=== PATIENT | female | born 1960 | race Caucasian/White ===

== ENCOUNTER 2021-12-04 08:20 | Outpatient (CLI) | payer OTHER, SELFPAY ==
[2021-12-04 10:50] LABS: Chloride* 101 mmol/L (96-114)
[2021-12-04 10:51] LABS: Albumin* 4.9 g/dL (3.3-5.0); Potassium* 4.4 mmol/L (3.6-5.1)
[2021-12-04 10:53] LABS: Bilirubin Total* 0.5 mg/dL (0.1-1.5); Carbon Dioxide* 31 mmol/L (20-32); Cholesterol* 173 mg/dL (90-199); Creatinine* 0.6 mg/dL (0.5-1.5); Estimated Glomerular Filt Rate 101 ml/min; Total Protein* 7.4 g/dL (6.0-8.3)
[2021-12-04 10:54] LABS: Alanine Aminotransferase* 32 U/L (4-35); Alkaline Phosphatase* 87 U/L (40-150); Aspartate Amino Transferase* 36 U/L (12-35); Blood Urea Nitrogen* 11 mg/dL (7-30); Calcium* 9.8 mg/dL (8.4-10.6); Glucose* 113 mg/dL (60-115); HDL Cholesterol* 58 mg/dL (>=50); LDL Cholesterol Calculated 71 mg/dL (<100); Triglycerides* 220 mg/dL (40-149)
[2021-12-04 11:36] LABS: Sodium* 141 mmol/L (135-149)
[2021-12-04 11:41] LABS: Vitamin B12* 595 pg/mL (243-894)
== END 2021-12-04 08:21 | disposition home or self-care (01) ==
PROVIDERS: PCP Family Medicine; Visit Provider Family Medicine
DX: Z01.419 Encounter for gynecological examination (general) (routine) without abnormal findings (principal); E78.5 Hyperlipidemia, unspecified; I10 Essential (primary) hypertension; R20.2 Paresthesia of skin; E66.9 Obesity, unspecified; R73.03 Prediabetes
CPT/HCPCS: 80053; 80061; 82607

== ENCOUNTER 2022-06-12 11:13 | Outpatient (CLI) | payer OTHER, SELFPAY ==
--- NOTE | 2022-06-12 11:30 | CRLHL7_ITS ---
For Patients: As a result of the Cures Act, medical imaging exams and procedure reports are released immediately into your electronic medical record. You may view this report before your referring provider. If you have questions, please contact your health care provider. BILATERAL SCREENING MAMMOGRAM WITH COMPUTER-AIDED DETECTION AND TOMOSYNTHESIS TECHNIQUE: CC and MLO views were obtained. These mammographic images have been obtained using full-field digital technique. These mammographic images were interpreted with the benefit of computer-aided detection. Breast tomosynthesis was used in this interpretation. COMPARISON FILM: 06/08/21, 05/08/20, 04/23/19. FINDINGS: There are scattered areas of fibroglandular density. IMPRESSION: There is no radiographic evidence for malignancy. ASSESSMENT: BI-RADS Category 2: Benign RECOMMENDATION: Routine screening mammogram in 1 year. A lay language report of this examination will be provided to the patient. CHERRI SOLIMAN M.D. Diagnostic/Breast Radiologist [email or web address] Transcribed: 06/12/2022, 1:[address]/Dictated by: Cherri Soliman MD @ 06/12/2022 12:04:00 PM (Electronically Signed)
== END 2022-06-12 11:14 | disposition home or self-care (01) ==
LOC: MAMMO 11:14
PROVIDERS: PCP Family Medicine; Visit Provider Family Medicine
DX: Z12.31 Encounter for screening mammogram for malignant neoplasm of breast (principal)
CPT/HCPCS: 77063; 77067

== ENCOUNTER 2022-08-27 12:53 | Outpatient (CLI) | payer OTHER, SELFPAY ==
--- OUTSIDE RECORDS SUMMARY | 2022-08-27 12:55 | XMS_ITS | Patient Health Record ---
Author Name Unknown Organization [facility] Address [address] [place] [address] Care Team Providers Care Land Acquisition Specialist Name Role Phone Mariana Barbosa Unavailable [phone] Aleah Turenr Unavailable [phone] PROBLEMS Type Condition ICD9-CM Code TAI24-PO Code Onset Dates Condition Status W/U Status Risk SNOMED Code Notes Problem Mixed stress and urge urinary incontinence N39.46 confirmed 961412944 Problem Stress incontinence N39.3 confirmed [id number] Problem Mixed urge and stress incontinence N39.46 confirmed 849820127 Problem Rectocele N81.6 confirmed 489163802 Problem Cystocele, midline N81.11 confirmed 350845088 Problem Overactive bladder N32.81 confirmed [id number] ALLERGIES No Known Allergies ENCOUNTERS from 1960 to 2022-08-27 Encounter Location Date Provider Diagnosis [facility] [address] [place] [address] Mar, Mariana Barbosa Encounter for postoperative care Z48.89 ; Stress incontinence N39.3 and Overactive bladder N32.81 [facility] [address] [place] [address] Mar, Mariana Barbosa Mixed stress and urg e urinary incontinence N39.46 ; Encounter for postoperative care Z48.89 and History of suburethral sling procedure Z98.890 [facility] [address] [place], [place] [id number] Feb, Mariana Barbosa [facility] [address] [place] [address] Feb, Mariana Barbosa Urinary incontinence , unspecified type R32 and Mixed stress and urge urinary incontinence N39.46 [facility] [address] [place], [place] [id number] Dec, Mariana Barbosa [facility] [address] [place], [place] [id number] Dec, Mariana Barbosa [facility] [address] [place] [address] [address] [place] [address] Dec, Mariana Barbosa [facility] [address] [place] [address] Dec, Mariana Barbosa Mixed stress and urg e urinary incontinence N39.46 ; Overactive bladder N32.81 ; Cystocele, midline N81.11 and Rectocele N81.6 [facility] [address] [place] [address] Dec, Mariana Barbosa Urinary incontinence , unspecified type R32 ; Mixed urge and stress incontinence N39.46 and Urinary frequency R35.0 SOCIAL HISTORY Tobacco Use: Social History Observation Description Date Details (start date - stop date) Never Smoker Sex Assigned At : Social History Observation Description Sex Assigned At Unknown Tobacco Use/Smoking Question Answer Notes Are you a never smoker REASON FOR REFERRAL No Information VITAL SIGNS from 1960 to 2022-08-27 Height 65 in Mar, Weight 191.2 lbs Mar, BMI 31.81 kg/m2 Mar, Blood pressure systolic 136 mm Hg Mar, Blood pressure diastolic 92 mm Hg Mar, MEDICATIONS Medication SIG (Take, Route, Frequency, Duration) Notes Start Date End Date Status Omeprazole 20 MG 1 capsule Orally Once a day for 30 day(s) Active Multivitamin Adult - as directed Orally 1 capsule daily Active hydroCHLOROthiazide 25 MG 1 tablet in th morning Orally Once a day for 30 day(s) Active Atenolol 25 MG 1 tablet Orally Once a day for 30 day(s) Active Myrbetriq 25 MG 1 tablet Orally Once a day Active Vitamin D3 1000 UNIT 1 tablet Orally Once a day for 30 day(s) Active Melatonin 3 MG 1 tablet at bedtime as needed with food Orally Once a day for 30 day(s) Active Glucosamine Chondro Complex 2 capsules once daily Active Cholest Off 2 capsules daily Active [place] 3 1200 MG 1 capsule Orally Once a day for 30 day(s) Active Aspirin 81 81 MG 1 tablet Orally Once a day for 30 day(s) Active Tylenol PM Extra Strength 500-25 MG 1 tablet at bedtime as needed Orally Once a day for 30 day(s) Active Trospium Chloride ER 60 MG 1 capsule 1 h our before a meal on an empty stomach Orally Once a day for 30 day(s) Mar, Active Rosuvastatin Calcium 5 MG 1 tablet Orall y Once a day for 30 day(s) Active Probiotic - as directed Orally daily Active RESULTS from 1960 to 2022-08-27 Component Value Reference Range Notes Urinalysis, Routine - IH Reviewed date:12/21/2018 11:31:28 Interpretation: Performing Lab: Notes/Report: Urine Color yellow Yellow - Nathaly Appearance clear Clear - Glucose neg Bilirubin neg Ketone neg Specific [place] 1.020 Blood neg pH 6.0 Protein neg Urobilinogen 0.2 Nitrite neg Leukocytes neg Glucose Bilirubin Ketones Specific [place] Occult Blood pH Protein Urobilinogen Nitrite Leukocytes REASON FOR VISIT No Information MEDICAL (GENERAL) HISTORY Type Description Date Medical History HTN Medical History hx elbow injection Medical History Dyslipidemia Medical History Chronic GERD Medical History Prediabetes Medical History Mixed stress and urge incontinen ce Medical History Obesity (BMI 30.0-34.9) Surgical History Bilateral breast red uction. Suspicious breast tissue discovered, followed by oncology but no cancer dx. Was on tamoxifen for 5 years 04/14/2012 Surgical History meniscus repair of right knee 1 03/2010 Surgical History medial meniscus repair of left knee 04/2005 Surgical History Hemorrhoidectomy 01/18/2013 Surgical History Urethral sling and bulking 02/15 019 MENTAL STATUS No Information ASSESSMENTS Encounter Date Diagnosis Assessment Notes Treatment Notes Treatment Clinical Notes Mar, Encounter for postoperative care (ICD-10 - Z48.89) Today we discussed fully healed from surgery No restrictions, Okay to resume all normal activities Follow up in 6 months to ensure continues to do well, follow up sooner if any issues Mar, Stress incontinence (ICD-10 - N39.3) Mar, Overactive bladder (ICD-10 - N32.81) TOday we discussed some residual urgency and urge incontinence, 90-95% improved from baseline Myrbetriq too expensive Intersted in alterantive medication to try. Rx for trospium sent to pharmacy, alternative could also be vesicare 5mg daily Mar, Other Total face to f tenzin time is 10 minutes, with >50% of time spent in counseling regarding diagnosis, risks and benefits of various treatment plans and expected outcomes. Mar, Mixed stress and urge urinary incontinence (ICD-10 - N39.46) Mar, Encounter for postoperative care (ICD-10 - Z48.89) Today we discussed she is healing appropriately from surgery Continue restrictions for 4 more weeks We reviewed expectations for bleeding and pain All questions answered Mar, History of suburethral sling procedure (ICD-10 - Z98.890) Mar, Other Total face to f tenzin time is 10 minutes, with >50% of time spent in counseling regarding diagnosis, risks and benefits of various treatment plans and expected outcomes. Feb, Urinary incontinence, unspecified type (ICD-10 - R32) Feb, Mixed stress and urge urinary incontinence (ICD-10 - N39.46) Dec, Other Surgeon: Diagnosis: stress incontinence ICD-10: N39.3 Procedure: midurethral sling, cystoscopy CPT: 19378, 16012 Special Equipment: Advantage sling, avail no open [place] scissors, Allis x 4 17 F 70 degree cystoscope 2-0 vicryl Exofin glue 1% lido + epi 10cc Surgeon Notes: Location: [facility] Hospitalization: same day discharge Anesthesia: General *pt will need to be in steep trendelenberg for ~ 5 min of the OR time Allergies: NKDA Health concerns: Time requested (minutes): 60min Consents needed: mesh consent obtained, day of surgery Height: Weight: Date of Surgery: Time of Surgery: Patient Informed: Primary MD: Dec, Mixed stress and urge urinary incontinence (ICD-10 - N39.46) Today we reviewed the diagnosis of stress incontinence. Using diagrams we discussed the cause of FAMILIA is due to weakness of the urethra supportive tissue or of the uretha itself. On exam she was found to have a hypermobile urethra and the cough stress test was *negative She has had prior urodynamic testinng confirming stress incontinence. We reviewed treatment options for stress incontinence include pelvic floor muscle training, OTC poise impressa, incontinence pessary, urethral bulking and an incontience sling. We reviewed the risks, benefits and expected outcomes of each of these therapies. After discussion of risks, benefits and alternatives she desires to proceed with urethral bulking. We reviewed anticipated efficacy is about 70% and there is a chance of recurrence of symptoms over time mainly repeat FAMILIA that may require repeat treatment on average in 3 years. We reviewed method of procedure as office cystoscopy and injection of bulking material. We reviewed risks of the procedure to include: UTI, failure, migration of bulking material, pain at the time of the procedure and incomplete bladder emptying with possible need for self-cath to help with bladder emptying. After discussion she wishes to proceed. Consent was signed for procedure and mesh consent was signed. Dec, Overactive bladder (ICD-10 - N32.81) Today we reviewed the diagnosis of overactive bladder. We reviewed her symptoms are consistent with overactive bladder. On exam she was found to have a normal post void residual. Her urine analysis showed negative for infection. We reviewed treatment options including first line lifestyle modification, fluid management and dietary modifications. A handout was provided. We reviewed other first line options include physical therapy and kegel exerciese. We reviewed the importance of pelvic floor muscle exercises for bladder retraining to increase the time between voids and help decrease her urgency symptoms. We discussed medications can help with her overactive bladdder symptoms. We discussed the two main types of medicaitons are anticholingergics which have the side effects of dry mouth, dry eyes andd constipation. Additonally some women may notice a change in memory with use of anticholingergic medications. Alternative medications includes the beta-3 agonist Myrbetriq which in some women can cause elevation of blood pressure and she should monitor her blood pressure at home if she has a blood pressure cuff and calll us with the results, if she does not have access to a blood pressure cuff she should return in 2 weeks for a blood pressure check. Third line therapy for overactive bladder includes: peripheral tibial nerve stimulation, intradetrusor botox injections and sacral nerve stimulation. We reviewed the mechanism of action, expected outcome and risks and benefits of each of these third line therapies. A handout was provided regarding each of these therapies. After discussion we have decided to start myrbetriq. We discussed urgency has potential to improve after a sling but a sling is not considered a treatment for her overactive bladder. She understands there is also a chance for worsening or no change in urgency after a sling. Samples of myrbetriq 25mg were given today [id number] exp 06/2019 #28 tablets Dec, Cystocele, midline (ICD-10 - N81.11) Today we reviewed the findings on exam of stage 2 cystocele and rectoele. She is not bothered by the prolapse given this we have chosen to persue expectant management for prolaspe Dec, Rectocele (ICD-10 - N81.6) Dec, Other Total face to f tenzin time is 40 minutes, with >50% of time spent in counseling regarding diagnosis, risks and benefits of various treatment plans and expected outcomes. Dec, Urinary incontinence, unspecified type (ICD-10 - R32) The patient was given a voiding collection hat along with a voiding diary. I taught the patient how to fill out the voiding diary and to complete for two 24 hour periods. Explained to the patient that she should bring the completed voiding diary to her consultation appoinment with Dr Barbosa. Five minutes were spent with the patient explaining and answering questions regarding the voiding diary. The patient filled out the Urogynecology Patient Questionnaire. This was scanned to the patient chart and uploaded to patient docs under Urogynecology. Dec, Mixed urge and stress incontinence (ICD-10 - N39.46) Dec, Urinary frequency (ICD-10 - R35.0) Dec, Other Follow up with Dr Barbosa in 2-3 days to discuss the results and to formulate a plan. PLAN OF TREATMENT Medication Medication Name Sig Start Date Stop Date Trospium Chloride ER 60 MG 1 capsule 1 h our before a meal on an empty stomach Orally Once a day for 30 day(s) Mar, Treatment Notes Assessment Notes Clinical Notes Mixed stress and urge urinar y incontinence Today we reviewed the diagnosis of stress incontinence. Using diagrams we discussed the cause of FAMILIA is due to weakness of the urethra supportive tissue or of the uretha itself. On exam she was found to have a hypermobile urethra and the cough stress test was *negative She has had prior urodynamic testinng confirming stress incontinence. We reviewed treatment options for stress incontinence include pelvic floor muscle training, OTC poise impressa, incontinence pessary, urethral bulking and an incontience sling. We reviewed the risks, benefits and expected outcomes of each of these therapies. After discussion of risks, benefits and alternatives she desires to proceed with urethral bulking. We reviewed anticipated efficacy is about 70% and there is a chance of recurrence of symptoms over time mainly repeat FAMILIA that may require repeat treatment on average in 3 years. We reviewed method of procedure as office cystoscopy and injection of bulking material. We reviewed risks of the procedure to include: UTI, failure, migration of bulking material, pain at the time of the procedure and incomplete bladder emptying with possible need for self-cath to help with bladder emptying. After discussion she wishes to proceed. Consent was signed for procedure and mesh consent was signed. Urinary incontinence, unspec ified type The patient was given a voiding collection hat along with a voiding diary. I taught the patient how to fill out the voiding diary and to complete for two 24 hour periods. Explained to the patient that she should bring the completed voiding diary to her consultation appoinment with Dr Barbosa. Five minutes were spent with the patient explaining and answering questions regarding the voiding diary. The patient filled out the Urogynecology Patient Questionnaire. This was scanned to the patient chart and uploaded to patient docs under Urogynecology. Encounter for postoperative care Today braulio alaniz discussed fully healed from surgery No restrictions, Okay to resume all normal activities Follow up in 6 months to ensure continues to do well, follow up sooner if any issues Encounter for postoperative care Today braulio alaniz discussed she is healing appropriately from surgery Continue restrictions for 4 more weeks We reviewed expectations for bleeding and pain All questions answered Overactive bladder Today we reviewed re alaniz diagnosis of overactive bladder. We reviewed her symptoms are consistent with overactive bladder. On exam she was found to have a normal post void residual. Her urine analysis showed negative for infection. We reviewed treatment options including first line lifestyle modification, fluid management and dietary modifications. A handout was provided. We reviewed other first line options include physical therapy and kegel exerciese. We reviewed the importance of pelvic floor muscle exercises for bladder retraining to increase the time between voids and help decrease her urgency symptoms. We discussed medications can help with her overactive bladdder symptoms. We discussed the two main types of medicaitons are anticholingergics which have the side effects of dry mouth, dry eyes andd constipation. Additonally some women may notice a change in memory with use of anticholingergic medications. Alternative medications includes the beta-3 agonist Myrbetriq which in some women can cause elevation of blood pressure and she should monitor her blood pressure at home if she has a blood pressure cuff and calll us with the results, if she does not have access to a blood pressure cuff she should return in 2 weeks for a blood pressure check. Third line therapy for overactive bladder includes: peripheral tibial nerve stimulation, intradetrusor botox injections and sacral nerve stimulation. We reviewed the mechanism of action, expected outcome and risks and benefits of each of these third line therapies. A handout was provided regarding each of these therapies. After discussion we have decided to start myrbetriq. We discussed urgency has potential to improve after a sling but a sling is not considered a treatment for her overactive bladder. She understands there is also a chance for worsening or no change in urgency after a sling. Samples of myrbetriq 25mg were given today [id number] exp 06/2019 #28 tablets Overactive bladder TOday we discussed s ome residual urgency and urge incontinence, 90-95% improved from baseline Myrbetriq too expensive Intersted in alterantive medication to try. Rx for trospium sent to pharmacy, alternative could also be vesicare 5mg daily Cystocele, midline Today we reviewed th e findings on exam of stage 2 cystocele and rectoele. She is not bothered by the prolapse given this we have chosen to persue expectant management for prolaspe Insurance Providers Payer Name Payer Address Payer Phone Insured Name Patient Relationship to Insured Coverage Start Date Coverage End Date Subscriber Number Group Number [id number] (Ins. Bill) [address] [facility] [id number] VALENZUELA Self - patient is the insured [id number] IF[employer]
== END 2022-08-27 12:54 | disposition home or self-care (01) ==
LOC: INJ CL 12:53
PROVIDERS: PCP Family Medicine; Visit Provider Family Medicine
DX: M17.11 Unilateral primary osteoarthritis, right knee (principal); M25.561 Pain in right knee
CPT/HCPCS: 64454

== ENCOUNTER 2022-09-10 12:07 | Outpatient (CLI) | payer OTHER, SELFPAY ==
--- OUTSIDE RECORDS SUMMARY | 2022-09-10 12:09 | XMS_ITS | Patient Health Record ---
Author Name Unknown Organization [facility] [employer] Address [address] [place] [address] Care Team Providers Care Chandelier Maker Name Role Phone Mariana Barbosa Unavailable [phone] Aleah Turner Unavailable [phone] PROBLEMS Type Condition ICD9-CM Code VHP17-GI Code Onset Dates Condition Status W/U Status Risk SNOMED Code Notes Problem Mixed stress and urge urinary incontinence N39.46 confirmed 815049470 Problem Stress incontinence N39.3 confirmed 05433083 Problem Mixed urge and stress incontinence N39.46 confirmed 388677945 Problem Rectocele N81.6 confirmed 760349910 Problem Cystocele, midline N81.11 confirmed 766052253 Problem Overactive bladder N32.81 confirmed [id number] ALLERGIES No Known Allergies ENCOUNTERS from 1960 to 2022-09-10 Encounter Location Date Provider Diagnosis [facility] [address] [place] [address] Mar, Mariana Barbosa Encounter for postoperative care Z48.89 ; Stress incontinence N39.3 and Overactive bladder N32.81 [facility] [address] [place] [address] Mar, Mariana Barbosa Mixed stress and urg e urinary incontinence N39.46 ; Encounter for postoperative care Z48.89 and History of suburethral sling procedure Z98.890 [facility] [address] [place], [place] [id number] Feb, Mariana Barbosa [facility] [address] [place] [address] Feb, Mariana Barbosa Urinary incontinence , unspecified type R32 and Mixed stress and urge urinary incontinence N39.46 [facility] [address] [place], [place] [id number] Dec, Mariana Barbosa [facility] [address] [place], [place] [id number] Dec, Mariana Barbosa [facility] [address] [place] [address] [address] [place] [address] Dec, Mariana Barbosa [facility] [address] [place] [address] Dec, Mariana Barbosa Mixed stress and urg e urinary incontinence N39.46 ; Overactive bladder N32.81 ; Cystocele, midline N81.11 and Rectocele N81.6 [facility] [address] [place] [address] Dec, Mariana Barobsa Urinary incontinence , unspecified type R32 ; [...] No Information VITAL SIGNS from 1960 to 2022-09-10 Height 65 in Mar, Weight 191.2 lbs [...] Active Cholest Off 2 capsules daily Active [place] 3 1200 MG 1 capsule Orally Once [...] Orally daily Active RESULTS from 1960 to 2022-09-10 Component Value Reference Range Notes Urinalysis, Routine - IH Reviewed date:12/21/2018 11:31:28 Interpretation: Performing Lab: Notes/Report: Urine Color yellow Yellow - Nathaly Appearance clear Clear - Glucose neg Bilirubin neg Ketone neg Specific [place] 1.020 Blood neg pH 6.0 Protein neg Urobilinogen 0.2 Nitrite neg Leukocytes neg Glucose Bilirubin Ketones Specific [place] Occult Blood pH Protein Urobilinogen Nitrite Leukocytes [...] ICD-10: N39.3 Procedure: midurethral sling, cystoscopy CPT: 07504, 41406 Special Equipment: Advantage sling, avail no open [place] scissors, Allis x 4 17 F 70 degree cystoscope 2-0 vicryl Exofin glue 1% lido + epi 10cc Surgeon Notes: Location: [facility] Hospitalization: same day discharge Anesthesia: General *pt [...] Samples of myrbetriq 25mg were given today [id number] exp 06/2019 #28 tablets Dec, Cystocele, midline [...] Samples of myrbetriq 25mg were given today [id number] exp 06/2019 #28 tablets Overactive bladder TOday [...] Number [employer] (Ins. Bill) [address] [facility] [id number] VALENZUELA Self - patient is the insured [id number] [employer]B
== END 2022-09-10 12:08 | disposition home or self-care (01) ==
LOC: INJ CL 12:07
PROVIDERS: PCP Family Medicine; Visit Provider Family Medicine
DX: M17.11 Unilateral primary osteoarthritis, right knee (principal); M25.561 Pain in right knee
CPT/HCPCS: 64624; J2250; J3010

== ENCOUNTER 2022-09-24 14:00 | Outpatient (CLI) | payer OTHER, SELFPAY ==
--- OUTSIDE RECORDS SUMMARY | 2022-09-26 07:42 | XMS_ITS | Patient Health Record ---
Author Name Unknown Organization [facility] Address [address] [place], [place] [id number] Support Name Relationship Address Phone NEERAJ CHAVEZ Guarantor Unknown [phone] REASON FOR REFERRAL No Information MEDICATIONS Medication SIG (Take, Route, Frequency, Duration) Notes Start Date End Date Status Trospium Chloride ER 60 MG 1 capsule 1 h our before a meal on an empty stomach Orally Once a day for 30 day(s) 04/15/2019 Active Vitamin D3 1000 UNIT 1 tablet Orally Once a day for 30 day(s) Active Atenolol 25 MG 1 tablet Orally Once a day for 30 day(s) Active Myrbetriq 25 MG 1 tablet Orally Once a day Active hydroCHLOROthiazide 25 MG 1 tablet in morning Orally Once a day for 30 day(s) Active Cholest Off 2 capsules daily Active Rosuvastatin Calcium 5 MG 1 tablet Orall y Once a day for 30 day(s) Active Aspirin 81 81 MG 1 tablet Orally Once a day for 30 day(s) Active Multivitamin Adult - as directed Orally 1 capsule daily Active Glucosamine Chondro Complex 2 capsules once daily Active Melatonin 3 MG 1 tablet at bedtime as needed with food Orally Once a day for 30 day(s) Active Tylenol PM Extra Strength 500-25 MG 1 tablet at bedtime as needed Orally Once a day for 30 day(s) Active [place] 3 1200 MG 1 capsule Orally Once a day for 30 day(s) Active Probiotic - as directed Orally daily Active Omeprazole 20 MG 1 capsule Orally Once a day for 30 day(s) Active SOCIAL HISTORY Tobacco Use: Social History Observation Description Date Details (start date - stop date) Never Smoker NA - NA Sex Assigned At : Social History Observation Description Sex Assigned At Unknown Tobacco Use/Smoking Question Answer Notes Are you a nonsmoker PROBLEMS Problem Type ICD Code Onset Dates Problem Status W/U Status Risk SNOMED Code Notes Problem Overactive bladder (N32.81) Active confirmed 395363944 Problem Cystocele, midline (N81.11) Active confirmed 654036414 Problem Rectocele (N81.6) Active confirmed 157216405 Problem Stress incontinence (N39.3) Active confirmed 89863608 Problem Mixed stress and urge urinary incontinence (N39.46) Active confirmed 702275271 Problem Mixed urge and stress incontinence (N39.46) Active confirmed Mixed incontinence (661640749) PLAN OF TREATMENT No Information Insurance Providers Payer Name Payer Address Payer Phone Subscriber Number Group Number Insured Name Patient Relationship to Insured Coverage Start Date Coverage End Date [employer] (Ins. Bill) [address] [place], [place] [id number] [id number] NEERAJ CHAVEZ Self - patient is the insured MEDICAL (GENERAL) HISTORY Medical History History ICD Code HTN hx elbow injection Dyslipidemia Chronic GERD Prediabetes Mixed stress and urge incontinence Obesity (BMI 30.0-34.9) Surgical History Surgery Date(Month/Year) Bilateral breast reduction. Suspicious breast tissue discovered, followed by oncology but no cancer dx. Was on tamoxifen for 5 years 04/14/2012 meniscus repair of right knee 01/2011 medial meniscus repair of left knee 05/06 05 Hemorrhoidectomy 01/18/2013 Urethral sling and bulking 02/2019
== END 2022-09-24 14:01 | disposition home or self-care (01) ==
LOC: INJ CL 09-26 07:40
PROVIDERS: PCP Family Medicine; Visit Provider Family Medicine
DX: M17.12 Unilateral primary osteoarthritis, left knee (principal); M25.562 Pain in left knee
CPT/HCPCS: 64454

== ENCOUNTER 2022-10-08 13:08 | Outpatient (CLI) | payer OTHER, SELFPAY ==
--- OUTSIDE RECORDS SUMMARY | 2022-10-08 13:11 | XMS_ITS | Patient Health Record ---
Author Name Unknown Organization [facility] Address [address] [place], [place] [id number] Support Name Relationship Address Phone NEERAJ CHAVEZ Guarantor Unknown [phone] REASON FOR REFERRAL No Information MEDICATIONS Medication [...] Once a day for 30 day(s) Active [place] 3 1200 MG 1 capsule Orally Once [...] Notes Problem Overactive bladder (N32.81) Active confirmed 466319134 Problem Cystocele, midline (N81.11) Active confirmed 575237277 Problem Rectocele (N81.6) Active confirmed 952229633 Problem Stress incontinence (N39.3) Active confirmed 64916354 Problem Mixed stress and urge urinary incontinence (N39.46) Active confirmed 387295154 Problem Mixed urge and stress incontinence (N39.46) Active confirmed Mixed incontinence (248751304) PLAN OF TREATMENT No Information Insurance Providers Payer Name Payer Address Payer Phone Subscriber Number Group Number Insured Name Patient Relationship to Insured Coverage Start Date Coverage End Date [employer] (Ins. Bill) [address] [place], [place] [id number] [id number] NEERAJ CHAVEZ Self - patient is [...]
== END 2022-10-08 13:09 | disposition home or self-care (01) ==
LOC: RAD 13:09
PROVIDERS: PCP Family Medicine; Visit Provider Family Medicine
DX: M17.12 Unilateral primary osteoarthritis, left knee (principal); M25.562 Pain in left knee
CPT/HCPCS: 64624; J2250; J3010

== ENCOUNTER 2022-12-03 09:50 | Outpatient (CLI) | payer OTHER, SELFPAY ==
--- OUTSIDE RECORDS SUMMARY | 2022-12-04 11:08 | XMS_ITS | Patient Health Record ---
Author Name Unknown Organization [facility] Address [address] [place], [place] [id number] Support Name Relationship Address Phone NEERAJ CHAVEZ Guarantor Unknown [phone] REASON FOR REFERRAL No Information MEDICATIONS Medication [...] Once a day for 30 day(s) Active [place] 3 1200 MG 1 capsule Orally Once [...] Notes Problem Overactive bladder (N32.81) Active confirmed 913554740 Problem Cystocele, midline (N81.11) Active confirmed 298406503 Problem Rectocele (N81.6) Active confirmed 716957726 Problem Stress incontinence (N39.3) Active confirmed 79153277 Problem Mixed stress and urge urinary incontinence (N39.46) Active confirmed 542207545 Problem Mixed urge and stress incontinence (N39.46) Active confirmed Mixed incontinence (562427845) PLAN OF TREATMENT No Information Insurance Providers Payer Name Payer Address Payer Phone Subscriber Number Group Number Insured Name Patient Relationship to Insured Coverage Start Date Coverage End Date [employer] (Ins. Bill) [address] [place], [place] [id number] [id number] NEERAJ CHAVEZ Self - patient is [...]
== END 2022-12-03 09:51 | disposition home or self-care (01) ==
LOC: NFLDREF 12-04 11:06
PROVIDERS: PCP Family Medicine; Referring Provider Family Medicine; Visit Provider Family Medicine
DX: Z00.00 Encounter for general adult medical examination without abnormal findings (principal); I10 Essential (primary) hypertension; E78.5 Hyperlipidemia, unspecified; R73.03 Prediabetes
CPT/HCPCS: 80053; 80061

== ENCOUNTER 2022-12-23 06:02 | Day surgery (SDC) | payer OTHER, SELFPAY ==
[2022-12-23] VITALS (18 sets, daily range): BP systolic 102–171; BP diastolic 60–91; PULSE 53–70; RESP 14–16; TEMP 36.1–36.6; O2SAT 93–99; BMI 33.1
--- OUTSIDE RECORDS SUMMARY | 2022-12-23 06:05 | XMS_ITS | Patient Health Record ---
Author Name Unknown Organization [facility] Address [address] [place], [place] [id number] Support Name Relationship Address Phone NEERAJ CHAVEZ Guarantor Unknown [phone] REASON FOR REFERRAL No Information MEDICATIONS Medication [...] Once a day for 30 day(s) Active [place] 3 1200 MG 1 capsule Orally Once [...] Notes Problem Overactive bladder (N32.81) Active confirmed 894352543 Problem Cystocele, midline (N81.11) Active confirmed 356631766 Problem Rectocele (N81.6) Active confirmed 754521453 Problem Stress incontinence (N39.3) Active confirmed 09465259 Problem Mixed stress and urge urinary incontinence (N39.46) Active confirmed 096741567 Problem Mixed urge and stress incontinence (N39.46) Active confirmed Mixed incontinence (216676535) PLAN OF TREATMENT No Information Insurance Providers Payer Name Payer Address Payer Phone Subscriber Number Group Number Insured Name Patient Relationship to Insured Coverage Start Date Coverage End Date [employer] (Ins. Bill) [address] [place], [place] [id number] IFB NEERAJ CHAVEZ Self - patient is [...]
[2022-12-23] MEDS: OXYCODONE (CR) 10 MG TAB.ER.12H PO (06:31)
[2022-12-23] MEDS: ACETAMINOPHEN 500 MG TABLET 1000 MG PO (06:31)
[2022-12-23] MEDS: SODIUM CHLORIDE 0.9 % (FLUSH) 10 ML SYRINGE IVF (06:34)
[2022-12-23] MEDS: LACTATED RINGERS 1000 ML 1,000 ML 100 ML IV ×2 (06:34→08:47)
--- NOTE | 2022-12-23 07:00 | SUR.PREOP ---
TIME?OUT:?0700 PT/RN/MDA?VERIFICATION?OF?SURGICAL?SITE,?PROCEDURE,?AND?CONSENT OBTAINED?PRIOR?TO?INVASIVE?PROCEDURE.
[2022-12-23] MEDS: MIDAZOLAM HCL 1 MG/ML inj IVP (07:23)
[2022-12-23] MEDS: fentaNYL 100 MCG/2 ML inj IVP (07:23)
[2022-12-23] MEDS: CEFAZOLIN 2 GM in 0.9 % SODIUM CHLORIDE Mini-bag 100 ML IVPB (07:40)
[2022-12-23] MEDS: TRANEXAMIC ACID 100 MG/ML INJ 1000 MG IV (07:45)
--- NOTE | 2022-12-23 08:09 | W.ANESCHARGE ---
Anesthesia Charges Start Date/Time Anesthesia Start Date: 12/23/22 Anesthesia Start Time: 07:29 Stop Date/Time Anesthesia Stop Date: 12/23/22 Anesthesia Stop Time: 09:25
--- NOTE | 2022-12-23 08:09 | W.PM.NB ---
Nerve Block Nerve Block Time Seen by Provider: 07:24 Date Seen: 12/23/22 Type of block requested by surgeon for post-operative analgesia: adductor canal Side: left Time out performed: Yes Verification of patient name: Yes Verification of date of : Yes Site marking: site marked Name of person performing procedure: Dennis Continuous monitoring Was continuous monitoring of O2 sat, B/P, pumping supervisor, recorded every 15 minutes?: Yes Procedure Checklist: sterile prep, needles and gloves Ultrasound guided. Images saved: Yes Medications given in 5ml increments after negative aspiration: Ropivicaine %: 0.5 mL: 20 Needle gauge: 20 Decadron (mg): 10 Precedex (mcg): 25 Patient tolerated procedure well: Yes Additional comments: Needle noted adjacent to nerve Block Charges Block Charge (with Pro Fee): Femoral Nerve Use of Ultrasound Machine for Block: Yes- US Guidance/pain block
--- NOTE | 2022-12-23 08:10 | P.NB_ITS ---
Nerve Block Nerve Block Time Seen by Provider: 07:24 Date Seen: 12/23/22 Type of block requested by surgeon for post-operative analgesia: geniculars Side: left Time out performed: Yes Verification of patient name: Yes Verification of date of : Yes Site marking: site marked Name of person performing procedure: Dennis Continuous monitoring Was continuous monitoring of O2 sat, B/P, cafeteria monitor, recorded every 15 minutes?: Yes Procedure Checklist: sterile prep, needles and gloves Medications given in 5ml increments after negative aspiration: Ropivicaine %: 0.5 mL: 9 Needle gauge: 25 Patient tolerated procedure well: Yes Block Charges Block Charge (with Pro Fee): Genicular Nerve Block Use of Ultrasound Machine for Block: No
--- NOTE | 2022-12-23 08:59 | P.ORPRC_ITS ---
Procedure Note Date of procedure: 12/23/22 Procedure: PREOPERATIVE DIAGNOSIS: 1. Left knee osteoarthritis, primary, severe POSTOPERATIVE DIAGNOSIS: 1. Left knee osteoarthritis, primary, severe PROCEDURE: 1. Left total knee arthroplasty SURGEON: Chi Hawley MD. SCRAPER OPERATOR: THAO Anne - Of note, a skilled phlebotomist lab assistant was critical for this case to aid in patient positioning, tissue retraction, limb manipulation/positioning, and closure. ANESTHESIA: Spinal anesthetic EBL: 50ml IMPLANTS: DePuy J&J uncemented femur/tibia, cemented patella TKA - Attune Press fit PS femur size 5 regular, size 4 tibia, 5 poly spacer, 32 mm cemented patella TOURNIQUET: 75 min at 300 torr COMPLICATIONS: None evident INDICATIONS: The patient is a pleasant 62-year-old female who has experienced severe left knee pain and difficulty bearing weight. Workup included x-rays which revealed severe osteoarthrosis in the knee. Given the deformity, the dysfunction, and the pain, as well as the failure of nonoperative management, re commendation was made for surgery. FINDINGS: Full-thickness chondral loss broadly throughout the medial compartment with degenerative meniscus pathology. Significant chondromalacia patellofemoral compartment and to a lesser degree lateral compartment. Large effusion upon entering joint. DESCRIPTION OF PROCEDURE: Following a thorough discussion of risks, benefits, and alternatives consent was obtained and the left knee was marked. The patient was brought to the operating room and placed supine on the operating table. Induction of anesthesia was undertaken. 2 g IV Ancef and 1 g tranexamic acid was administered within 1 hr of incision preoperatively. Proper time-out was performed identifying proper patient, site, procedure. The operative extremity was prepped and draped in the appropriate sterile fashion using ChloraPrep after the patient was positioned supine with all bony prominences well padded. A longitudinal, anterior, midline skin incision was made starting approximately 3cm proximal to the superior pole of the patella and advanced distal to the tibial tubercle. A median parapatellar arthrotomy was created. A medial subperiosteal sleeve was created with knife, ravi elevator and curved osteotome. The retropatellar fatpad was resected and the synovium in the suprapatellar pouch excised to visualize the anterior femoral cortex. Femoral preparation was performed via an intramedullary guide. Step drill allowed access into the femoral canal. The distal cutting guide was placed with 5? of valgus and 11 mm cut on the distal femur due to a 10 degree flexion contracture. Femur was sized using a anterior referencing guide in 3? of external rotation. This found have a best fit with the sizing noted above. The 4 in 1 cutting block was then placed, and the distal femur shaped accordingly. The box cut was then created and the trial implant inserted to confirm appropriate fit. We turned our attention to the proximal tibia. Extramedullary guide was util ized for cutting with the goal of being 90 degree cut from the mechanical axis of the tibia in the varus/valgus plane utilizing tibial crest as the primary alignment. Initially a 2 mm resection was performed from the medial tibial plateau. Ultimately, balancing was achieved in both flexion and extension in both varus and valgus. The knee was able to achieve full extension comfortably. The patella was initially measured and found have a thickness of 22 mm. It was resected back to approximately 14 mm. It was sized to be a best fit with as noted above. This was drilled & trial placed. All trials were placed and found to have an excellent stability and balance. At this stage, trial implants were removed, the tibia and femoral components were opened and inserted. Thereafter, the patella was thoroughly irrigated normal saline and dried. The cement was previously mixed on the back table and cement placed followed by the implant. This was clamped and allowed remained stable until the cement cured. The real poly spacer was opened and inserted. All extra cement was removed, and a 3 min Betadine soak performed. Finally, a final irrigation round with normal saline was performed. Closure performed with 0 PDS and #0 Stratafix for the quad tendon/retinaculum. 2-0 Vicryl/Stratafix for the subcutaneous and 4-0 Monocryl for subcuticular closure. Dressings were applied and the patient was awoken from anesthesia after the tourniquet deflated and transferred the PACU in stable condition. A skilled phlebotomist lab assistant was critical for this case to aid in patient positioning, tissue retraction, bone exposure, limb manipulation/positioning, patient safety, and closure. PLAN: 1. Weight bear as tolerated operative extremity. 2. 23 hr perioperative antibiotics. 3. Ice. 4. PT/OT consults for ambulation assistance/mobility education. 5. Social work consult for discharge planning. 6. DVT prophylaxis with at SCDs, Lm Hose, and aspirin twice daily.
--- NOTE | 2022-12-23 09:23 | W.ANESCHARGE ---
Anesthesia Charges Start Date/Time Anesthesia Start Date: 12/23/22 Anesthesia Start Time: 07:29 Stop Date/Time Anesthesia Stop Date: 12/23/22 Anesthesia Stop Time: 09:25
--- NOTE | 2022-12-23 10:00 | SUR.PHASEI ---
patient met discharge criteria per anesthesia
--- NOTE | 2022-12-23 10:57 | CRLHL7_ITS ---
For Patients: As a result of the Cures Act, medical imaging exams and procedure reports are released immediately into your electronic medical record. You may view this report before your referring provider. If you have questions, please contact your health care provider. Indication: POST-OP TKA Technique: Two views left knee Findings/Impression: Hardware from a left total knee arthroplasty is in satisfactory position. Bone alignment is normal. No sign of acute fracture. Postop changes are within normal limits. Dictated by Richard Ospina MD @ 12/23/2022 11:10:10 AM (Electronically Signed)
--- NOTE | 2022-12-23 11:32 | W.PM.H&PU ---
History & Physical Update History & Physical Update H&P Reviewed and patient assessed: No changes noted
--- NOTE | 2022-12-23 12:39 | SUR.PHASEII ---
Transfered patient from bed to recliner, patient ambulated well using walker. Large void in bed noted after transferring patient. Attempted to void on toilet without results. Patient tolerating toast, yogurt and ice water.
--- NOTE | 2022-12-23 13:32 | SUR.PHASEII ---
Pt brought to PT.
--- NOTE | 2022-12-23 14:29 | SUR.PHASEII ---
Patient returned from Physical Therapy by wheelchair with Physical Therapist. Phystical Therapist cleared patient to be discharged. Upon return to [facility], patient voided in bathroom. Patient verbalized readiness to be discharged and understanding of discharge instructions. Patient and verbalized that they are aware of who to contact if they have questions and what to do in emergency situations. Patient was transported to her vehicle by wheelchair.
== END 2022-12-23 14:25 | disposition home or self-care (01) ==
PROVIDERS: PCP Family Medicine; Visit Provider Orthopaedic Surgery Sports Medicine
PROC: (CPT 27447; principal; 2022-12-23 07:30)
DX: M17.12 Unilateral primary osteoarthritis, left knee (principal); G89.18 Other acute postprocedural pain
CPT/HCPCS: 27447; 01402; 64447; 64454; 73560; 76942; 97110; 97116; 97161; A9270; C1776; J0690; J1100; J2250; J2405; J2704; J2795; J3010; J7120

== ENCOUNTER 2022-12-25 16:51 | Inpatient (IN) | payer OTHER, SELFPAY ==
[2022-12-25 17:01] VITALS: BP 121/81; PULSE 97; RESP 16; TEMP 36.7; O2SAT 97; BMI 33.0
[2022-12-25 17:16] LABS: Appearance Urine Clear (Clear); Bilirubin Urine Negative (Negative); Blood Urine Trace-intact (Negative); Color Urine Dark yellow (Yellow); Glucose Urine Negative (Negative); Ketones Urine Negative (Negative); Leukocyte Esterase Urine Negative (Negative); Nitrite Urine Negative (Negative); Protein Urine 1+ (Negative); Specific Gravity Urine 1.025 (1.000-1.030); Urobilinogen Urine 0.2 (0.2-1.0)
[2022-12-25 17:38] LABS: RBC Urine 0-2 (0-2); Squamous Epithelial Cell Urine Few (None-Few); WBC Urine 0-2 (0-5)
[2022-12-25 18:44] VITALS: BP 142/83; PULSE 91; RESP 18; O2SAT 94
--- NOTE | 2022-12-25 18:49 | ED.ABDPAIN ---
HPI - Abdominal Pain General Time Seen by Provider: 18:49 Date Seen: 12/25/22 Chief Complaint: Abdominal Pain Stated Complaint: constipation post OP Time Seen by Provider: 12/25/22 18:39 Source: patient and RN notes reviewed Mode of arrival: ambulatory Limitations: no limitations History of Present Illness HPI narrative: This 62-year-old female is coming in with postoperative constipation. She had a left knee replacement on Friday. She has been using oxycodone, taking 1-2 senna day. She has not had a bowel movement since Friday. She really cannot eat anything, does admit that she had 3 episodes of emesis yesterday. She is getting abdominal pain and cramping. She is still urinating but no concerning urinary symptoms, still feels like she can drink fine. She has had no fevers. Her pain in her knee is controlled. She has only taken Tylenol today and used ice, feels that the knee pain is fine. She did get a dose of MiraLax in today but this was the 1st day. She is concerned about her abdomen at this time. Not passing flatus today. MD elicited complaint: abdominal pain Pertinent past history: constipation Related Data Home Medications Medication Instructions Recorded Confirmed aspirin 81 mg tablet,delayed 81 mg PO QDAY 10/22/21 12/25/22 release cholecalciferol (vitamin D3) 25 1,000 unit PO DAILY 10/22/21 12/25/22 mcg (1,000 unit) capsule multivitamin 1 tab PO QDAY 10/22/21 12/25/22 diclofenac sodium 1 % topical gel 2 g topical QID PRN 12/05/22 12/25/22 melatonin 10 mg tablet 10 mg PO .Bedtime PRN 12/05/22 12/25/22 bisacodyl 1 tab PO BID 12/25/22 12/25/22 ibuprofen 200 mg tablet (Advil) 400 mg PO Q8H 12/25/22 12/25/22 Previous Rx's Medication Instructions Recorded atenolol 25 mg tablet 25 mg PO DAILY #90 tabs 12/05/22 hydrochlorothiazide 25 mg tablet 25 mg PO DAILY #90 tabs 12/05/22 omeprazole 20 mg tablet,delayed 20 mg PO DAILY #90 tabs 12/05/22 release rosuvastatin 5 mg tablet 5 mg PO .Bedtime #90 tabs 12/05/22 trospium 60 mg capsule,extended 60 mg PO QDAY #90 caps 12/05/22 release 24 hr acetaminophen 500 mg capsule 500 - 1,000 mg (1 - 2 x 500 mg) PO 12/23/22 Q6H PRN #100 caps ondansetron 4 mg disintegrating 4 mg PO Q8H #15 tabs 12/23/22 tablet oxycodone 5 mg tablet 5 mg PO Q4-8H PRN pain #40 tabs 12/23/22 sennosides 8.6 mg-docusate sodium 1 tab-cap PO BID PRN constipation 12/23/22 50 mg tablet (Senna-S) #60 tabs Allergies Allergy/AdvReac Type Severity Reaction Status Date / Time No Known Allergies Allergy Verified 12/25/22 19:40 Review of Systems Status of ROS Reports: 6 or more systems reviewed and unremarkable except as noted in History and below [facility] Medical History Normal nuclear stress test Obesity (BMI 30.0-34.9) ?E66.9 - Obesity, unspecified (ICD-10) History of hemorrhoids ?Z87.19 - Personal history of other diseases of the digestive system (ICD-10) Urge incontinence of urine ?N39.41 - Urge incontinence (ICD-10) Prediabetes (2017) ?R73.03 - Prediabetes (ICD-10) Mixed stress and urge urinary incontinence ?N39.46 - Mixed incontinence (ICD-10) Hypertension ?I10 - Essential (primary) hypertension (ICD-10) Dyslipidemia ?E78.5 - Hyperlipidemia, unspecified (ICD-10) Chronic gastroesophageal reflux disease ?K21.9 - Gastro-esophageal reflux disease without esophagitis (ICD-10) Surgical History History of arthroscopy of left knee (05/09/05) ?Z98.890 - Other specified postprocedural states (ICD-10) History of arthroscopy of right knee (10/17/10) ?Z98.890 - Other specified postprocedural states (ICD-10) History of surgery (01/27/19) ?Z98.890 - Other specified postprocedural states (ICD-10) History of carpal tunnel surgery of right wrist (08/22/21) ?Z98.890 - Other specified postprocedural states (ICD-10) Status post laparoscopic cholecystectomy (04/24/21) ?Z90.49 - Acquired absence of other specified parts of digestive tract (ICD-10) History of colonoscopy (2014) ?Z98.890 - Other specified postprocedural states (ICD-10) History of bladder surgery (02/2019) ?Z98.890 - Other specified postprocedural states (ICD-10) History of bilateral breast reduction surgery (2010) ?Z98.890 - Other specified postprocedural states (ICD-10) Family History Sister Breast cancer Myocardial infarction Type 2 diabetes mellitus Father Myocardial infarction, Onset Age: 69 Mother Myocardial infarction, Onset Age: 70 Type 2 diabetes mellitus Brother Myocardial infarction, Onset Age: 67 Type 2 diabetes mellitus Other High blood pressure Osteoarthritis Social History Narrative: Does not exercise on regular basis due to knee pain, 2 cats , secretery firm, 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 drinker,5/week What is your current living situation?: I presently have a place to live Problems where you live: no known problems Problems where you live details: none In the past 12 months, utilities in danger of being shut off: no In past 12 months, lack of transportation kept you from medical appts, meetings, work, or getting things needed for daily living: no In the past 12 mos, have been you worried that your food would run out before you had money to buy more?: never true In the past 12 mos, the food you bought just didn't last and you didn't have money to buy more?: never true Highest level of school completed/degree received: high school graduate Smoking Status: Never smoker Do you use any of these nicotine containing products: None Second hand tobacco smoke exposure: No How often do you have a drink containing alcohol: 2-4 times a month Alcohol type: beer and wine How many standard drinks containing alcohol do you have on a typical day: 1 or 2 How often do you have six or more drinks on one occasion: Never AUDIT-C Alcohol total score: 2 Non-prescribed substance use: denies use Caffeine: No How often does anyone, including family, friends and others, physically hurt you: never How often does anyone, including family, friends and others, insult or talk down to you: never How often does anyone, including family, friends and others, threaten you with harm: never How often does anyone, including family, friends and others, scream or curse at you: never Little interest or pleasure in doing things: not at all Feeling down, depressed, or hopeless: not at all Are you using contraception or practicing any form of control: No service: No Exam Const: Vital Signs, click to edit/add: Vital Signs - 24 hr 12/25/22 17:01 12/25/22 18:44 12/25/22 21:30 Temperature 98.1 F Pulse Rate [Left P ulse Oximeter] Pulse Rate [Pulse Oximeter] 97 91 Respiratory Rate 16 18 Blood Pressure [Ri ght Arm] Blood Pressure [Ri ght Upper Arm] 121/81 142/83 H Pulse Oximetry 97 94 95 Oxygen Delivery Me thod Room Air Room Air 12/25/22 21:30 Temperature 99.7 F H Pulse Rate [Left P ulse Oximeter] 93 Pulse Rate [Pulse Oximeter] Respiratory Rate 18 Blood Pressure [Ri ght Arm] 134/72 Blood Pressure [Ri ght Upper Arm] Pulse Oximetry 95 Oxygen Delivery Me thod Room Air This 62-year-old female is alert, interactive, no apparent distress. She is lying in the bed in exam room 2. Sclera clear, pupils equal round reactive. Lungs clear at the axilla anteriorly, no tachypnea, able to speak in complete sentences. CV regular rate and rhythm, no murmur, normal S1 and S2. Abdomen is soft, nontender, nondistended. She has faint bowel sounds, certainly not very active. Her bandage over the left anterior knee looks to be clean dry intact, no concerning erythema. Documenting provider has reviewed patient's vital signs: yes Course Course ED Course: Will place an IV, make sure she is hydrated with 1 L normal saline. Will get basic labs with basic metabolic panel and CBC, obtain flat and upright of her abdomen to look at the bowel. Need to make sure that there is no evidence of any obstruction. If there is no obstruction, can discuss bowel management with her further. At this time, do not feel a CT is indicated but would consider this if there is any concerning changes with are pending labs or imaging. Reevaluation(s) Time of Reevaluation #1: 19:12 Reevaluation #1: Reviewed patient's abdominal imaging in on my preliminary review, do see air-fluid levels that certainly suggest obstructive process, do not see significant stool in the lower colon. Have ordered CT abdomen pelvis with IV contrast. Have updated patient on this. Will make her NPO at this time. Time of Reevaluation #2: 19:59 Reevaluation #2: Nursing staff reporting lab result of potassium 2.9. Have ordered normal saline with 20 mEq potassium maintenance as well as 3-10 mEq potassium IV riders. Consultations Consultation #1: Spoke with hospitalist Dr. Alexander. He will be down to see the patient. It remains to be seen if this is colitis like this CT showing verses a postop ileus. She is also hypokalemic. He agrees to accept the patient for the hospitalist service. Time: 20:24 Vital Signs Vital signs: Initial Vital Signs Temperature 98.1 F 12/25/22 17:01 Temperature Source Temporal Artery Scan 12/25/22 17:01 Pulse Rate 97 12/25/22 17:01 Respiratory Rate 16 12/25/22 17:01 Blood Pressure 121/81 12/25/22 17:01 Blood Pressure Mean 94 12/25/22 17:01 Blood Pressure Position Sitting 12/25/22 17:01 Pulse Oximetry 97 12/25/22 17:01 Oxygen Delivery Method Room Air 12/25/22 17:01 Vital Signs Temperature 98.1 F 12/25/22 17:01 Pulse Rate 97 12/25/22 17:01 Respiratory Rate 16 12/25/22 17:01 Blood Pressure 121/81 12/25/22 17:01 Pulse Oximetry 97 12/25/22 17:01 Oxygen Delivery Method Room Air 12/25/22 17:01 Temperature 99.7 F H 12/25/22 21:30 Pulse Rate 93 12/25/22 21:30 Respiratory Rate 18 12/25/22 21:30 Blood Pressure 134/72 12/25/22 21:30 Pulse Oximetry 95 12/25/22 21:30 Oxygen Delivery Method Room Air 12/25/22 21:30 MDM - Abdominal Pain Lab Data Attestation: I reviewed the patient's lab results. Labs: Lab Results 12/25/22 12/25/22 Range/Units 17:10 19:24 WBC 22.17 H (4.50-11.00) K/uL RBC 3.96 L (4.00-5.20) m/uL Hgb 11.5 L (12.0-16.0) gm/dL Hct 35.3 (33.0-51.0) % MCV 89 (80-100) fL MCH 29 (26-34) pg MCHC 33 (32-36) gm/dL RDW Coeff of Ankur 14.4 (11.5-15.5) % Plt Count 350 (140-440) K/uL Neut % (Auto) 84.9 H (42.0-72.0) % Lymph % (Auto) 6.6 L (20-44) % [place] % (Auto) 8.2 (0.0-11.0) % Eos % (Auto) 0.0 (0.0-7.0) % Baso % (Auto) 0.0 (0.0-3.0) % Neut # (Auto) 18.80 H (1.7-7.0) K/uL Lymph # (Auto) 1.50 (0.90-2.90) K/uL [place] # (Auto) 1.80 H (0.00-0.90) K/UL Eos # (Auto) 0.00 (0.00-0.50) K/uL Baso # (Auto) 0.00 (0.00-0.30) K/uL Abs Immat Gran (auto) 0.10 (0.00-0.30) K/uL Imm/Tot Granulo (auto) 0.3 % Sodium 133 L (135-149) mmol/L Potassium 2.9 L* (3.6-5.1) mmol/L Chloride 94 L (96-114) mmol/L Carbon Dioxide 29 (20-32) mmol/L Anion Gap 10 (7-15) mEq/L BUN 20 (7-30) mg/dL Creatinine 0.6 (0.5-1.5) mg/dL Estimated Creat Clear 49.08 Estimated GFR 100 ml/min Glucose 139 H (60-115) mg/dL Calcium 8.8 (8.4-10.6) mg/dL C-Reactive Protein 38.1 H (0.5-1.0) mg/dL Urine Color Dark yellow (Yellow) Urine Appearance Clear (Clear) Urine pH 6.0 (5.0-8.5) Ur Specific [place] 1.025 (1.000-1.030) Urine Protein 1+ A (Negative) Urine Glucose (UA) Negative (Negative) Urine Ketones Negative (Negative) Urine Blood Trace-intact A (Negative) Urine Nitrite Negative (Negative) Urine Bilirubin Negative (Negative) Urine Urobilinogen 0.2 (0.2-1.0) Ur Leukocyte Esterase Negative (Negative) Urine RBC 0-2 (0-2) Urine WBC 0-2 (0-5) Ur Squamous Epith Cells Few (None-Few) Urine Bacteria None (None) Imaging Data Abdominal x-ray: Attestation: I have reviewed the pertinent imaging results. Radiologist's impression: Patient: NEERAJ CHAVEZ Facility:?[facility] Patient ID:?[id number] Site Patient ID:?[id number]. Site :?[id number] Study:?XRay Abdomen 2 VIEWS-12/25/2022 7:31:48 PM Ordering Physician:Kameron Benavides Final Report: Indication: Nausea, vomiting and constipation Technique: None Comparison: Upright and supine views the abdomen were acquired Findings: There is no free air. There is distention of bowel with air-fluid levels. This appears to be primarily colon. This raises the possibility a colonic obstruction. Consider a CT. Impression: Abnormally dilated bowel with air-fluid levels. This is a colon and could represent an ileus or low colonic obstruction. No free air. Consider a CT Dictated by Santy Jorge MD @ 12/25/2022 7:53:29 PM (Electronic Signature) CT scan - abdomen: Attestation: I have reviewed the pertinent imaging results. Radiologist's impression: Patient: NEERAJ CHAVEZ Facility:?[facility] Patient ID:?[id number] Site Patient ID:?[id number]. Site :?[id number] Study:?CT Abdomen/Pelvis W/94CC [id number]/[id number] 7:47:24 PM Ordering Physician:Kameron Benavides Final Report: INDICATION: abnormal abdomen xray, nausea, vomiting, no stool output, abdominal pain. TECHNIQUE: CT abdomen and pelvis acquired with 94 cc Isovue 370 IV contrast. COMPARISON: None. FINDINGS: Lower chest: Mild bibasilar atelectasis. Liver: Unremarkable. Normal in size and attenuation. No suspicious masses. Gallbladder and bile ducts: Status postcholecystectomy. No intra or extrahepatic biliary ductal dilatation. Pancreas: Unremarkable. No mass or inflammation. Spleen: Unremarkable. Normal in size. No masses. Adrenal glands: Unremarkable. No nodules. Kidneys: Multiple bilateral parapelvic cysts. No hydronephrosis or hydroureter. No renal or ureteral stones identified. GI tract: The large bowel is nondilated. Air-fluid levels in the large bowel. There is mild enhancement and pericolonic fat stranding especially at the distal transverse colon, splenic flexure (2/63). Distally, there is minimal fluid within the large bowel loops in the sigmoid colon and rectum with predominantly solid fecal material without significant distension. No bowel obstruction. Appendix is within normal limits. Moderate hiatal hernia. Vasculature: Abdominal aorta is normal in caliber. Mesenteric arteries are patent. Lymph nodes: No lymphadenopathy. Peritoneum/Abdominal Wall: Trace free fluid in the pelvis and adjacent to the spleen. No sign of mass or infiltration. No free air or significant free fluid. Pelvis: Unremarkable. Bones: Unremarkable for age. IMPRESSION: Fluid filled loops of large bowel with mild wall thickening and enhancement with pericolonic fat stranding concerning for colitis. No bowel obstruction. Status post cholecystectomy. Please note that all CT scans at this facility use dose modulation, iterative reconstruction, and/or weight-based dosing when appropriate to reduce radiation dose to as low as reasonably achievable. Dictated by Yamil Mayer MD @ 12/25/2022 8:18:11 PM (Electronic Signature) Critical Care Time Critical Care Time Critical Care Time: No Discharge Plan Discharge Clinical Impression: Colitis, Nausea & vomiting, Hypokalemia Patient Disposition: Admitted As Observation
--- NOTE | 2022-12-25 18:54 | CRLHL7_ITS ---
For Patients: As a result of the Century Cures Act, medical imaging exams and procedure reports are released immediately into your electronic medical record. You may view this report before your referring provider. If you have questions, please contact your health care provider. Indication: Nausea, vomiting and constipation Technique: None Comparison: Upright and supine views the abdomen were acquired Findings: There is no free air. There is distention of bowel with air-fluid levels. This appears to be primarily colon. This raises the possibility a colonic obstruction. Consider a CT. Impression: Abnormally dilated bowel with air-fluid levels. This is a colon and could represent an ileus or low colonic obstruction. No free air. Consider a CT Dictated by Santy Jorge MD @ 12/25/2022 7:53:29 PM (Electronically Signed)
--- NOTE | 2022-12-25 19:11 | CRLHL7_ITS ---
For Patients: As a result of the Century Cures Act, medical imaging exams and procedure reports are released immediately into your electronic medical record. You may view this report before your referring provider. If you have questions, please contact your health care provider. INDICATION: abnormal abdomen xray, nausea, vomiting, no stool output, abdominal pain. TECHNIQUE: CT abdomen and pelvis acquired with 94 cc Isovue 370 IV contrast. COMPARISON: None. FINDINGS: Lower chest: Mild bibasilar atelectasis. Liver: Unremarkable. Normal in size and attenuation. No suspicious masses. Gallbladder and bile ducts: Status postcholecystectomy. No intra or extrahepatic biliary ductal dilatation. Pancreas: Unremarkable. No mass or inflammation. Spleen: Unremarkable. Normal in size. No masses. Adrenal glands: Unremarkable. No nodules. Kidneys: Multiple bilateral parapelvic cysts. No hydronephrosis or hydroureter. No renal or ureteral stones identified. GI tract: The large bowel is nondilated. Air-fluid levels in the large bowel. There is mild enhancement and pericolonic fat stranding especially at the distal transverse colon, splenic flexure (2/63). Distally, there is minimal fluid within the large bowel loops in the sigmoid colon and rectum with predominantly solid fecal material without significant distension. No bowel obstruction. Appendix is within normal limits. Moderate hiatal hernia. Vasculature: Abdominal aorta is normal in caliber. Mesenteric arteries are patent. Lymph nodes: No lymphadenopathy. Peritoneum/Abdominal Wall: Trace free fluid in the pelvis and adjacent to the spleen. No sign of mass or infiltration. No free air or significant free fluid. Pelvis: Unremarkable. Bones: Unremarkable for age. IMPRESSION: Fluid filled loops of large bowel with mild wall thickening and enhancement with pericolonic fat stranding concerning for colitis. No bowel obstruction. Status post cholecystectomy. Please note that all CT scans at this facility use dose modulation, iterative reconstruction, and/or weight-based dosing when appropriate to reduce radiation dose to as low as reasonably achievable. Dictated by Yamil Mayer MD @ 12/25/2022 8:18:11 PM (Electronically Signed)
[2022-12-25 19:37] LABS: Hematocrit 35.3 % (33.0-51.0); Hemoglobin* 11.5 gm/dL (12.0-16.0); Immature Granulocytes Pct Auto 0.3 %; Lymphocytes Percent Auto 6.6 % (20-44); Mean Corpuscular HGB Conc 33 gm/dL (32-36); Mean Corpuscular Hemoglobin 29 pg (26-34); Mean Corpuscular Volume 89 fL (80-100); Monocytes Percent Auto 8.2 % (0.0-11.0); Neutrophils Percent Auto 84.9 % (42.0-72.0); Platelet Count* 350 K/uL (140-440); RDW Coefficient of Variation % 14.4 % (11.5-15.5); Red Blood Count 3.96 m/uL (4.00-5.20); White Blood Count* 22.17 K/uL (4.50-11.00)
[2022-12-25 19:39] LABS: Slide Review Reflex No
[2022-12-25 19:50] LABS: Chloride* 94 mmol/L (96-114); Sodium* 133 mmol/L (135-149)
[2022-12-25 19:53] LABS: Creatinine* 0.6 mg/dL (0.5-1.5); Est. Creatinine Clearance* 49.08; Estimated Glomerular Filt Rate 100 ml/min
[2022-12-25 19:54] LABS: Anion Gap 10 mEq/L (7-15); Blood Urea Nitrogen* 20 mg/dL (7-30); Calcium* 8.8 mg/dL (8.4-10.6); Carbon Dioxide* 29 mmol/L (20-32); Glucose* 139 mg/dL (60-115)
[2022-12-25 19:57] LABS: Potassium* 2.9 mmol/L (3.6-5.1)
[2022-12-25] MEDS: POTASSIUM CHLORIDE 10 MEQ/100 ML PIGGYBACK 100 MEQ IVPB ×3 (20:30→22:37)
[2022-12-25] MEDS: 0.9 % SODIUM CH + KCL 20 mEq/L 1,000 ML 100 ML IV (20:30)
[2022-12-25 21:22] LABS: C Reactive Protein* 38.1 mg/dL (0.5-1.0)
[2022-12-25 21:30] VITALS: BP 134/72; PULSE 93; RESP 18; TEMP 37.6; O2SAT 95
[2022-12-25] MEDS: KETOROLAC 30 MG/ML inj 15 MG IVP (22:35)
[2022-12-25] MEDS: bisacodyL 10 MG SUPP.RECT PR (22:35)
[2022-12-25] MEDS: METOPROLOL TARTRATE 1 MG/ML inj 5 MG IVP (22:37)
[2022-12-25] MEDS: 0.9 % SODIUM CH + KCL 20 mEq/L 1,000 ML 350 ML IV (22:43)
--- NOTE | 2022-12-25 23:02 | PC.NURSE ---
Patient arrived to the floor around 2100. Recently had her Left knee replaced.. comes in with abdominal discomfort reports it to me as achy and sometimes has ripples of pain come through.. reported her pain in her lower extremities/back as well at 10/24 IV ketorolac was given. Potassium replacement is running through her IV in her L hand... on the 3rd bag of 10 meq. Bolus of 20meq in Normal saline is running @ 350 an hour. Bladder scanned for 216cc voided 2x of 150. Suppository given. L knee dressing is CDI non pitting edema. SBA with RW. NPO diet in place per orders. Patient would like [place] to help her sleep tonight. Calls appropriately.. call light within reach
[2022-12-25 23:05] LABS: Lactate* 1.3 mmol/L (0.5-1.9)
[2022-12-25 23:21] LABS: Chloride* 97 mmol/L (96-114); Potassium* 3.2 mmol/L (3.6-5.1); Sodium* 133 mmol/L (135-149)
[2022-12-25 23:24] LABS: Anion Gap 8 mEq/L (7-15); Blood Urea Nitrogen* 17 mg/dL (7-30); Carbon Dioxide* 28 mmol/L (20-32); Creatinine* 0.5 mg/dL (0.5-1.5); Est. Creatinine Clearance* 49.08; Estimated Glomerular Filt Rate 105 ml/min; Glucose* 126 mg/dL (60-115)
[2022-12-25 23:25] LABS: Calcium* 8.2 mg/dL (8.4-10.6); Magnesium* 1.7 mg/dL (1.5-2.6)
[2022-12-25] MEDS: MELATONIN 3 MG TABLET PO (23:28)
[2022-12-25 23:40] VITALS: BP 138/77; PULSE 86; PULSE 94; RESP 16; TEMP 36.9; O2SAT 94
--- NOTE | 2022-12-26 00:25 | P.IMHP_ITS ---
Hospitalist- H&P: HPI History of Present Illness Date Seen: 12/25/22 Chief complaint: constipation post OP Narrative: Graciela Morrissey is a 62 year old female status post left knee arthroplasty day to presenting with 1 day history of abdominal pain nausea vomiting. Patient underwent outpatient left knee arthroplasty 2 days ago on December 23 2022. Procedure was uncomplicated she was discharged home the same day. She did fairly well until the 1st day postop in the afternoon when she developed generalized abdominal pain and had a couple emesis. Nonbloody emesis. She reports she has not been passing gas and has not had a bowel movement since the day before surgery. She is taking senna and MiraLax without results. After surgery for the 1st day she was able to take in p.o. food and fluid without difficulty. Her last meal was noon on 12/24/2022. After that she had her emesis. She has been trying to to take in fluids since that time but otherwise eating very little. She has no history of bowel problems. She has had a cholecystectomy. She reports her in normal bowel function is irregular bowel movement every day without straining. She also has had meniscus surgery on her knee and breast reduction surgery. She notes after breast reduction surgery she went 4 days wit hout a bowel movement and that was a problem for her. She was taking oxycodone for pain until she started feeling sick and then stop taking it. She has had no oxycodone today. She also takes trospium, which has anticholinergic affects on her bladder and her bowels. Review of Systems Narrative: Patient reports her knee is doing well after surgery. Pain is manageable. She has no other concerns except her abdominal pain [facility] Medical History Normal nuclear stress test Obesity (BMI 30.0-34.9) ?E66.9 - Obesity, unspecified (ICD-10) History of hemorrhoids ?Z87.19 - Personal history of other diseases of the digestive system (ICD-10) Urge incontinence of urine ?N39.41 - Urge incontinence (ICD-10) Prediabetes (2017) ?R73.03 - Prediabetes (ICD-10) Mixed stress and urge urinary incontinence ?N39.46 - Mixed incontinence (ICD-10) Hypertension ?I10 - Essential (primary) hypertension (ICD-10) Dyslipidemia ?E78.5 - Hyperlipidemia, unspecified (ICD-10) Chronic gastroesophageal reflux disease ?K21.9 - Gastro-esophageal reflux disease without esophagitis (ICD-10) Surgical History History of arthroscopy of left knee (05/09/05) ?Z98.890 - Other specified postprocedural states (ICD-10) History of arthroscopy of right knee (10/17/10) ?Z98.890 - Other specified postprocedural states (ICD-10) History of surgery (01/27/19) ?Z98.890 - Other specified postprocedural states (ICD-10) History of carpal tunnel surgery of right wrist (08/22/21) ?Z98.890 - Other specified postprocedural states (ICD-10) Status post laparoscopic cholecystectomy (04/24/21) ?Z90.49 - Acquired absence of other specified parts of digestive tract (ICD- 10) History of colonoscopy (2014) ?Z98.890 - Other specified postprocedural states (ICD-10) History of bladder surgery (02/2019) ?Z98.890 - Other specified postprocedural states (ICD-10) History of bilateral breast reduction surgery (2010) ?Z98.890 - Other specified postprocedural states (ICD-10) Family History Sister Breast cancer Myocardial infarction Type 2 diabetes mellitus Father Myocardial infarction, Onset Age: 69 Mother Myocardial infarction, Onset Age: 70 Type 2 diabetes mellitus Brother Myocardial infarction, Onset Age: 67 Type 2 diabetes mellitus Other High blood pressure Osteoarthritis Social History Narrative: Does not exercise on regular basis due to knee pain, 2 cats , secretery firm, 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 drinker,5/week What is your current living situation?: I presently have a place to live Problems where you live: no known problems Problems where you live details: none In the past 12 months, utilities in danger of being shut off: no In past 12 months, lack of transportation kept you from medical appts, meetings, work, or getting things needed for daily living: no In the past 12 mos, have been you worried that your food would run out before you had money to buy more?: never true In the past 12 mos, the food you bought just didn't last and you didn't have money to buy more?: never true Highest level of school completed/degree received: high school graduate Smoking Status: Never smoker Do you use any of these nicotine containing products: None Second hand tobacco smoke exposure: No How often do you have a drink containing alcohol: 2-4 times a month Alcohol type: beer and wine How many standard drinks containing alcohol do you have on a typical day: 1 or 2 How often do you have six or more drinks on one occasion: Never AUDIT-C Alcohol total score: 2 Non-prescribed substance use: denies use Caffeine: No How often does anyone, including family, friends and others, physically hurt you : never How often does anyone, including family, friends and others, insult or talk down to you: never How often does anyone, including family, friends and others, threaten you with harm: never How often does anyone, including family, friends and others, scream or curse at you: never Little interest or pleasure in doing things: not at all Feeling down, depressed, or hopeless: not at all Are you using contraception or practicing any form of control: No service: No Meds Home Medications and Allergies Home Medications Medication Instructions Recorded Confirmed Type aspirin 81 mg tablet,delayed 81 mg PO QDAY 10/22/21 12/25/22 History release cholecalciferol (vitamin D3) 25 1,000 unit PO DAILY 10/22/21 12/25/22 History mcg (1,000 unit) capsule multivitamin 1 tab PO QDAY 10/22/21 12/25/22 History diclofenac sodium 1 % topical gel 2 g topical QID PRN 12/05/22 12/25/22 History melatonin 10 mg tablet 10 mg PO .Bedtime PRN 12/05/22 12/25/22 History bisacodyl 1 tab PO BID 12/25/22 12/25/22 History ibuprofen 200 mg tablet (Advil) 400 mg PO Q8H 12/25/22 12/25/22 History Allergies Allergy/AdvReac Type Severity Reaction Status Date / Time No Known Allergies Allergy Verified 12/25/22 19:40 Exam Narrative: Exam Narrative: She is alert and appears in no distress. She gives her own history. Eyes normal. Oropharynx normal with dry mucous membranes. Neck is supple without mass or adenopathy. Respirations are clear to auscultation. Cardiovascular: S1, S2, regular rate and rhythm. No murmur gallop or rub. Abdomen: Bowel sounds absent. Abdomen is distended with mild to moderate diffuse tenderness in the upper abdomen. No peritonitis. Only mild lower abdominal tenderness. No palpable mass. External genitalia normal. Left knee is examined. The incision is clean and dry without significant erythema or drainage. Mild to moderate bruising around the knee consistent with her postoperative status. Const: Vital Signs, click to edit/add: Vital Signs - 24 hr 12/25/22 17:01 12/25/22 18:44 12/25/22 21:30 Temperature 98.1 F Pulse Rate [Left P ulse Oximeter] Pulse Rate [Pulse Oximeter] 97 91 Respiratory Rate 16 18 Blood Pressure [Ri ght Arm] Blood Pressure [Ri ght Upper Arm] 121/81 142/83 H Pulse Oximetry 97 94 95 Oxygen Delivery Me thod Room Air Room Air 12/25/22 21:30 Temperature 99.7 F H Pulse Rate [Left P ulse Oximeter] 93 Pulse Rate [Pulse Oximeter] Respiratory Rate 18 Blood Pressure [Ri ght Arm] 134/72 Blood Pressure [Ri ght Upper Arm] Pulse Oximetry 95 Oxygen Delivery Me thod Room Air Documenting provider has reviewed patient's vital signs: yes Hospitalist - H&P: Result Labs Labs: Short CBC 12/25/22 Range/Units 19:24 WBC 22.17 H (4.50-11.00) K/uL Hgb 11.5 L (12.0-16.0) gm/dL Hct 35.3 (33.0-51.0) % Plt Count 350 (140-440) K/uL BMP 12/25/22 12/25/22 19:24 23:00 Sodium 133 L 133 L Potassium 2.9 L* 3.2 L Chloride 94 L 97 Carbon Dioxide 29 28 BUN 20 17 Creatinine 0.6 0.5 Glucose 139 H 126 H Calcium 8.8 8.2 L Urine 12/25/22 Range/Units 17:10 Urine Color Dark yellow (Yellow) Urine Appearance Clear (Clear) Urine pH 6.0 (5.0-8.5) Ur Specific [place] 1.025 (1.000-1.030) Urine Protein 1+ A (Negative) Urine Glucose (UA) Negative (Negative) Imaging CT scan - abdomen: Radiologist's impression: INDICATION: abnormal abdomen xray, nausea, vomiting, no stool output, abdominal pain. TECHNIQUE: CT abdomen and pelvis acquired with 94 cc Isovue 370 IV contrast. COMPARISON: None. FINDINGS: Lower chest: Mild bibasilar atelectasis. Liver: Unremarkable. Normal in size and attenuation. No suspicious masses. Gallbladder and bile ducts: Status postcholecystectomy. No intra or extrahepatic biliary ductal dilatation. Pancreas: Unremarkable. No mass or inflammation. Spleen: Unremarkable. Normal in size. No masses. Adrenal glands: Unremarkable. No nodules. Kidneys: Multiple bilateral parapelvic cysts. No hydronephrosis or hydroureter. No renal or ureteral stones identified. GI tract: The large bowel is nondilated. Air-fluid levels in the large bowel. There is mild enhancement and pericolonic fat stranding especially at the distal transverse colon, splenic flexure (2/63). Distally, there is minimal fluid within the large bowel loops in the sigmoid colon and rectum with predominantly solid fecal material without significant distension. No bowel obstruction. Appendix is within normal limits. Moderate hiatal hernia. Vasculature: Abdominal aorta is normal in caliber. Mesenteric arteries are patent. Lymph nodes: No lymphadenopathy. Peritoneum/Abdominal Wall: Trace free fluid in the pelvis and adjacent to the spleen. No sign of mass or infiltration. No free air or significant free fluid. Pelvis: Unremarkable. Bones: Unremarkable for age. IMPRESSION: Fluid filled loops of large bowel with mild wall thickening and enhancement with pericolonic fat stranding concerning for colitis. No bowel obstruction. Status post cholecystectomy. Assessment and Plan Assessment and plan (1) Paralytic ileus of large intestine: Problem comment: Appears to have a ileus of the large intestines following knee surgery. Will provide IV fluids, correct electrolytes, stop opioids and anticholinergics. Consult surgery Status: Acute (2) Colitis: Problem comment: Radiologist noted some fat stranding around the colon. Uncertain significance. Monitor for complications of an infectious process. Status: Acute (3) Hypokalemia: Problem comment: Correct with IV potassium Status: Acute (4) Mixed stress and urge urinary incontinence: Problem comment: stop Trospium Status: Chronic Plan Admit to the hospital for IV fluids, IV potassium, monitoring of bowel function. Conservative management to start with. Start antibiotics if evidence of infection. Total time spent today is 75 minutes, 50 minutes in coordination of care and discussing with patient and and surgery ongoing management of ileus
[2022-12-26] MEDS: 0.9 % SODIUM CH + KCL 20 mEq/L 1,000 ML 125 ML IV (02:13)
[2022-12-26 03:30] VITALS: BP 129/74; PULSE 96; RESP 16; TEMP 38; O2SAT 93
[2022-12-26] MEDS: METOPROLOL TARTRATE 1 MG/ML inj 5 MG IVP ×2 (04:42→11:31)
[2022-12-26] MEDS: KETOROLAC 30 MG/ML inj 15 MG IVP ×2 (04:56→11:30)
[2022-12-26 04:57] VITALS: TEMP 38
[2022-12-26] MEDS: ACETAMINOPHEN 325 MG TABLET 650 MG PO ×2 (04:57→21:50)
[2022-12-26 06:30] LABS: Basophils Percent Auto 0.1 % (0.0-3.0); Eosinophils Percent Auto 0.1 % (0.0-7.0); Lymphocytes Percent Auto 6.6 % (20-44); Mean Corpuscular HGB Conc 32 gm/dL (32-36); Mean Corpuscular Hemoglobin 29 pg (26-34); Mean Corpuscular Volume 90 fL (80-100); Monocytes Percent Auto 8.2 % (0.0-11.0); Platelet Count* 265 K/uL (140-440); RDW Coefficient of Variation % 14.4 % (11.5-15.5); Red Blood Count 3.11 m/uL (4.00-5.20); White Blood Count* 15.71 K/uL (4.50-11.00)
[2022-12-26 06:36] LABS: Slide Review Reflex No
--- NOTE | 2022-12-26 06:48 | PC.NURSE ---
Pt alert and oriented x3. Afebrile. Pt reports 7/10 pain in abdomen, pain managed with scheduled medications. Pt denies chest pain, SOB, and N/V. Pt?s left knee dressing is CDI. Pt is up SBA with walker gait belt. Pt is voiding and slept intermittently throughout night. ?
[2022-12-26 07:02] LABS: Chloride* 102 mmol/L (96-114); Potassium* 3.4 mmol/L (3.6-5.1); Sodium* 134 mmol/L (135-149)
[2022-12-26 07:05] LABS: Creatinine* 0.6 mg/dL (0.5-1.5); Est. Creatinine Clearance* 49.08; Estimated Glomerular Filt Rate 100 ml/min
[2022-12-26 07:06] LABS: Anion Gap 6 mEq/L (7-15); Blood Urea Nitrogen* 17 mg/dL (7-30); Calcium* 7.8 mg/dL (8.4-10.6); Carbon Dioxide* 26 mmol/L (20-32); Glucose* 117 mg/dL (60-115)
[2022-12-26 07:43] LABS: C Reactive Protein* 35.6 mg/dL (0.5-1.0)
[2022-12-26 08:15] VITALS: BP 115/74; PULSE 83; RESP 18; TEMP 37; O2SAT 94
[2022-12-26 09:44] LABS: CDIFFEPI 027 PRESUMPTIVE NEGATIVE (Negative)
[2022-12-26 09:50] LABS: C.Difficile POSITIVE (Negative)
[2022-12-26] MEDS: bisacodyL 10 MG SUPP.RECT PR (10:24)
[2022-12-26] MEDS: VANCOMYCIN 125 MG CAPSULE PO ×4 (10:44→21:49)
[2022-12-26 11:00] VITALS: BP 117/72; PULSE 76; RESP 18; TEMP 37; O2SAT 95
--- NOTE | 2022-12-26 11:39 | P.GSCN_ITS ---
History of Present Illness Consult details Date Seen: 12/26/22 Consult date: 12/26/22 Narrative: Patient is a 62-year-old female who underwent a left total knee on Friday12/24/2022. She was discharged same day. At home she complained of increased abdominal pain and distension. She last had a bowel movement on Friday before the procedure. Postoperatively she was taking oxycodone for pain control. She had also been taking two senna stool softeners per day. On the day of presentation to the emergency department she had 1 dose of MiraLax. She describes the pain as a cramping sensation of her lower abdomen that would come and go. She did have some nausea and 1 episode of emesis yesterday. She does have a history of postop constipation, but reports that it has never been this bad. On CT imaging evidence of liquid stool within the right side of the colon. Sigmoid and rectum are decompressed. Some mild thickening of the colonic wall concerning for possible colitis. CBC demonstrated a leukocytosis of 22. She was admitted to the hospitalist service. This morning she states that she has had several liquidy stools. A stool sample was taken and positive for C diff colitis. Review of Systems 2 Status of ROS: Reports: 6 or more systems reviewed and unremarkable except as noted in History and below [facility] Medical History Normal nuclear stress test Obesity (BMI 30.0-34.9) ?E66.9 - Obesity, unspecified (ICD-10) History of hemorrhoids ?Z87.19 - Personal history of other diseases of the digestive system (ICD-10) Urge incontinence of urine ?N39.41 - Urge incontinence (ICD-10) Prediabetes (2017) ?R73.03 - Prediabetes (ICD-10) Mixed stress and urge urinary incontinence ?N39.46 - Mixed incontinence (ICD-10) Hypertension ?I10 - Essential (primary) hypertension (ICD-10) Dyslipidemia ?E78.5 - Hyperlipidemia, unspecified (ICD-10) Chronic gastroesophageal reflux disease ?K21.9 - Gastro-esophageal reflux disease without esophagitis (ICD-10) Surgical History History of arthroscopy of left knee (05/09/05) ?Z98.890 - Other specified postprocedural states (ICD-10) History of arthroscopy of right knee (10/17/10) ?Z98.890 - Other specified postprocedural states (ICD-10) History of surgery (01/27/19) ?Z98.890 - Other specified postprocedural states (ICD-10) History of carpal tunnel surgery of right wrist (08/22/21) ?Z98.890 - Other specified postprocedural states (ICD-10) Status post laparoscopic cholecystectomy (04/24/21) ?Z90.49 - Acquired absence of other specified parts of digestive tract (ICD- 10) History of colonoscopy (2014) ?Z98.890 - Other specified postprocedural states (ICD-10) History of bladder surgery (02/2019) ?Z98.890 - Other specified postprocedural states (ICD-10) History of bilateral breast reduction surgery (2010) ?Z98.890 - Other specified postprocedural states (ICD-10) Family History Sister Breast cancer Myocardial infarction Type 2 diabetes mellitus Father Myocardial infarction, Onset Age: 69 Mother Myocardial infarction, Onset Age: 70 Type 2 diabetes mellitus Brother Myocardial infarction, Onset Age: 67 Type 2 diabetes mellitus Other High blood pressure Osteoarthritis Social History Narrative: Does not exercise on regular basis due to knee pain, 2 cats , secretery firm, 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 drinker,5/week What is your current living situation?: I presently have a place to live Problems where you live: no known problems Problems where you live details: none In the past 12 months, utilities in danger of being shut off: no In past 12 months, lack of transportation kept you from medical appts, meetings, work, or getting things needed for daily living: no In the past 12 mos, have been you worried that your food would run out before you had money to buy more?: never true In the past 12 mos, the food you bought just didn't last and you didn't have money to buy more?: never true Highest level of school completed/degree received: high school graduate Smoking Status: Never smoker Do you use any of these nicotine containing products: None Second hand tobacco smoke exposure: No How often do you have a drink containing alcohol: 2-4 times a month Alcohol type: beer and wine How many standard drinks containing alcohol do you have on a typical day: 1 or 2 How often do you have six or more drinks on one occasion: Never AUDIT-C Alcohol total score: 2 Non-prescribed substance use: denies use Caffeine: No How often does anyone, including family, friends and others, physically hurt you : never How often does anyone, including family, friends and others, insult or talk down to you: never How often does anyone, including family, friends and others, threaten you with harm: never How often does anyone, including family, friends and others, scream or curse at you: never Little interest or pleasure in doing things: not at all Feeling down, depressed, or hopeless: not at all Are you using contraception or practicing any form of control: No service: No Meds Home Medications and Allergies Home Medications Medication Instructions Recorded Confirmed Type aspirin 81 mg tablet,delayed 81 mg PO QDAY 10/22/21 12/25/22 History release multivitamin 1 tab PO QDAY 10/22/21 12/25/22 History diclofenac sodium 1 % topical gel 2 g topical QID PRN 12/05/22 12/26/22 History melatonin 10 mg tablet 10 mg PO HS PRN 12/05/22 12/26/22 History bisacodyl 1 tab PO BID 12/25/22 12/25/22 History ibuprofen 200 mg tablet (Advil) 400 mg PO Q8H 12/25/22 12/25/22 History cholecalciferol (vitamin D3) 25 25 mcg PO DAILY 12/26/22 12/26/22 History mcg (1,000 unit) tablet rosuvastatin 5 mg tablet 5 mg PO HS 12/26/22 12/26/22 History Allergies Allergy/AdvReac Type Severity Reaction Status Date / Time No Known Allergies Allergy Verified 12/25/22 19:40 Exam Narrative: Exam Narrative: General: Alert and oriented, no acute distress. Nontoxic in appearance Respiratory: Equal breath rise, maintained on room air CV: Well perfused Abdomen: Moderate distention, diffuse lower abdominal tenderness to palpation, tympanic, no guarding or rebound. Const: Vital Signs, click to edit/add: Vital Signs - 24 hr 12/25/22 17:01 12/25/22 18:44 12/25/22 21:30 Temperature 98.1 F Pulse Rate [Left P ulse Oximeter] Pulse Rate [Pulse Oximeter] 97 91 Respiratory Rate 16 18 Blood Pressure [Ri ght Arm] Blood Pressure [Ri ght Upper Arm] 121/81 142/83 H Pulse Oximetry 97 94 95 Oxygen Delivery Me thod Room Air Room Air 12/25/22 21:30 12/25/22 23:40 12/25/22 23:40 Temperature 99.7 F H 98.5 F Pulse Rate [Left P ulse Oximeter] 93 86 94 Pulse Rate [Pulse Oximeter] Respiratory Rate 18 16 16 Blood Pressure [Ri ght Arm] 134/72 138/77 Blood Pressure [Ri ght Upper Arm] Pulse Oximetry 95 94 Oxygen Delivery Me thod Room Air Room Air 12/26/22 03:30 12/26/22 04:57 Temperature 100.4 F H 100.4 F H Pulse Rate [Left P ulse Oximeter] 96 Pulse Rate [Pulse Oximeter] Respiratory Rate 16 Blood Pressure [Ri ght Arm] 129/74 Blood Pressure [Ri ght Upper Arm] Pulse Oximetry 93 Oxygen Delivery Me thod Room Air Results Labs Labs: Abnormal lab results 12/25/22 12/25/22 12/25/22 Range/Units 17:10 19:24 23:00 WBC 22.17 H (4.50-11.00) K/uL RBC 3.96 L (4.00-5.20) m/uL Hgb 11.5 L (12.0-16.0) gm/dL Hct (33.0-51.0) % Neut % (Auto) 84.9 H (42.0-72.0) % Lymph % (Auto) 6.6 L (20-44) % Neut # (Auto) 18.80 H (1.7-7.0) K/uL [place] # (Auto) 1.80 H (0.00-0.90) K/UL Sodium 133 L 133 L (135-149) mmol/L Potassium 2.9 L* 3.2 L (3.6-5.1) mmol/L Chloride 94 L (96-114) mmol/L Anion Gap (7-15) mEq/L Glucose 139 H 126 H (60-115) mg/dL Calcium 8.2 L (8.4-10.6) mg/dL C-Reactive Protein 38.1 H (0.5-1.0) mg/dL Urine Protein 1+ A (Negative) Urine Blood Trace-intact A (Negative) Stl C. diff Tox B Gene (Negative) 12/26/22 12/26/22 Range/Units 05:42 08:43 WBC 15.71 H (4.50-11.00) K/uL RBC 3.11 L (4.00-5.20) m/uL Hgb 9.0 L (12.0-16.0) gm/dL Hct 28.0 L (33.0-51.0) % Neut % (Auto) 84.0 H (42.0-72.0) % Lymph % (Auto) 6.6 L (20-44) % Neut # (Auto) 13.20 H (1.7-7.0) K/uL [place] # (Auto) 1.30 H (0.00-0.90) K/UL Sodium 134 L (135-149) mmol/L Potassium 3.4 L (3.6-5.1) mmol/L Chloride (96-114) mmol/L Anion Gap 6 L (7-15) mEq/L Glucose 117 H (60-115) mg/dL Calcium 7.8 L (8.4-10.6) mg/dL C-Reactive Protein 35.6 H (0.5-1.0) mg/dL Urine Protein (Negative) Urine Blood (Negative) Stl C. diff Tox B Gene POSITIVE A* (Negative) Diabetes panel 12/25/22 12/25/22 12/26/22 Range/Units 19:24 23:00 05:42 Sodium 133 L 133 L 134 L (135-149) mmol/L Potassium 2.9 L* 3.2 L 3.4 L (3.6-5.1) mmol/L Chloride 94 L 97 102 (96-114) mmol/L Carbon Dioxide 29 28 26 (20-32) mmol/L BUN 20 17 17 (7-30) mg/dL Creatinine 0.6 0.5 0.6 (0.5-1.5) mg/dL Glucose 139 H 126 H 117 H (60-115) mg/dL Calcium 8.8 8.2 L 7.8 L (8.4-10.6) mg/dL Calcium panel 12/25/22 12/25/22 12/26/22 Range/Units 19:24 23:00 05:42 Calcium 8.8 8.2 L 7.8 L (8.4-10.6) mg/dL Pituitary panel 12/25/22 12/25/22 12/26/22 Range/Units 19:24 23:00 05:42 Sodium 133 L 133 L 134 L (135-149) mmol/L Potassium 2.9 L* 3.2 L 3.4 L (3.6-5.1) mmol/L Chloride 94 L 97 102 (96-114) mmol/L Carbon Dioxide 29 28 26 (20-32) mmol/L BUN 20 17 17 (7-30) mg/dL Creatinine 0.6 0.5 0.6 (0.5-1.5) mg/dL Glucose 139 H 126 H 117 H (60-115) mg/dL Calcium 8.8 8.2 L 7.8 L (8.4-10.6) mg/dL Adrenal panel 12/25/22 12/25/22 12/26/22 Range/Units 19:24 23:00 05:42 Sodium 133 L 133 L 134 L (135-149) mmol/L Potassium 2.9 L* 3.2 L 3.4 L (3.6-5.1) mmol/L Chloride 94 L 97 102 (96-114) mmol/L Carbon Dioxide 29 28 26 (20-32) mmol/L BUN 20 17 17 (7-30) mg/dL Creatinine 0.6 0.5 0.6 (0.5-1.5) mg/dL Glucose 139 H 126 H 117 H (60-115) mg/dL Calcium 8.8 8.2 L 7.8 L (8.4-10.6) mg/dL All other labs normal. Assessment and Plan Assessment and plan (1) C. difficile colitis: Status: Acute Plan Patient is a 62-year-old female with postoperative C diff colitis. Vital signs stable, mild fever this morning (100.4). Leukocytosis trending down (22--15). She was started on Zosyn, antibiotics have been changed to oral vancomycin with positive C diff stool toxin. -okay for clear liquids -discontinue bowel regiment of enema and suppositories -encourage ambulation -trend fever and CBC -will continue to follow, please call with any acute clinical changes or questions.
--- NOTE | 2022-12-26 13:00 | REH.PT ---
Pt is ind with HEP post L TKA POD#3. Left knee AROM 0-90 degrees. Ind with ambulation using her 2ww. Encouraged to continue with HEP 3x/day. Skilled PT not warranted at this time. Plans to continue with OP PT next week.
[2022-12-26] MEDS: atenoloL 25 MG TABLET PO (14:02)
[2022-12-26] MEDS: MULTIVITAMIN/MINERALS 1 TABLET 1 TAB PO (14:03)
[2022-12-26] MEDS: OMEPRAZOLE 20 MG CAPSULE DR PO (14:03)
[2022-12-26 15:00] VITALS: BP 125/75; PULSE 78; RESP 18; TEMP 37.7; O2SAT 96
--- NOTE | 2022-12-26 15:35 | PC.NURSE ---
Please see eMar for meds provided. Stool sample collected and pt is positive for c-diff. Initiated contact precautions. Eval by Dr. Alexander and PT for recent knee surgery, care notes provided to pt about c-diff. Pain initially 5 out of 10, urine is tea colored and concentrated. Pain is now 4 out of 10. Tolerating CL diet after discussion this am with Dr. Bo. IV to SL. Continue plan of care, report to Esther rBadley RN.
[2022-12-26] MEDS: IBUPROFEN 400 MG TABLET PO (16:23)
--- NOTE | 2022-12-26 17:44 | PM.IMPN1 ---
Progress Note: A&P Assessment and plan (1) C. difficile colitis: Problem details: C diff colitis is likely the cause for her abdominal pain and ileus. Treat with oral vancomycin. Status: Acute (2) Paralytic ileus of large intestine: Problem details: Appears to have a ileus of the large intestines following knee surgery. Likely due to C diff colitis. Avoid opiates and anticholinergics. Advance diet to clear liquids. Status: Acute (3) Hypokalemia: Problem details: Supplementing potassium. Status: Acute (4) Mixed stress and urge urinary incontinence: Problem details: stop Trospium until clinically better Status: Chronic Plan Continue in hospital for treatment of colitis and ileus. Monitor for complications. Anticipate discharge to home in the next 1-2 days. Time Spent With Patient Total time spent: Total time spent today is 40 minutes, 30 minutes in coordination of care and discussing with patient and surgery and other providers management of C diff colitis Subjective Date Seen: 12/26/22 Interval history: 62-year-old female admitted to the hospital for abdominal pain and vomiting status post knee arthroplasty 2 days prior to admission. She underwent same-day surgery for knee replacement without complications. She was discharged home on the same day. For 1 day after surgery she was able to eat a normal diet but then began vomiting and developing abdominal pain and distension. Abdominal pain was diffuse and constant. She has had little to eat or drink prior to admission. Evaluation on admission showed evidence of says fat stranding around her colon as well as a dilated colon. This was suspected to be an ileus but also possibly colitis. She has not had a bowel movement since prior to surgery but this morning had 2 loose stools that were foul smelling. She tested positive for C diff. She reports feeling better this morning after having a bowel movement. She had a low-grade fever this morning. No more nausea vomiting. Her knee pain is fairly well controlled with NSAIDs and acetaminophen. Exam Narrative: Exam Narrative: She is alert and appears in no obvious distress. Respirations are clear to auscultation. Cardiovascular: S1, S2, regular rate and rhythm. Abdomen: Bowel sounds are present but diminished. Abdomen exam notable for mild diffuse tenderness and upper abdominal tenderness is somewhat better than admission last night. Is relatively soft compared to last night. There is no focal mass. Extremities without edema. No rash. Const: Vital Signs, click to edit/add: Vital Signs - 24 hr 12/25/22 18:44 12/25/22 21:30 12/25/22 21:30 Temperature 99.7 F H Pulse Rate [Left P ulse Oximeter] 93 Pulse Rate [Pulse Oximeter] 91 Respiratory Rate 18 18 Blood Pressure [Ri ght Arm] 134/72 Blood Pressure [Ri ght Upper Arm] 142/83 H Pulse Oximetry 94 95 95 Oxygen Delivery Me thod Room Air Room Air 12/25/22 23:40 12/25/22 23:40 12/26/22 03:30 Temperature 98.5 F 100.4 F H Pulse Rate [Left P ulse Oximeter] 86 94 96 Pulse Rate [Pulse Oximeter] Respiratory Rate 16 16 16 Blood Pressure [Ri ght Arm] 138/77 129/74 Blood Pressure [Ri ght Upper Arm] Pulse Oximetry 94 93 Oxygen Delivery Me thod Room Air Room Air 12/26/22 04:57 12/26/22 08:15 12/26/22 11:00 Temperature 100.4 F H 98.6 F 98.6 F Pulse Rate [Left P ulse Oximeter] 83 76 Pulse Rate [Pulse Oximeter] Respiratory Rate 18 18 Blood Pressure [Ri ght Arm] 115/74 117/72 Blood Pressure [Ri ght Upper Arm] Pulse Oximetry 94 95 Oxygen Delivery Me thod Room Air Room Air 12/26/22 15:00 Temperature 99.9 F H Pulse Rate [Left P ulse Oximeter] 78 Pulse Rate [Pulse Oximeter] Respiratory Rate 18 Blood Pressure [Ri ght Arm] 125/75 Blood Pressure [Ri ght Upper Arm] Pulse Oximetry 96 Oxygen Delivery Me thod Room Air Documenting provider has reviewed patient's vital signs: yes Labs Labs: Laboratory Results - last 24 hr 12/25/22 12/25/22 12/25/22 19:24 23:00 23:00 WBC 22.17 H RBC 3.96 L Hgb 11.5 L Hct 35.3 MCV 89 MCH 29 MCHC 33 RDW Coeff of Ankur 14.4 Plt Count 350 Neut % (Auto) 84.9 H Lymph % (Auto) 6.6 L Gibson % (Auto) 8.2 Eos % (Auto) 0.0 Baso % (Auto) 0.0 Neut # (Auto) 18.80 H Lymph # (Auto) 1.50 Gibson # (Auto) 1.80 H Eos # (Auto) 0.00 Baso # (Auto) 0.00 Abs Immat Gran (auto) 0.10 Imm/Tot Granulo (auto) 0.3 Sodium 133 L 133 L Potassium 2.9 L* 3.2 L Chloride 94 L 97 Carbon Dioxide 29 28 Anion Gap 10 8 BUN 20 17 Creatinine 0.6 0.5 Estimated Creat Clear 49.08 49.08 Estimated GFR 100 105 Glucose 139 H 126 H Lactate 1.3 Calcium 8.8 8.2 L Magnesium 1.7 C-Reactive Protein 38.1 H Stl C. diff Tox B Gene Stl C. diff 027-NAP1-BI Lab Acknowledgement Test Added Test Added 12/26/22 12/26/22 05:42 08:43 WBC 15.71 H RBC 3.11 L Hgb 9.0 L Hct 28.0 L MCV 90 MCH 29 MCHC 32 RDW Coeff of Ankur 14.4 Plt Count 265 Neut % (Auto) 84.0 H Lymph % (Auto) 6.6 L Gibson % (Auto) 8.2 Eos % (Auto) 0.1 Baso % (Auto) 0.1 Neut # (Auto) 13.20 H Lymph # (Auto) 1.00 Gibson # (Auto) 1.30 H Eos # (Auto) 0.00 Baso # (Auto) 0.00 Abs Immat Gran (auto) 0.20 Imm/Tot Granulo (auto) 1.0 Sodium 134 L Potassium 3.4 L Chloride 102 Carbon Dioxide 26 Anion Gap 6 L BUN 17 Creatinine 0.6 Estimated Creat Clear 49.08 Estimated GFR 100 Glucose 117 H Lactate Calcium 7.8 L Magnesium C-Reactive Protein 35.6 H Stl C. diff Tox B Gene POSITIVE A* Stl C. diff 027-NAP1-BI PRESUMPTIVE NEGATIVE Lab Acknowledgement
[2022-12-26 19:00] VITALS: RESP 18; TEMP 37.3
[2022-12-26] MEDS: ROSUVASTATIN CALCIUM 10 MG TABLET 5 MG PO (21:49)
[2022-12-26] MEDS: MELATONIN 3 MG TABLET 9 MG PO (21:50)
[2022-12-26] MEDS: SODIUM CHLORIDE 0.9 % (FLUSH) 10 ML SYRINGE 5 ML IVF (21:50)
[2022-12-26] MEDS: ENOXAPARIN 40 MG/0.4 ML INJ SUBCUT (21:51)
[2022-12-27] VITALS (7 sets, daily range): BP systolic 127–151; BP diastolic 72–95; PULSE 70–85; RESP 16–18; TEMP 36.7–37.4; O2SAT 96–97
--- NOTE | 2022-12-27 06:44 | PC.NURSE ---
Shift note [id number]: Pt alert and oriented x3. Afebrile. Pt reports 2/10 pain in abdomen and knee, pain medication offered pt refused It feels fine when I am just lying here. Pt?s left knee dressing is CDI. Pt is up SBA with walker gait belt. Pt is voiding and slept throughout most of night. ?
[2022-12-27 06:57] LABS: Basophils Percent Auto 0.2 % (0.0-3.0); Eosinophils Percent Auto 1.5 % (0.0-7.0); Hematocrit 26.5 % (33.0-51.0); Hemoglobin* 8.4 gm/dL (12.0-16.0); Immature Granulocytes Pct Auto 0.2 %; Lymphocytes Percent Auto 7.3 % (20-44); Mean Corpuscular HGB Conc 32 gm/dL (32-36); Mean Corpuscular Hemoglobin 29 pg (26-34); Mean Corpuscular Volume 90 fL (80-100); Monocytes Percent Auto 7.3 % (0.0-11.0); Neutrophils Percent Auto 83.5 % (42.0-72.0); Platelet Count* 258 K/uL (140-440); RDW Coefficient of Variation % 14.3 % (11.5-15.5); Red Blood Count 2.93 m/uL (4.00-5.20)
[2022-12-27] MEDS: IBUPROFEN 400 MG TABLET PO (07:03)
[2022-12-27 07:04] LABS: Slide Review Reflex No
[2022-12-27 07:11] LABS: Chloride* 104 mmol/L (96-114); Potassium* 3.2 mmol/L (3.6-5.1); Sodium* 137 mmol/L (135-149)
[2022-12-27 07:13] LABS: Creatinine* 0.4 mg/dL (0.5-1.5); Est. Creatinine Clearance* 49.08; Estimated Glomerular Filt Rate 110 ml/min
[2022-12-27 07:14] LABS: Anion Gap 6 mEq/L (7-15); Blood Urea Nitrogen* 11 mg/dL (7-30); Calcium* 8.3 mg/dL (8.4-10.6); Carbon Dioxide* 27 mmol/L (20-32); Glucose* 93 mg/dL (60-115)
[2022-12-27 07:36] LABS: C Reactive Protein* 24.4 mg/dL (0.5-1.0)
[2022-12-27] MEDS: ACETAMINOPHEN 325 MG TABLET 650 MG PO ×3 (07:55→20:39)
[2022-12-27] MEDS: OMEPRAZOLE 20 MG CAPSULE DR PO (07:56)
[2022-12-27] MEDS: atenoloL 25 MG TABLET PO (07:57)
[2022-12-27] MEDS: MULTIVITAMIN/MINERALS 1 TABLET 1 TAB PO (07:57)
--- NOTE | 2022-12-27 09:37 | P.IMPN_ITS ---
Progress Note: A&P Assessment and plan (1) C. difficile colitis: Problem details: C diff colitis is likely the cause for her abdominal pain and ileus. Treat with oral vancomycin. Status: Acute (2) Paralytic ileus of large intestine: Problem details: Appears to have a ileus of the large intestines following knee surgery. Likely due to C diff colitis. Avoid opiates and anticholinergics. Advance diet to clear liquids. 12/27: advance to full liquid diet; continues to improve Status: Acute (3) Hypokalemia: Problem details: Supplementing potassium. 12/27 potassium 3.1; IV potassium ordered Status: Acute Plan Anticipated discharge will be [facility] Friday; will need full advancement of diet; resolution of ileus; etc Subjective Date Seen: 12/27/22 Interval history: [place] last BM yesterday morning tolerating clear liquid diet abdominal pain/distention improving no vomiting Exam Narrative: Exam Narrative: Gen: no acute distress HEENT: NCAT EOMI mmm CV: RRR normal s1 s2 Lungs: CTAB Abd: Soft,nt, nd Neuro: Alert, oriented, CN grossly intact; nonfocal screening?exam Psych: appropriate affect MSK: age appropriate muscle mass Skin; Warm, dry no rash on face Const: Vital Signs, click to edit/add: Vital Signs - 24 hr 12/26/22 11:00 12/26/22 15:00 12/26/22 15:00 Temperature 98.6 F 99.9 F H Pulse Rate [Left P ulse Oximeter] 76 78 78 Respiratory Rate 18 18 18 Blood Pressure [Ri ght Arm] 117/72 125/75 Pulse Oximetry 95 96 Oxygen Delivery Me od Room Air Room Air 12/26/22 19:00 12/27/22 01:20 12/27/22 01:20 Temperature 99.1 F 98.0 F Pulse Rate [Left P ulse Oximeter] 76 76 Respiratory Rate 18 18 18 Blood Pressure [Ri ght Arm] 145/72 H Pulse Oximetry 96 [facility] 12/27/22 04:30 Temperature 98.6 F Pulse Rate [Left P ulse Oximeter] 73 Respiratory Rate 18 Blood Pressure [Ri ght Arm] 127/80 Pulse Oximetry 97 [facility] Labs Labs: Laboratory Results - last 24 hr 12/26/22 12/27/22 08:43 05:50 WBC 12.70 H RBC 2.93 L Hgb 8.4 L Hct 26.5 L MCV 90 MCH 29 MCHC 32 RDW Coeff of Ankur 14.3 Plt Count 258 Neut % (Auto) 83.5 H Lymph % (Auto) 7.3 L [place]ade % (Auto) 7.3 Eos % (Auto) 1.5 Baso % (Auto) 0.2 Neut # (Auto) 10.60 H Lymph # (Auto) 0.90 [place] # (Auto) 0.90 Eos # (Auto) 0.20 Baso # (Auto) 0.00 Abs Immat Gran (auto) 0.00 Imm/Tot Granulo (auto) 0.2 Sodium 137 Potassium 3.2 L Chloride 104 Carbon Dioxide 27 Anion Gap 6 L BUN 11 Creatinine 0.4 L Estimated Creat Clear 49.08 Estimated GFR 110 Glucose 93 Calcium 8.3 L C-Reactive Protein 24.4 H Stl C. diff Tox B Gene POSITIVE A* Stl C. diff 027-NAP1-BI PRESUMPTIVE NEGATIVE
[2022-12-27] MEDS: SODIUM CHLORIDE 0.9 % (FLUSH) 10 ML SYRINGE 5 ML IVF ×2 (12:40→20:41)
[2022-12-27] MEDS: BENZONATATE 100 MG CAPSULE PO ×3 (12:41→20:40)
[2022-12-27] MEDS: POTASSIUM CHLORIDE 10 MEQ/100 ML PIGGYBACK 100 MEQ IVPB ×3 (12:42→15:00)
[2022-12-27] MEDS: VANCOMYCIN 125 MG CAPSULE PO ×4 (12:43→20:41)
--- NOTE | 2022-12-27 12:50 | PM.GSPN ---
Subjective Subjective Date Seen: 12/27/22 Interval history: Doing well after surgery. Abdominal pain is improved. She is feeling hungry and happy about and advancement in her diet. Exam Narrative: Exam Narrative: General: Alert and oriented, no acute distress Abdomen: Soft, nontender to palpation and nondistended Const: Vital Signs, click to edit/add: Vital Signs - 24 hr 12/26/22 15:00 12/26/22 15:00 12/26/22 19:00 Temperature 99.9 F H 99.1 F Pulse Rate [Left P ulse Oximeter] 78 78 Respiratory Rate 18 18 18 Blood Pressure [Ri ght Arm] 125/75 Pulse Oximetry 96 Oxygen Delivery Me thod Room Air 12/27/22 01:20 12/27/22 01:20 12/27/22 04:30 Temperature 98.0 F 98.6 F Pulse Rate [Left P ulse Oximeter] 76 76 73 Respiratory Rate 18 18 18 Blood Pressure [Ri ght Arm] 145/72 H 127/80 Pulse Oximetry 96 97 Oxygen Delivery Me thod Room Air Room Air 12/27/22 07:25 12/27/22 11:00 Temperature 99.4 F 98.3 F Pulse Rate [Left P ulse Oximeter] 75 70 Respiratory Rate 18 18 Blood Pressure [Ri ght Arm] 139/91 H 148/87 H Pulse Oximetry 96 96 Oxygen Delivery Me thod Room Air Room Air Labs/Imaging Labs Labs: Leukocytosis is trending down, WBC 12.7 today Imaging Imaging: No new imaging Progress Note: A&P Assessment and plan (1) C. difficile colitis: Problem details: C diff colitis is likely the cause for her abdominal pain and ileus. Treat with oral vancomycin. Status: Acute Assessment and Plan: Patient is status post left total knee with postop course complicated by C diff colitis. Her abdominal exam has improved, vital signs stable and afebrile overnight. Leukocytosis is trending down. Hospitalist is continuing to follow and treating with oral vancomycin. No surgical intervention recommended at this time with general surgery to sign off. Please call the on-call surgeon with any acute clinical changes, questions or concerns.
--- NOTE | 2022-12-27 15:44 | PC.NURSE ---
Pt received IV Potassium bumps on day shift. Eval by Dr. Stewart. Hold HCTZ for now, pt is aware. Pt showered with SBA of her [place]. Tolerating [place] diet, pain managed with tylenol. Report to oncoming shift RN Esther Thomson.
[2022-12-27] MEDS: MELATONIN 3 MG TABLET 9 MG PO (20:40)
[2022-12-27] MEDS: ROSUVASTATIN CALCIUM 10 MG TABLET 5 MG PO (20:41)
--- NOTE | 2022-12-27 22:12 | PC.NURSE ---
Shift [id number]- Patient is up with walker and SBA, then to independent with walker within room. She had a BM this afternoon- moderate; also passing gas. She is tolerating full liquid diet without issue and is looking forward to advancing further. She denies pain throughout shift.
[2022-12-28] VITALS (7 sets, daily range): BP systolic 143–181; BP diastolic 76–100; PULSE 73–89; RESP 16–18; TEMP 36.8–37.2; O2SAT 95–98
[2022-12-28] MEDS: ACETAMINOPHEN 325 MG TABLET 650 MG PO ×2 (02:46→20:51)
--- NOTE | 2022-12-28 06:06 | PC.NURSE ---
End of shift nursing note, [id number]: Pt alert and oriented, pleasant. Vitals stable, last BP elevated at 168/80, pt has just returned from bathroom, pt denies headache and concerns. Initial temp 99.0, room temp adjusted, pt more comfortable, recheck temp of 98.3. Pt voiding without issue, x2 small loose BMs this shift, passing flatus. 03/26 tenderness to abd, PRN Tylenol requested and admin & effective. Denies pain to L knee, surgical dressing CDI. Pt tolerating PO fluids. Con?t on precautions. Pt alert and oriented, up w/ ind-SBA and walker. Call light within reach and pt uses appropriately.??
[2022-12-28 07:08] LABS: Basophils Absolute Auto 0.02 K/uL (0.00-0.30); Basophils Percent Auto 0.2 % (0.0-3.0); Eosinophils Absolute Auto 0.34 K/uL (0.00-0.50); Eosinophils Percent Auto 3.7 % (0.0-7.0); Hematocrit 27.2 % (33.0-51.0); Hemoglobin* 8.6 gm/dL (12.0-16.0); Immature Granulocytes Abs Auto 0.04 K/uL (0.00-0.30); Immature Granulocytes Pct Auto 0.4 %; Lymphocytes Percent Auto 9.8 % (20-44); Mean Corpuscular HGB Conc 32 gm/dL (32-36); Mean Corpuscular Hemoglobin 29 pg (26-34); Mean Corpuscular Volume 90 fL (80-100); Monocytes Percent Auto 5.9 % (0.0-11.0); Platelet Count* 297 K/uL (140-440); RDW Coefficient of Variation % 14.3 % (11.5-15.5); Red Blood Count 3.01 m/uL (4.00-5.20); Slide Review Reflex No
[2022-12-28 07:25] LABS: Chloride* 103 mmol/L (96-114); Potassium* 3.7 mmol/L (3.6-5.1); Sodium* 140 mmol/L (135-149)
[2022-12-28 07:26] LABS: Iron* 32 ug/dL (37-170)
[2022-12-28 07:28] LABS: Creatinine* 0.4 mg/dL (0.5-1.5); Est. Creatinine Clearance* 49.08; Estimated Glomerular Filt Rate 110 ml/min
[2022-12-28 07:29] LABS: Anion Gap 9 mEq/L (7-15); Blood Urea Nitrogen* 5 mg/dL (7-30); Calcium* 8.6 mg/dL (8.4-10.6); Carbon Dioxide* 28 mmol/L (20-32); Glucose* 103 mg/dL (60-115); Magnesium* 1.9 mg/dL (1.5-2.6)
[2022-12-28 07:36] LABS: Percent Iron Saturation 12 % (20-50); Total Iron Binding Capacity 258 ug/dL (265-497)
[2022-12-28 07:46] LABS: C Reactive Protein* 19.8 mg/dL (0.5-1.0)
[2022-12-28] MEDS: MULTIVITAMIN/MINERALS 1 TABLET 1 TAB PO (09:03)
[2022-12-28] MEDS: atenoloL 25 MG TABLET PO (09:03)
[2022-12-28] MEDS: BENZONATATE 100 MG CAPSULE PO ×3 (09:03→20:51)
[2022-12-28] MEDS: OMEPRAZOLE 20 MG CAPSULE DR PO (09:03)
[2022-12-28] MEDS: VANCOMYCIN 125 MG CAPSULE PO ×4 (09:03→20:51)
[2022-12-28] MEDS: SODIUM CHLORIDE 0.9 % (FLUSH) 10 ML SYRINGE 5 ML IVF ×2 (09:04→20:53)
--- NOTE | 2022-12-28 12:03 | P.IMPN_ITS ---
Progress Note: A&P Assessment and plan (1) C. difficile colitis: Problem details: C diff colitis is likely the cause for her abdominal pain and ileus. Continue treatment with oral vancomycin. Status: Acute (2) Paralytic ileus of large intestine: Problem details: Appears to have a ileus of the large intestines following knee surgery. Likely due to C diff colitis. Avoid opiates and anticholinergics. Advance diet to clear liquids. 12/27: advance to regular diet; continues to improve Status: Acute (3) Hypokalemia: Problem details: Potassium 3.7 today. Restarting hydrochlorothiazide, monitor. Status: Acute (4) History of total left knee replacement: Problem details: left knee arthroplasty (Dr. Hawley) Status: Inactive Assessment and Plan: PT and OT to see her today to help her progress in her exercises and mobility. (5) Hypertension: Problem details: Hydrochlorothiazide was held on admission. Will restart this due to elevated blood pressures today and potassium has normalized. Continue to monitor potassium. Status: Chronic (6) Normocytic anemia: Problem details: Probably secondary to acute blood loss from recent left total knee arthroplasty. This was likely masked by hemoconcentration from dehydration from inability to maintain oral intake secondary to emesis. Iron studies were done and it is noted that she has low iron, total iron binding capacity, and % saturation. While that would be most consistent with anemia of chronic disease, I am not finding a specific cause of that. Start oral iron supplementation. Status: Acute Plan Anticipated discharge will be [facility] [place] Friday; will need full advancement of diet; resolution of ileus; etc Subjective Time Seen by Provider: 12:04 Date Seen: 12/28/22 Interval history: Having small loose BMs with each trip to the bathroom. Feels hungry and is hoping to advance diet to regular diet today. Denies abdominal pain today. She has been doing the prescribed therapies for her knee, but did miss outpatient therapy this past week. Exam Narrative: Exam Narrative: General: No acute distress. Awake, alert, oriented. No pallor. No jaundice. Oropharynx: Clear. Mucous membranes moist. Cardiovascular: Regular rate and rhythm. No murmurs, gallops, or rubs. Respiratory: Clear to auscultation bilaterally. No wheezes or crackles. Abdomen: Bowel sounds slightly hyperactive. Soft, mildly distended, nontender. Extremities: No pedal edema. Const: Vital Signs, click to edit/add: Vital Signs - 24 hr 12/27/22 15:59 12/27/22 19:05 12/28/22 00:00 Temperature 98.6 F 98.1 F 99.0 F Pulse Rate [Left P ulse Oximeter] 75 85 77 Respiratory Rate 18 16 16 Blood Pressure [Le ft Arm] 151/95 H Blood Pressure [Ri ght Arm] 143/84 H 148/76 H Pulse Oximetry 97 97 97 Oxygen Delivery Me thod Room Air Room Air Room Air 12/28/22 03:00 12/28/22 07:00 12/28/22 11:00 Temperature 98.3 F 98.3 F 98.5 F Pulse Rate [Left P ulse Oximeter] 80 78 73 Respiratory Rate 16 16 16 Blood Pressure [Le ft Arm] Blood Pressure [Ri ght Arm] 168/80 H 181/92 H 181/100 H Pulse Oximetry 96 98 97 Oxygen Delivery Me thod Room Air Room Air Room Air Labs Labs: Laboratory Results - last 24 hr 12/28/22 06:22 WBC 9.10 RBC 3.01 L Hgb 8.6 L Hct 27.2 L MCV 90 MCH 29 MCHC 32 RDW Coeff of Ankur 14.3 Plt Count 297 Neut % (Auto) 80.0 H Lymph % (Auto) 9.8 L Real % (Auto) 5.9 Eos % (Auto) 3.7 Baso % (Auto) 0.2 Neut # (Auto) 7.30 H Lymph # (Auto) 0.90 Real # (Auto) 0.50 Eos # (Auto) 0.34 Baso # (Auto) 0.02 Abs Immat Gran (auto) 0.04 Imm/Tot Granulo (auto) 0.4 Sodium 140 Potassium 3.7 Chloride 103 Carbon Dioxide 28 Anion Gap 9 BUN 5 L Creatinine 0.4 L Estimated Creat Clear 49.08 Estimated GFR 110 Glucose 103 Calcium 8.6 Magnesium 1.9 Iron 32 L TIBC 258 L % Saturation 12 L C-Reactive Protein 19.8 H
[2022-12-28] MEDS: hydroCHLOROthiazide 25 MG TABLET PO (13:44)
--- NOTE | 2022-12-28 17:19 | PC.NURSE ---
Pt alert and oriented, independent in room. Pt denies pain, advanced to regular diet during shift, tolerating well. Pt voiding and having BM without difficulty. Afebrile, VSS, family at bedside. Pt up to ambulate with PT during shift. Patient resting comfortably at end of shift.
[2022-12-28] MEDS: MELATONIN 3 MG TABLET 9 MG PO (20:51)
[2022-12-28] MEDS: ROSUVASTATIN CALCIUM 10 MG TABLET 5 MG PO (20:51)
--- NOTE | 2022-12-28 22:31 | PC.NURSE ---
Shift [id number]- Patient denies pain, states regular diet has been going well. She is up ad emmy within room. No BMs this evening.
[2022-12-29 03:00] VITALS: BP 148/81; PULSE 74; RESP 18; TEMP 37; O2SAT 97
[2022-12-29] MEDS: ACETAMINOPHEN 325 MG TABLET 650 MG PO (04:15)
--- NOTE | 2022-12-29 04:49 | PC.NURSE ---
Shift note: Pt is doing will. No fever, abd. pain, n/v reported this shift. A/O, ambulate independently with walker in room. Pt is pleasant and cooperate with care and treatment. Pt had adequate sleep. Pt asked for Tylenol for pain level of 3 at 0410.
[2022-12-29 07:00] VITALS: BP 173/87; PULSE 80; RESP 16; TEMP 36.8; O2SAT 97
[2022-12-29 07:25] LABS: Basophils Absolute Auto 0.03 K/uL (0.00-0.30); Basophils Percent Auto 0.3 % (0.0-3.0); Eosinophils Absolute Auto 0.28 K/uL (0.00-0.50); Eosinophils Percent Auto 2.9 % (0.0-7.0); Hematocrit 29.7 % (33.0-51.0); Hemoglobin* 9.6 gm/dL (12.0-16.0); Immature Granulocytes Abs Auto 0.11 K/uL (0.00-0.30); Immature Granulocytes Pct Auto 1.2 %; Lymphocytes Percent Auto 9.5 % (20-44); Mean Corpuscular HGB Conc 32 gm/dL (32-36); Mean Corpuscular Hemoglobin 29 pg (26-34); Mean Corpuscular Volume 89 fL (80-100); Monocytes Percent Auto 7.5 % (0.0-11.0); Neutrophils Percent Auto 78.6 % (42.0-72.0); Platelet Count* 371 K/uL (140-440); RDW Coefficient of Variation % 14.3 % (11.5-15.5); Red Blood Count 3.33 m/uL (4.00-5.20); White Blood Count* 9.52 K/uL (4.50-11.00)
[2022-12-29 07:26] LABS: Slide Review Reflex No
[2022-12-29 07:31] LABS: Chloride* 99 mmol/L (96-114); Potassium* 3.2 mmol/L (3.6-5.1); Sodium* 138 mmol/L (135-149)
[2022-12-29 07:34] LABS: Anion Gap 9 mEq/L (7-15); Blood Urea Nitrogen* 7 mg/dL (7-30); Calcium* 8.7 mg/dL (8.4-10.6); Carbon Dioxide* 30 mmol/L (20-32); Creatinine* 0.4 mg/dL (0.5-1.5); Est. Creatinine Clearance* 49.08; Estimated Glomerular Filt Rate 110 ml/min; Glucose* 120 mg/dL (60-115)
[2022-12-29] MEDS: SODIUM CHLORIDE 0.9 % (FLUSH) 10 ML SYRINGE 5 ML IVF (08:56)
[2022-12-29] MEDS: POTASSIUM BICARB 25 MEQ EFFERVESCENT TAB PO ×2 (08:56→10:13)
[2022-12-29] MEDS: OMEPRAZOLE 20 MG CAPSULE DR PO (08:57)
[2022-12-29] MEDS: BENZONATATE 100 MG CAPSULE PO (08:57)
[2022-12-29] MEDS: VANCOMYCIN 125 MG CAPSULE PO ×2 (08:57→13:11)
[2022-12-29] MEDS: hydroCHLOROthiazide 25 MG TABLET PO (08:57)
[2022-12-29] MEDS: MULTIVITAMIN/MINERALS 1 TABLET 1 TAB PO (08:57)
[2022-12-29] MEDS: atenoloL 25 MG TABLET PO (08:58)
--- NOTE | 2022-12-29 10:44 | PM.DS1 ---
DS: Providers Provider Time Seen by Provider: 09:00 Date Seen: 12/29/22 Date of admission: 12/25/22 22:15 Primary care physician: Allyson Musa MD Admitting Clinician: Luis Alexander MD Consults: 12/25/22 22:15 Consult to Physician [CONS] Urgent Comment: Consulting Provider: Ambar Bo Has provider been notified: Yes 12/28/22 11:57 Consult to Occupational Therapy [CONS] Routine Comment: Reason(s) for OT Consult:: Evaluate and Treat Any Restrictions?:: No Restrictions Consult to Physical Therapy [CONS] Routine Comment: Reason(s) for PT Consult:: Evaluate and Treat Any Restrictions?:: No Restrictions Attending Physician on discharge: Ragini Saavedra MD Date of Discharge: 12/29/22 DS: Diagnosis Discharge Diagnosis (1) C. difficile colitis: Status: Acute Problem details: C diff colitis is likely the cause for her abdominal pain and ileus. Symptoms improving. Tolerating regular diet. BMs soft now. Discharge home. Continue treatment with oral vancomycin. For infection control, have moved outpatient ortho and PT appointments to the end of the week. (2) Paralytic ileus of large intestine: Status: Resolved Problem details: Appears to have a ileus of the large intestines following knee surgery. Likely due to C diff colitis. Avoid opiates and anticholinergics. Resolved. (3) Normocytic anemia: Status: Acute Problem details: Probably secondary to acute blood loss from recent left total knee arthroplasty. This was likely masked by hemoconcentration from dehydration from inability to maintain oral intake secondary to emesis. Iron studies were done and it is noted that she has low iron, total iron binding capacity, and % saturation. While that would be most consistent with anemia of chronic disease, I am not finding a specific cause of that. Start oral iron supplementation. - HGB increased to 9.6 today, 12/29. No evidence of ongoing or currently active bleeding. (4) History of total left knee replacement: Status: Acute Problem details: 12/23/22 left knee arthroplasty (Dr. Hawley) (5) Hypokalemia: Status: Acute Problem details: Potassium low today after restarting HCTZ yesterday. Start daily potassium upon discharge. F/u with PCP for recheck. (6) Dyslipidemia: Status: Chronic Problem details: resume rosuvastatin (7) Hypertension: Status: Chronic Problem details: Hydrochlorothiazide was held on admission. Restarted 12/28/22 due to elevated blood pressures. DS: Summary Hospital Course Hospital Course: This is a 62-year-old female who had an outpatient left total knee arthroplasty on 12/23/2022. Postoperatively she did well from a knee standpoint, but developed emesis and lack of stool associated with abdominal pain. She was found to have an ileus and colitis. She was admitted to the hospital and had sudden onset of multiple loose stools which tested positive for C difficile. She was started on oral vancomycin and has done well with improvement of loose stools and resolution of ileus. She is tolerating it regular diet and is discharged home in stable condition today. She is back on her usual home medications. I have started daily potassium as she has hypokalemia with restarting hydrochlorothiazide. Time Spent with Patient Time attestation: Total time spent providing and/or coordinating discharge services: Exam Narrative: Exam Narrative: General: No acute distress. Awake, alert, oriented. No pallor. No jaundice. Oropharynx: Clear. Mucous membranes moist. Cardiovascular: Regular rate and rhythm. No murmurs, gallops, or rubs. Respiratory: Clear to auscultation bilaterally. No wheezes or crackles. Abdomen: Bowel sounds present. Soft, nondistended, nontender. Extremities: No pedal edema. Const: Vital Signs, click to edit/add: Vital Signs - 24 hr 12/28/22 11:00 12/28/22 15:00 12/28/22 19:30 Temperature 98.5 F 98.4 F 98.6 F Pulse Rate [Left P ulse Oximeter] 73 78 89 Respiratory Rate 16 16 18 Blood Pressure [Le ft Arm] 179/76 H Blood Pressure [Ri ght Arm] 181/100 H 162/78 H Pulse Oximetry 97 97 97 Oxygen Delivery Me thod Room Air Room Air Room Air 12/28/22 23:00 12/29/22 03:00 Temperature 98.7 F 98.6 F Pulse Rate [Left P ulse Oximeter] 79 74 Respiratory Rate 18 18 Blood Pressure [Le ft Arm] 143/82 H 148/81 H Blood Pressure [Ri ght Arm] Pulse Oximetry 95 97 Oxygen Delivery Me thod Room Air Room Air DS: Data Data Completed and Pending Completed studies during hospitalization: Ordering Physician: Makayla Hoover M.D. Date of Service: 12/25/22 Procedure(s): XR abdomen min 2V Accession Number(s): [id number] cc: Allyson Musa M.D.; Makayla Hoover M.D.~ For Patients: As a result of the Cures Act, medical imaging exams and procedure reports are released immediately into your electronic medical record. You may view this report before your referring provider. If you have questions, please contact your health care provider. Indication: Nausea, vomiting and constipation Technique: None Comparison: Upright and supine views the abdomen were acquired Findings: There is no free air. There is distention of bowel with air-fluid levels. This appears to be primarily colon. This raises the possibility a colonic obstruction. Consider a CT. Impression: Abnormally dilated bowel with air-fluid levels. This is a colon and could represent an ileus or low colonic obstruction. No free air. Consider a CT Dictated by Santy Jorge MD @ 12/25/2022 7:53:29 PM (Electronically Signed) Ordering Physician: Makayla Hoover M.D. Date of Service: 12/25/22 Procedure(s): CT abdomen pelvis w con Accession Number(s): [id number] cc: Allyson Musa M.D.; Makayla Hoover M.D.~ For Patients: As a result of the Cures Act, medical imaging exams and procedure reports are released immediately into your electronic medical record. You may view this report before your referring provider. If you have questions, please contact your health care provider. INDICATION: abnormal abdomen xray, nausea, vomiting, no stool output, abdominal pain. TECHNIQUE: CT abdomen and pelvis acquired with 94 cc Isovue 370 IV contrast. COMPARISON: None. FINDINGS: Lower chest: Mild bibasilar atelectasis. Liver: Unremarkable. Normal in size and attenuation. No suspicious masses. Gallbladder and bile ducts: Status postcholecystectomy. No intra or extrahepatic biliary ductal dilatation. Pancreas: Unremarkable. No mass or inflammation. Spleen: Unremarkable. Normal in size. No masses. Adrenal glands: Unremarkable. No nodules. Kidneys: Multiple bilateral parapelvic cysts. No hydronephrosis or hydroureter. No renal or ureteral stones identified. GI tract: The large bowel is nondilated. Air-fluid levels in the large bowel. There is mild enhancement and pericolonic fat stranding especially at the distal transverse colon, splenic flexure (2/63). Distally, there is minimal fluid within the large bowel loops in the sigmoid colon and rectum with predominantly solid fecal material without significant distension. No bowel obstruction. Appendix is within normal limits. Moderate hiatal hernia. Vasculature: Abdominal aorta is normal in caliber. Mesenteric arteries are patent. Lymph nodes: No lymphadenopathy. Peritoneum/Abdominal Wall: Trace free fluid in the pelvis and adjacent to the spleen. No sign of mass or infiltration. No free air or significant free fluid. Pelvis: Unremarkable. Bones: Unremarkable for age. IMPRESSION: Fluid filled loops of large bowel with mild wall thickening and enhancement with pericolonic fat stranding concerning for colitis. No bowel obstruction. Status post cholecystectomy. Please note that all CT scans at this facility use dose modulation, iterative reconstruction, and/or weight-based dosing when appropriate to reduce radiation dose to as low as reasonably achievable. Dictated by Yamil Mayer MD @ 12/25/2022 8:18:11 PM (Electronically Signed) Labs on day of discharge: Labs from last 24 hours 12/29/22 06:15 WBC 9.52 RBC 3.33 L Hgb 9.6 L Hct 29.7 L MCV 89 MCH 29 MCHC 32 RDW Coeff of Ankur 14.3 Plt Count 371 Neut % (Auto) 78.6 H Lymph % (Auto) 9.5 L [place] % (Auto) 7.5 Eos % (Auto) 2.9 Baso % (Auto) 0.3 Neut # (Auto) 7.50 H Lymph # (Auto) 0.90 [place] # (Auto) 0.70 Eos # (Auto) 0.28 Baso # (Auto) 0.03 Abs Immat Gran (auto) 0.11 Imm/Tot Granulo (auto) 1.2 Sodium 138 Potassium 3.2 L Chloride 99 Carbon Dioxide 30 Anion Gap 9 BUN 7 Creatinine 0.4 L Estimated Creat Clear 49.08 Estimated GFR 110 Glucose 120 H Calcium 8.7 Preliminary micro results at discharge 12/26/22 08:05 Blood Culture - Preliminary Blood NO GROWTH AFTER 72 HOURS 12/26/22 07:55 Blood Culture - Preliminary Blood NO GROWTH AFTER 72 HOURS Discharge Plan Discharge Disposition: Home, Self-Care Date of Admission: 12/25/22 22:15 Attending Provider on Discharge: Ragini Saavedra Consulting Providers: Ambar Bo Primary Care Provider: Allyson Musa Condition: Improved Anticipated Discharge Date/Time: 12/29/22 10:55 Discharge Medications: New vancomycin 125 mg Capsule 125 mg PO QID 6 Days Qty: 24 0RF ferrous sulfate 325 mg (65 mg iron) Tablet 325 mg PO DAILY Qty: 30 0RF potassium chloride 20 mEq tablet extended release 20 meq PO DAILY Qty: 30 0RF Continued multivitamin Tablet 1 tab PO QDAY aspirin 81 mg tablet,delayed release (DR/EC) 81 mg PO QDAY Hold Instructions: Resume on 12/24/22. Take twice daily x1 month. Then resume once daily use thereafter melatonin 10 mg tablet 10 mg PO HS PRN diclofenac sodium 1 % gel 2 g topical QID PRN Rx Instructions: apply to single elbow, wrist or hand; for hand includes palm/fingers/back of hand ibuprofen [Advil] 200 mg tablet 400 mg PO Q8H bisacodyl [Dulcolax (bisacodyl)] 1 tab PO BID atenolol 25 mg tablet 25 mg PO DAILY Qty: 90 4RF hydrochlorothiazide 25 mg tablet 25 mg PO DAILY Qty: 90 4RF omeprazole 20 mg tablet,delayed release (DR/EC) 20 mg PO DAILY Qty: 90 4RF trospium 60 mg capsule,extended release 24hr 60 mg PO QDAY Qty: 90 4RF Rx Instructions: must be taken on empty stomach at least 1 hour before a meal/food with water only ondansetron 4 mg tablet,disintegrating 4 mg PO Q8H Qty: 15 0RF oxycodone 5 mg tablet 5 mg PO Q4-8H PRN (Reason: pain) Qty: 40 0RF acetaminophen 500 mg capsule 500 - 1,000 mg PO Q6H MDD 4000mg PRNQty: 100 0RF cholecalciferol (vitamin D3) 25 mcg (1,000 unit) tablet 25 mcg PO DAILY rosuvastatin 5 mg tablet 5 mg PO HS Held sennosides-docusate sodium [Senna-S] 8.6-50 mg tablet 1 tab-cap PO BID PRN (Reason: constipation) Qty: 60 2RF Hold Instructions: Resume on 01/01/23. Do not take if BMs loose or mushy Rx Instructions: 1-2 tabs by mouth twice daily as needed. Recommended to take while using narcotics. Discharge Orders: Discharge Order (Routine); Ordered 12/29/22 Ordered By: Ragini Saavedra Patient Education: C. Diff (Clostridioides Difficile) Infection (DC) Additional Instructions: PT and ortho appointments this week will be rescheduled to Friday. Continue doing your exercises as prescribed by PT and OT today. Activity Level: Other Activity Detail: Continue post op restrictions per ortho's previous instructions Discharge Diet: Regular Follow Up Appointments: Allyson Musa MD [Primary Care Provider] - (5-7 days, potassium and hemoglobin check) [facility] Info Instructions
[2022-12-29 11:00] VITALS: BP 134/86; PULSE 74; RESP 16; TEMP 37.1; O2SAT 97
--- NOTE | 2022-12-29 14:04 | PC.NURSE ---
discharge: Patient alert and oriented, tolerating regular diet, afebrile, denies pain. IV removed, catheter intact. Family at bedside. Belongings form signed, discharge instructions provided. Patient verbalized understanding. Pt discharge to home at approximately 13:18.
== END 2022-12-29 13:18 | disposition home or self-care (01) | DRG 372 ==
LOC: ED 20:25 → MEDSURG 20:56
PROVIDERS: Hospitalist; Admitting Provider Family Medicine; Emergency Provider Family Medicine; PCP Family Medicine; Visit Provider Family Medicine
DX: A04.72 Enterocolitis due to Clostridium difficile, not specified as recurrent (principal); D62 Acute posthemorrhagic anemia; K56.0 Paralytic ileus; E87.6 Hypokalemia; K59.09 Other constipation; E66.9 Obesity, unspecified; R73.03 Prediabetes; I10 Essential (primary) hypertension; K21.9 Gastro-esophageal reflux disease without esophagitis; N39.46 Mixed incontinence; Z96.652 Presence of left artificial knee joint; R10.84 Generalized abdominal pain; E78.5 Hyperlipidemia, unspecified
CPT/HCPCS: 36415; 74019; 74177; 80048; 81001; 83540; 83550; 83605; 83735; 85025; 86140; 87040; 87081; 87493; 97110; 97116; 97161; 97165; 97530; 99285; A9153; A9270; J1650; J1885; J3480; J7030; Q9967

== ENCOUNTER 2023-01-02 15:23 | Outpatient (CLI) | payer OTHER, SELFPAY | END 2023-01-02 15:24 | disposition home or self-care (01) | LOC: NFLDREF 15:24 | PROVIDERS: PCP Family Medicine; Visit Provider Family Medicine | DX: E87.6 Hypokalemia (principal); D64.9 Anemia, unspecified | CPT/HCPCS: 80048 ==

== ENCOUNTER 2023-03-13 09:00 | Outpatient (RCR) | payer OTHER, SELFPAY ==
--- NOTE | 2022-12-18 12:45 | PT.OPEX ---
PT [place] Outpatient Eval PT [facility] Outpatient Eval Start: 12/17/22 12:11 Freq: Status: Active Protocol: Document 12/17/22 14:20 ASHLEE (Rec: 12/17/22 16:14 [facility] [id number]) E-signed By Loli Hawkins PT Physical Therapy Outpatient Evaluation Insurance Information Insurance Name [employer] Medical Diagnosis RIGHT KNEE OA M17.12 Treating Diagnosis RIGHT KNEE PAIN M25.561 DIFFICULTY AMB R26.2 Subjective Subjective PATIENT IS HERE TODAY FOR HER PREOPERATIVE VISIT HAVING HAD AN INJECTION IN HER CONTRALATERAL KNEE WHICH ALSO HAS MODERATE TO SEVERE OA. SHE STATES, THEY ARE BOTH WORN OUT AND PLANNING TO GET THE OTHER ONE NEXT YEAR. SHE REPORTS DIFFICULTY WITH STAIRS , PROLONGED WALKING, AND BENDING/SQUATING. Pain Comments -07/24 Date of Last Physician Visit 11/06/22 Date of Surgery (If applicable) 12/23/22 Current Work Status [employer] Occupation [employer] Precautions Therapy Limitations/Systems Review Not Limited Objective Other/Pertinent Objective ROM: LEFT KNEE AROM 0-4-100 MMT: HIP FLEX 5/5 HIP ABD 4/5 HIP EXT 4/5 HIP ADD 5/5 KNEE EXT 4+/5 KNEE FLEX 4+5 BILATERAL GENU VARUM JOINT LINE TENDERNESS MEDIAL> LATERAL Assessment Assessment/Impression PATIENT IS A 62 YO REFERRED TO PHYSICAL THERAPY BY DR. HOOD TO EVAL AND TX HER LEFT KNEE SEVERE OA WITH LEFT TKA SCHEDULED FOR 12/23/22. PMHX INCLUDES BUT NOT LIMITED TO PREDIABETES, ARTHRITIS, H/O R/L KNEE SCOPE, AND CARPAL TUNNEL RELEASE. SHE LIVES WITH HER SPOUSE AND [address] [facility] HOME WITH 2 STEPS TO ENTER W/O RAILINGS. SHE REPORTS SEVERAL YEAR H/O BILATERAL KNEE PAIN RECEIVING INJECTIONS PERIODICALLY. SHE HAS OPTED TO HAVE HER LEFT KNEE REPLACED FIRST WITH THE RIGHT TO FOLLOW NEXT YEAR. WE DISCUSSED PAIN AND EDEMA MGMT THROUGH ICE, ELEVATION, AND PO MEDS DIRECTED WELL S /S OF INFECTION AND DVT. SHE IS ABLE TO PERFORM A TEACH BACK ON ALL AND PERFORMED HER PREOPERATIVE EXERCISE PROGRAM WITH MIN CORRECTION ON FORM. SHE WILL HAVE SAME DAY SURGERY WITH HER SPOUSE PICKING HER UP AND USING A FWW TO AMB. WILL REASSESS UPON HER FIRST VISIT S/P ROM, STRENGTH, SYMPTOM MGMT. Primary Functional Limitations PROLONGED STDG/WALKING STAIRS BENDING/KNEELING Plan of Care Rehabilitation Potential Good Physical Therapy Goals STG IN 1 VISIT: 1. PATIENT WILL VERBALIZE GOOD UNDERSTANDING SYMPTOM MGMT AND S/S OF INFECTION. 2. PATIENT WILL PERFORM HER HEP INDEPENDENTLY. Coordination/Communication With Referral Source Treatment Plan/Direct Interventions Gait Training,Ice/Cold/ Vasopneumatic,Joint Mobilization,Manual Therapy, Neuromuscular Re-ed,Self-Care/ Home Management,Therapeutic Activities,Therapeutic Exercises Patient Will Be Discharged From Therapy Completion of LTG(s), Independently Progressing Discharge Plan Comments DISCHARGE TO SELF WHEN GOALS MET Evaluation Billing Untimed Code Treatment Minutes 15 PT Eval No Charge No Complexity Low Certification Information Initial Certification Date 12/17/22 Ending Certification Date 03/16/23 Provider Signature Shows Agreement With POC & Medical Necessity Physician Signature & Date Requested Please Sign/Date Here Physician Comment/Change : Physician NPI Number #
== END 2023-03-13 13:38 | disposition home or self-care (01) ==
PROVIDERS: PCP Family Medicine; Visit Provider Orthopaedic Surgery Sports Medicine
DX: M17.12 Unilateral primary osteoarthritis, left knee (principal); Z96.652 Presence of left artificial knee joint; M25.561 Pain in right knee; R26.2 Difficulty in walking, not elsewhere classified; Z51.89 Encounter for other specified aftercare
CPT/HCPCS: 97110; 97112; 97161; 97164

== ENCOUNTER 2023-05-02 12:36 | Outpatient (CLI) | payer MEDICARE, BC, SELFPAY ==
--- OUTSIDE RECORDS SUMMARY | 2023-05-02 12:43 | XMS_ITS | Clinical Summary ---
Author Name Unknown Organization [facility] Address [address] [facility] [place] [address] Care Team Providers Care Grain Broker And Market Operator Name Role Phone Allyson Musa MD Primary Care Provider + Allergies No known active allergies Medications Medication Sig Dispensed Refills Start Date End Date Status hydrochlorothiazide (HYDRODIURIL) 25 MG tablet Take 25 mg by mouth daily 0 Active atenolol (TENORMIN) 25 MG tablet Take 25 mg by mouth daily 0 Active rosuvastatin (CRESTOR) 5 MG tablet Take 5 mg by mouth daily 0 Active mirabegron (MYRBETRIQ) 25 MG 24 hr tablet Take 25 mg by mouth daily 0 Active omeprazole (PRILOSEC) [address] capsule Take 20 mg by mouth daily 0 Active aspirin 81 MG EC tablet Take 81 mg by mouth daily 0 Active Multiple Vitamins-Minerals (MULTIVITAMIN PO) Take by mouth daily 0 Active Misc Natural Products (GLUCOSAMINE CHOND COMPLEX/MSM) TABS Take by mouth daily 0 Active melatonin 3 MG CAPS Take 1 capsule by mouth nightly as needed 0 Active cholecalciferol (VITAMIN D3) 1000 units (25 mcg) capsule Take 1 capsule by mouth daily 0 Active [place]-3 Fatty Acids (FISH OIL) 1200 MG capsule Take 1,200 mg by mouth daily 0 Active Plant Sterols and Stanols (CHOLESTOFF PLUS PO) Take by mouth daily 0 Active psyllium (METAMUCIL/KONSYL) 58.6 % powder Take by mouth daily 0 Active acetaminophen (TYLENOL) 650 MG CR tabletIndications:Stre ss incontinence Take 1 tablet (650 mg) by mouth every 8 hours as needed for pain 30 tablet 0 03/04/2019 Active ibuprofen (ADVIL/MOTRIN) 600 MG tabletIndications:Stre ss incontinence Take 1 tablet (600 mg) by mouth every 6 hours as needed for pain 30 tablet 0 03/04/2019 Active Social History Tobacco Use Types Packs/Day Years Used Date Smoking Tobacco: Never Smokeless Tobacco: Never Alcohol Use Standard Drinks/Week Comments Yes 0 (1 standard drink = 0.6 oz pur e alcohol) occas Sex and Gender Information Value Date Recorded Sex Assigned at Not on file Gender Identity Not on file Sexual Orientation Not on file Last Filed Vital Signs Vital Sign Reading Time Taken Comments Blood Pressure 152/94 03/04/2019 10:46 AM INFORMATION RESOURCES DIRECTOR Pulse 53 03/04/2019 9:32 AM INFORMATION RESOURCES DIRECTOR Temperature 36.1 ??C (96.9 ??F) 03/04/2019 10:[address] Respiratory Rate 12 03/04/2019 10:46 AM INFORMATION RESOURCES DIRECTOR Oxygen Saturation 97% 03/04/2019 10:46 AM INFORMATION RESOURCES DIRECTOR Inhaled Oxygen Concentration - - Weight 85.7 kg (189 lb) 03/04/2019 6:16 AM INFORMATION RESOURCES DIRECTOR Height 163.2 cm (5' 4.25) 03/04/2019 6:16 AM CS T Body Mass Index 32.19 03/04/2019 6:16 AM INFORMATION RESOURCES DIRECTOR Plan of Treatment Not on file Medical Devices Implanted Type Area Ingot Weigher Device Identifier Shelf Expiration Date Model / Serial / Lot Mesh Sling Advantage Mid-Uretheral Blue [id number] Implanted:Qty : 1 on 03/04/2019 by Mariana Barbosa MD at [facility] Mesh N/A: Urethra [employer] [id number] 10/14/2021 [id number] / / [id number] Advance Directives For more information, please contact: [phone] Latest Code Status on File Code Status Date Activated Date Inactivated Comments Full Code 03/04/2019 8:31 AM Question Answer Comments Code status determined by: Other (please rosario t) Care Teams Grain Broker And Market Operator Relationship Specialty Start Date End Date Allyson Musa MD [facility] & [address] [address] PCP - General Family Practice 02/10/19
--- OUTSIDE RECORDS SUMMARY | 2023-05-02 12:43 | XMS_ITS | Referral Summary ---
Author Name Unknown Organization [place] Address [address] [place] [address] Care Team Providers Care Software Computer Specialist Name Role Phone Allyson Musa MD Primary [...] 1 capsule by mouth daily 0 Active [place]-3 Fatty Acids (FISH OIL) 1200 MG capsule [...] Comments Blood Pressure 152/94 03/04/2019 10:46 AM HOME HEALTH CARE PROVIDER Pulse 53 03/04/2019 9:32 AM HOME HEALTH CARE PROVIDER Temperature 36.1 ??C (96.9 ??F) 03/04/2019 10:[address] Respiratory Rate 12 03/04/2019 10:46 AM HOME HEALTH CARE PROVIDER Oxygen Saturation 97% 03/04/2019 10:46 AM HOME HEALTH CARE PROVIDER Inhaled Oxygen Concentration - - Weight 85.7 kg (189 lb) 03/04/2019 6:16 AM HOME HEALTH CARE PROVIDER Height 163.2 cm (5' 4.25) 03/04/2019 6:16 AM CS T Body Mass Index 32.19 03/04/2019 6:16 AM HOME HEALTH CARE PROVIDER Plan of Treatment Not on file Medical Devices Implanted Type Area Flower Shop Laborer/Designer Device Identifier Shelf Expiration Date Model / Serial / Lot Mesh Sling Advantage Mid-Uretheral Blue [id number] Implanted:Qty : 1 on 03/04/2019 by Mariana Barbosa MD at [facility] Mesh N/A: Urethra [employer] [id number] 10/14/2021 [id number] / / [id number] Advance Directives For more information, please contact: [phone] Latest Code Status on File Code Status Date Activated Date Inactivated Comments Full Code 03/04/2019 8:31 AM Question Answer Comments Code status determined by: Other (please rosario t) Care Teams Software Computer Specialist Relationship Specialty Start Date End Date Allyson Musa MD [facility] & [address] [address] PCP - General Family Practice 02/10/19
--- OUTSIDE RECORDS SUMMARY | 2023-05-02 12:43 | XMS_ITS | Patient Health Record ---
Author Name Unknown Organization [facility] Address [address] [place] [address] Support Name Relationship Address Phone KATHY NEERAJ Guarantor Unknown [phone] REASON FOR REFERRAL No Information MEDICATIONS Medication [...] hydroCHLOROthiazide 25 MG 1 tablet in th e morning Orally Once a day for 30 [...] Once a day for 30 day(s) Active [place] 3 1200 MG 1 capsule Orally Once [...] Notes Problem Overactive bladder (N32.81) Active confirmed 397539292 Problem Cystocele, midline (N81.11) Active confirmed 238475206 Problem Rectocele (N81.6) Active confirmed 079904581 Problem Stress incontinence (N39.3) Active confirmed 25362842 Problem Mixed stress and urge urinary incontinence (N39.46) Active confirmed 674378637 Problem Mixed urge and stress incontinence (N39.46) Active confirmed Mixed incontinence ([id number]) PLAN OF TREATMENT No Information Insurance Providers Payer Name Payer Address Payer Phone Subscriber Number Group Number Insured Name Patient Relationship to Insured Coverage Start Date Coverage End Date [employer] (Ins. Bill) [address] [place], [place] [phone] [id number] IFB NEERAJ CHAVEZ Self - patient is [...] medial meniscus repair of left knee 05/06 06 Hemorrhoidectomy 01/18/2013 Urethral sling and bulking 02/2019
--- OUTSIDE RECORDS SUMMARY | 2023-05-02 12:43 | XMS_ITS | Clinical Summary ---
Author Name Unknown Organization [facility] Address [place], [place] [address] Care Team Providers Care Fish And Wildlife Biologist Name Role Phone Allyson Musa MD Primary Care Provider + Allergies No known active allergies Medications Medication Sig Dispensed Refills Start Date End Date Status PRILOSEC 20 MG CAP take 1 capsule (20 mg) by oral route once daily before a meal 0 10/01/2006 Active MULTIVITAMIN TAB take 1 tablet by oral route once daily with food 0 10/01/2006 Active ASPIRIN 81 MG TAB, DELAYED RELEASEIndications:U nspecified essential hypertension take 1 tablet (81 mg) by oral route once daily 0 10/01/2006 Active Ferrous Sulfate (IRON) 27 mg (Iron) Tab Take by mouth. 1 daily 0 10/09/2009 Active cholecalciferol (VITAMIN D) 1,000 unit tablet Take 1 tablet by mouth once daily. 0 10/15/2010 Active calcium 600 mg capsule Take 1 capsule by mouth once daily. daily 0 10/15/2010 Active glucosamine-chondroi t-vit c-mn (GLUCOSAMINE CHONDROITIN MAXSTR) 500-400 mg cap 1 twice daily. 0 03/27/2012 Active melatonin 1 mgIndications:Routin e general medical examination at a health care facility Take 1 tablet by mouth at bedtime. 0 10/21/2012 Active [place]-3 Fatty Acids-Vitamin E 2,000-650-12 mg/2.5 gram elpk Take by mouth once daily. 0 06/21/2015 Active atenolol (TENORMIN) 25 mg tabletIndications:Es sential hypertension with goal blood pressure less than 140/90 Take 1 tablet by mouth once daily. 90 tablet 4 10/27/2015 Active diphenhydrAMINE-acet aminophen 25-500 mg (TYLENOL PM EXTRA STRENGTH) 25-500 mg tablet Take 1 tablet by mouth at bedtime if needed. Take tablet at bedtime 0 10/27/2015 Active medication order composer Turmeric 720 mg takes 1 tablet daily 0 10/27/2015 Active medication order composer Probiotic acidophilus takes 39.5 mg 1 tablet daily 0 10/27/2015 Active hydrochlorothiazide (HCTZ) 25 mg tabletIndications:Es sential hypertension, hypertension with unspecified goal TAKE 1 TABLET BY MOUTH ONCE DAILY 90 tablet 3 10/31/2015 Active trospium 60 mg Extended-Release capsule Take 60 mg by mouth. 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 Laura Kaplan M.D. 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 03/27/2012 Immunizations Name Administration Dates Next Due AMB Influenza, IIV3 (Age >=3 years)(Flu Clinic Only) 01/04/2011 Hepatitis A (Adult) 07/02/2016,10/27/2015 Influenza, IIV3 (Age >=3 years) 02/01/2016,12/30,12/17/2011 Td (Age >=7 Years) 09/14/2003 Tdap 10/15/2010 Typhoid (injectable) 10/27/2015 Family History Medical History Relation Name Comments Heart Disease Brother 1 Heart Disease Father at 70 of [place] Heart Disease Mother at 70 of heart attack Heart Disease Sister 1 stent age late 50s Diabetes Sister 2 3 sibs with dm Cancer-breast Sister 3 63, doing well Cancer-colon No Family History Relation Name Status Comments Brother 1 (Age 67) massive [place] Brother 2 (Age 52) of me ningitis Father (Age 70) [place] Mother (Age 70) [place] Sister 1 Sister 2 Sister 3 Social History Tobacco Use Types Packs/Day Years Used Date Smoking Tobacco: Never Smokeless Tobacco: Never Tobacco Cessation:Counseling Given: No Alcohol Use Standard Drinks/Week Comments Yes 0 (1 standard drink = 0.6 oz pur e alcohol) Social Connections Answer Date Recorded Frequency of Communication with Friends and Fami ly Not on file 08/05/2022 Sex and Gender Information Value Date Recorded Sex Assigned at Not on file Gender Identity Not on file Sexual Orientation Not on file Obstetrics History Last Filed Vital Signs Vital Sign Reading Time Taken Comments Blood Pressure 143/88 08/05/2022 8:50 AM CDT Pulse 63 08/05/2022 8:50 AM CDT Temperature 36.6 ??C (97.8 ??F) 08/05/2022 8:50 AM CD T Respiratory Rate 16 04/15/2012 8:00 AM RADIOGRAPHER ANGIOGRAM Oxygen Saturation 100% 08/05/2022 8:50 AM CDT Inhaled Oxygen Concentration - - Weight 88.9 kg (196 lb) 08/05/2022 8:50 AM CDT s andals on Height 165.1 cm (5' 5) 10/27/2015 9:04 AM CDT Body Mass Index 32.62 10/27/2015 9:04 AM CDT Plan of Treatment Health Maintenance Due Date Last Done Comments HIV for age 15-65 1973 Hepatitis C screening for ag e 18-79 1976 Zoster (shingles) series for age 50+ (1 of 2) 2008 Depression screening for age 12+ 06/20/2016 06/21/19 16, 06/21/2015 BMI (ht and wt on same day) for age 18+ 10/26/2016 10/27/2015, 06/21/2015 Mammogram for age 45-75 04/09/2017 04/09/19 17, 04/07/2015, 04/04/2014, Additional history exists Tetanus booster 10/15/2020 10/15/2010, 09/14/2003 Lipids for age 45-75 10/26/2020 10/27/2015, 10/24/2014, 10/19/2012, Additional history exists COVID-19 vaccine series (2022-24 season) 2022 12/18/2021, 09/26/2021, 02/14/2021, Additional history exists Pap test for age 21-65 11/16/2022 , 11/17/2019, 10/29/2016, Additional history exists DEXA/DXA scan for age 65+ 2023 Influenza for age 65+ 2023 02/01/2016 , 12/30/2012, 12/17/2011, Additional history exists Pneumococcal series for age 65+ (1 of 1 - PCV) 2023 Colonoscopy through age 75 04/26/202404/26, 2014, 01/05/2009 Tdap Completed 10/15/2010 Advance Directives Documents on File Type Date Recorded Patient Ad Operations Intern Expl anation Healthcare Directive 05/09/2005 HEALTH CARE DIRECTIVE, [facility], 05/09/05 Latest Code Status on File Code Status Date Activated Date Inactivated Comments Full Code 04/14/2012 6:39 PM 04/15/2012 2:11 PM Code Status History Code Status Date Activated Date Inactivated Comments Full Code 04/14/2012 12:15 PM 04/14/2012 6:39 PM Care Teams Fish And Wildlife Biologist Relationship Specialty Start Date End Date [facility] Musa [facility] [address] [facility] [address] PCP - General Family Practice 09/27/22
--- NOTE | 2023-05-02 13:00 | MR_ITS ---
[facility] [address] [facility] [address] Phone:?[phone] Fax:?[phone] Referring Physician Information: Quinn Fox M.D. [address] [facility] [address] Phone:?[phone] Fax:?[phone] Patient:Estrella Morrissey D.O.B:?1960 Sex:?Female Phone:?[phone] [facility] MRN:?[id number] Exam Date:?05/02/2023 EXAM: MRI OF THE CERVICAL SPINE CLINICAL INFORMATION: 63-year-old female with persistent upper extremity radiculopathy. COMPARISON STUDY: MR dated 07/09/2021. TECHNICAL INFORMATION: T1, T2 GRE, T2 fast spin echo and STIR sagittal thin sections through the cervical spine with T2 gradient refocused and fast spin echo axial sections at selected levels. Oblique sagittal images through the foramina were also acquired. INTERPRETATION: Images reveal mild reversal of the normal cervical lordosis. The cervical cord displays normal signal characteristics and morphologic features. The cerebellar tonsils are normal in position and morphology. The visualized skull base structures appear normal. No paraspinous soft tissue abnormalities are identified. Normal flow-void within the vertebral arteries is again noted bilaterally. At C7-T1 normal disc contour and caliber of the canal and foramina is again noted. Mild facet arthrosis is unchanged. At C6-7 there is moderate to advanced disc degeneration with spondylosis and trace retrolisthesis. Localized type I marrow changes and decreased in extent since the previous study. Mild ligamentous thickening is unchanged. There is mild canal stenosis without cord compromise. Moderate left foraminal stenosis is again demonstrated. At C5-6 moderate disc degeneration without cord compromise is again demonstrated. Uncinate spurring with moderately severe left foraminal stenosis is again demonstrated. At the C4-5 level there is mild spondylosis without canal compromise. Uncinate spurring is minimal. No foraminal stenosis. At the C3-4 level there is mild disc degeneration with an annular fissure and mild spondylosis. No canal or foraminal compromise. The C2-3 level again demonstrates normal disc contour and caliber of the canal and foramina. CONCLUSION: 1. Slight interval decrease in extent of type I marrow changes at C6-7. There is moderate to advanced disc degeneration at this level with moderate left foraminal stenosis. 2. Moderate disc degeneration at C5-C6 with moderately severe left foraminal stenosis is unchanged. 3. No significant canal stenosis at any level, and no evidence for intrinsic cord pathology. Electronically signed on 05/05/2023 11:24:00 AM by Javier Arriaza M.D.
== END 2023-05-02 12:37 | disposition home or self-care (01) ==
LOC: MRI 12:41
PROVIDERS: PCP Family Medicine; Visit Provider Family Medicine
DX: M54.2 Cervicalgia (principal); M54.12 Radiculopathy, cervical region; M50.323 Other cervical disc degeneration at C6-C7 level
CPT/HCPCS: 72141

== ENCOUNTER 2023-06-16 11:10 | Outpatient (CLI) | payer MEDICARE, BC, SELFPAY ==
--- NOTE | 2023-06-16 11:30 | MM_ITS ---
Patient: NEERAJ CHAVEZ Facility:?[facility] Patient ID:?[id number] Site Patient ID:?[id number]. Site :?1960 Study:?XRay-Breast Bilateral 3D W/CAD-06/16/2023 11:42:13 AM Ordering Physician:Michael Final Report: BILATERAL SCREENING MAMMOGRAM WITH COMPUTER-AIDED DETECTION AND TOMOSYNTHESIS TECHNIQUE: CC and MLO views were obtained. These mammographic images have been obtained using full-field digital technique. These mammographic images were interpreted with the benefit of computer-aided detection. Breast tomosynthesis was used in this interpretation. COMPARISON FILM: 06/12/22, 06/08/21, 05/08/20. FINDINGS: There are scattered areas of fibroglandular density. IMPRESSION: There is no radiographic evidence for malignancy. ASSESSMENT: BI-RADS Category 2: Benign RECOMMENDATION: Routine screening mammogram in 1 year. A lay language report of this examination will be provided to the patient. BRANNON RODRIGUEZ M.D. Diagnostic Radiologist [email or web address] EVA/clay D& Transcribed: 11:[address]/Dictated by: Brannon Rodriguez MD @ 06/17/2023 10:42:00 AM Signed by:Riaz Rodriguez MD @06/17/2023 12:07:14 PM (Electronic Signature)
== END 2023-06-16 11:11 | disposition home or self-care (01) ==
LOC: MAMMO 11:11
PROVIDERS: PCP Family Medicine; Visit Provider Family Medicine
DX: Z12.31 Encounter for screening mammogram for malignant neoplasm of breast (principal)
CPT/HCPCS: 77063; 77067

== ENCOUNTER 2023-11-10 08:00 | Outpatient (RCR) | payer MEDICARE, BC, SELFPAY ==
--- NOTE | 2023-09-24 13:12 | PT.OPEX ---
PT [place] Outpatient Eval PT [facility] Outpatient Eval Start: 09/23/23 10:01 Freq: Status: Active Protocol: Document 09/23/23 10:01 ASHLEE (Rec: 09/23/23 16:32 [facility] [id number]) E-signed By Loli Hawkins PT Physical Therapy Outpatient Evaluation Insurance Information Recert Due Date 12/21/23 Insurance Name Medicare B Medical Diagnosis RIGHT PERISCAPULAR PAIN Treating Diagnosis RIGHT PERISCAPULAR PAIN Referring MD DONNA HOOD Subjective Preferred Name NEERAJ Subjective NEERAJ C/O PAIN THAT SHE DOES NOT RECALL ANYTHING THAT WOULD HAVE CAUSED WHAT SHE I FEELING. SHE REPORTS, IT STARTS TO BURN AND RADIATE FROM HERE (UPPER TRAP)TO RIGHT HERE ON MY SHOULDER AND SOMETIMES IN FRONT HERE ( DISTAL CLAVICLE REGION) WHEN I RIDE ON THE BACK WITH ON HIS MOTORCYCLE AND ESPECIALLY WHEN I'M TRYING TO READ IN BED. SHE HAS HAD AN MRI THAT INDICATED LEFT SIDE STENOSIS BUT DOES NOT HAVE LEFT SIDED SYMPTOMS. SHE IS FRUSTRATED B/C DR HOOD FEELS HER CUFF IS INTACT AND STRONG AND THIS IS LIKELY D/T PERISCAPULAR WEAKNESS. Current Work Status Retired Precautions Therapy Limitations/Systems Review Not Limited Assessment Assessment/Impression PATIENT IS [address] HOOD TO EVAL AND TX PERISCAPULAR PAIN. PMHX INCLUDES BUT NOT LIMITED TO LEFT TKA 12/2022, H/O CERVICALGIA W/C6 RADICULOPATHY 04/2023, RIGHT KNEE OA, H/O RIGHT CTR; PATIENT REPORTS INSIDIOUS ONSET OF RIGHT TRAP TO LATERAL SHOULDER BURNING WHEN LAYS FLAT AND READS IN BED, WHEN SHE IS RIDING WITH HER SPOUSE ON HER MOTORCYCLE RESTING HER ARMS ON THE ARM REST, AND AT TIMES WHEN SHE IS RESTING IN A CHAIR. SHE REPORTS HAVING TO ADJUST HER POSITION UNTIL THE BURNING SUBSIDES. SHE DEMONSTRATES FULL AROM AND 5/5 STRENGTH FOR ALL MOTION. SHE REPORTS POSTERIOR SHOULDER PAIN WHEN REACHING INTO PROTRACTION AND ACROSS HER BODY. SHE DEMONSTRATES A MODERATE THORACIC KYPHOSIS AND AN ASSOCIATED DOWAGER'S HUMP NOTING ROPINESS ABOUT HER UPPER TRAP AND ALONG THE MEDIAL BORDER OF HER RIGHT SCAPULA. WE DISCUSSED THE USE OF DTM AND CUPPING ALONG THE KINESIOTAPING TO ADDRESS THE SYMPTOMS AND COMPLIMENTING THIS WITH PERISCAPULAR STRENGTHENING. PATIENT VERBALIZED UNDERSTANDING AND AGREEABLE TO POC AND FREQ. Primary Functional Limitations REACHING CARRYING ADL'S Plan of Care Rehabilitation Potential Good Physical Therapy Goals SHOULDER IN 6-10 VISITS: 1. DECREASE SHOULDER PAIN TO < /2-3/10 WITH DAILY ACTIVITIES AND WITH THE PROGRESSION OF HER HEP OVER THE NEXT 4 WEEKS. 2. DEMONSTRATE PAINFREE AROM OVER THE NEXT 4-6 WEEKS DURING DAILY ACTIVITIES WITHOUT FLARE UPS OF SYMPTOMS. 3. PATIENT WILL VERBALIZED UNDERSTANDING OF POSTURING AND BODY MECHANICS IT RELATES TO DECREASING STRESS, IMPROVED SHOULDER MECHANICS, AND DECREASED SYMPTOMS. 4.PATIENT WILL DEMONSTRATES IMPROVED STRENGTH TO FACILITATE RETURN TO DAILY ACTIVITIES WITH LESS SYMPTOMS AND DECREASED OPPORTUNITIES FOR FLARE UP OF PAIN 5. PATIENT WILL BE INDEPENDENT WITH HER HEP WITHIN THE NEXT 6-8 WEEKS FOR PROGRESSION TWD ABOVE MENTION GOALS, CONTINUED MGMT OF SYMPTOMS, AND ONGOING SELF IMPROVEMENTS IN POSTURING/STRENGTH/ STABILIZATION. Coordination/Communication With Referral Source Treatment Plan/Direct Interventions Dry Needling,Electrical Stimulation,Heat,Ice/Cold/ Vasopneumatic,Joint Mobilization,Manual Therapy, Neuromuscular Re-ed,Self-Care/ Home Management,Therapeutic Activities,Therapeutic Exercises,Ultrasound Frequency/Duration 1X/WK Patient Will Be Discharged From Therapy Completion of LTG(s), Independently Progressing Evaluation Billing Untimed Code Treatment Minutes 20 PT Eval No Charge No Complexity Moderate Certification Information Initial Certification Date 09/23/23 Ending Certification Date 12/21/23 Provider Signature Required Yes Provider Signature Shows Agreement With POC & Medical Necessity Physician NPI Number Write NPI# Here Physician Comment/Change : Physician Signature & Date Requested Please Sign/Date Here
== END 2023-11-26 09:19 | disposition home or self-care (01) ==
PROVIDERS: PCP Family Medicine; Visit Provider Orthopaedic Surgery Sports Medicine
DX: M25.511 Pain in right shoulder (principal); Z51.89 Encounter for other specified aftercare
CPT/HCPCS: 97110; 97140; 97162

== ENCOUNTER 2023-12-05 09:55 | Outpatient (CLI) | payer MEDICARE, BC, SELFPAY ==
--- OUTSIDE RECORDS SUMMARY | 2023-12-07 02:45 | XMS_ITS | Clinical Summary ---
Author Organization [facility] Address [address] [place] [address] Care Team Providers Care Hotel Server Name Role Phone Allyson Musa MD Primary Care Provider + Allergies No known active allergies Medications Medication Sig Dispensed Refills Start Date End Date Status hydrochlorothiazide (HYDRODIURIL) 25 MG tablet Take 25 mg by mouth daily Active atenolol (TENORMIN) 25 MG tablet Take 25 mg by mouth daily Active rosuvastatin (CRESTOR) 5 MG tablet Take 5 mg by mouth daily Active mirabegron (MYRBETRIQ) 25 MG 24 hr tablet Take 25 mg by mouth daily Active omeprazole (PRILOSEC) [address] capsule Take 20 mg by mouth daily Active aspirin 81 MG EC tablet Take 81 mg by mouth daily Active Multiple Vitamins-Minerals (MULTIVITAMIN PO) Take by mouth daily Active Misc Natural Products (GLUCOSAMINE CHOND COMPLEX/MSM) TABS Take by mouth daily Active melatonin 3 MG CAPS Take 1 capsule by mouth nightly as needed Active cholecalciferol (VITAMIN D3) 1000 units (25 mcg) capsule Take 1 capsule by mouth daily Active [place]-3 Fatty Acids (FISH OIL) 1200 MG capsule Take 1,200 mg by mouth daily Active Plant Sterols and Stanols (CHOLESTOFF PLUS PO) Take by mouth daily Active psyllium (METAMUCIL/KONSYL) 58.6 % powder Take by mouth daily Active acetaminophen (TYLENOL) 650 MG CR tabletIndications:Stre ss incontinence Take 1 tablet (650 mg) by mouth every 8 hours as needed for pain 30 tablet 03/04/2019 Active ibuprofen (ADVIL/MOTRIN) 600 MG tabletIndications:Stre ss incontinence Take 1 tablet (600 mg) by mouth every 6 hours as needed for pain 30 tablet 03/04/2019 Active Social History Tobacco Use Types [...] Comments Blood Pressure 152/94 03/04/2019 10:46 AM TRACK SUBWAY REPAIR SUPERVISOR Pulse 53 03/04/2019 9:32 AM TRACK SUBWAY REPAIR SUPERVISOR Temperature 36.1 ??C (96.9 ??F) 03/04/2019 10:[address] Respiratory Rate 12 03/04/2019 10:46 AM TRACK SUBWAY REPAIR SUPERVISOR Oxygen Saturation 97% 03/04/2019 10:46 AM TRACK SUBWAY REPAIR SUPERVISOR Inhaled Oxygen Concentration - - Weight 85.7 kg (189 lb) 03/04/2019 6:16 AM TRACK SUBWAY REPAIR SUPERVISOR Height 163.2 cm (5' 4.25) 03/04/2019 6:16 AM CS T Body Mass Index 32.19 03/04/2019 6:16 AM TRACK SUBWAY REPAIR SUPERVISOR Plan of Treatment Not on file Medical Devices Implanted Type Area Clinical Unit Educator Device Identifier Shelf Expiration Date Model / Serial / Lot Mesh Sling Advantage Mid-Uretheral Blue [id number] Implanted:Qty : 1 on 03/04/2019 by Mariana Barbosa MD at [facility] Mesh N/A: Urethra [employer] [id number] 10/14/2021 [id number] / / [id number] Advance Directives For more information, please contact: [phone] * Full Code (Latest Code Status on File) Date Activated Date Inactivated Comments 03/04/2019 8:31 AM Question Answer Comments Code status determined by: Other (please documen t) Care Teams Hotel Server Relationship Specialty Start Date End Date Allyson Musa MD [facility] & [address] [address] PCP - General Family Practice 02/10/19
--- OUTSIDE RECORDS SUMMARY | 2023-12-07 02:45 | XMS_ITS | Clinical Summary ---
Author Organization [facility] [employer] [facility] Address [place], [place] [address] Care Team Providers Care Diversified Crops Ii Farmworker Name Role Phone Allyson Musa MD Primary [...] by mouth at bedtime. 0 10/21/2012 Active [place]-3 Fatty Acids-Vitamin E 2,000-650-12 mg/2.5 gram elpk [...] Extended-Release capsule Take 60 mg by mouth. 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 Laura Kaplan M.D. 10/18/2011 [...] 1 Heart Disease Father at 70 of [place] Heart Disease Mother at 70 of heart attack Heart Disease Sister 1 stent age late 50s Diabetes Sister 2 3 sibs with dm Cancer-breast Sister 3 63, doing well Cancer-colon No Family History Relation Name Status Comments Brother 1 (Age 67) massive [place] Brother 2 (Age 52) of me ningitis Father (Age 70) [place] Mother (Age 70) [place] Sister 1 Sister 2 Sister 3 Social [...] T Respiratory Rate 16 04/15/2012 8:00 AM BRANCH SERVICE SPECIALIST Oxygen Saturation 100% 08/05/2022 8:50 AM CDT [...] 10/26/2020 10/27/2015, 10/24/2014, 10/19/2012, Additional history exists Pap test for age 21-65 11/16/2022 0, 11/17/2019, 10/29/2016, Additional history exists DEXA/DXA scan for age 65+ 2023 Pneumococcal series for age 65+ (1 of 1 - PCV) 2023 COVID-19 vaccine series (2022-24 season) 2023 12/18/2021, 09/26/2021, 02/14/2021, Additional history exists Influenza for age 65+ 11/16/2023 02/01/2016 , 12/30/2012, 12/17/2011, Additional history exists Colonoscopy through age 75 04/26/202404/26, 2014, 01/05/2009 Tdap Completed 10/15/2010 Procedures Procedure Name Priority Date/Time Associated Diagnosis Comments HOT WORT SETTLER THIN PREP PAP SCREEN IMAGED Routine 11/17/2019 11:15 AM CDT SCAN-MAMMOGRAPHY REPORT 04/09/2016 12:00 AM BRANCH SERVICE SPECIALIST LIPID PANEL W REFLEX MEASURED LDL Routine 10/27/2015 9:52 AM CDT Essential hypertension with goal blood pressure less than 140/90 from Last 3 Months or Most Recently Relevant to Health Maintenance Results * HOT WORT SETTLER THIN PREP PAP SCREEN IMAGED (11/17/2019 11:15 AM CDT) Case Report Gynecologic Cytology Report ? Case: [id number] ? Authorizing Provider: ??Allyson Musa MD ??Collected: ? 11/17/2019 1115 ? Ordering Location: ? [facility] ?Received: ?11/18/2019 1125 ? First Screen: ?Tiffani Jain ? Specimen: ?HOT WORT SETTLER ThinPrep Vial Screening, Cervical/Vaginal ? 11/28/2019 11:34 AM [facility] INTERPRETATION/ RESULT NEGATIVE FOR INTRAEPITHELIAL LESION OR MALIGNANCY (NIL) (none) 11/28/2019 11:34 AM [facility] IMEN ADEQUACY Satisfactory for evaluation Endocervical cells cannot be evaluated due to severe atrophy 11/28/2019 11:34 AM [facility] HPV REQUEST HPV and PAP 11/28/2019 11:34 AM [facility] Additional Information 11/28/2019 11:34 AM [facility] Comment: Interpreted at [facility] Central Laboratory - [address], [place] [address] Automated Review Successful 11/28/2019 11:34 AM [facility] Comment:Specimen processed s uccessfully by automated conductor pullman device, ThinPrep Imaging System, [employer] ANCILLARY TESTING HOT WORT SETTLER HPV Ordered, Please see separate report 11/28/2019 11:34 AM [facility] Note The pap test is a screening technique, not a diagnostic procedure. It is used primarily to screen for squamous cancers and precursor lesions. Published studies have shown that it is subject to both false negative and false positive results. The pap test should not be used as the sole means to diagnose or exclude pre-malignant and malignant lesions. 11/28/2019 11:34 AM CDT [facility] Other (Cervical/Vagina l) 11/17/2019 11:15 AM CDT 11/18/2019 11:25 AM CDT Allyson Musa MD PATHOLOGY/CYTOLO GY [facility] [address] [place] [address], * SCAN-MAMMOGRAPHY REPORT (04/09/2016 12:00 AM BRANCH SERVICE SPECIALIST) Anatomical Region Laterality Modality Other Scanner OTHER * (ABNORMAL) LIPID PANEL W REFLEX MEASURED LDL (10/27/2015 9:52 AM CDT) CHOLESTEROL,TOTAL 191 100 - 199 mg/dL 10/27/2015 10:21 AM CDT [facility] TRIGLYCERIDES 178(H) <150 mg/dL 10/27/2015 10:21 AM CDT [facility] HDL CHOLESTEROL 48 >40 mg/dL 10/27/2015 10:21 AM CDT [facility] NON-HDL CHOLESTEROL 143 <145 mg/dl 10/27/2015 10:21 AM CDT [facility] CHOL/HDL RATIO 3.98 <4.50 10/27/2015 10:21 AM CDT [facility] LDL CHOLESTEROL 107 <=130 mg/dL 10/27/2015 10:21 AM CDT [facility] PATIENT STATUS FASTING 10/27/2015 10:21 AM CDT [facility] Blood BLOOD SPECIMEN / Unknown Venipuncture / Unknown 10/27/2015 9:52 AM CDT 10/27/2015 9:52 AM CDT Nancy Merino MD CHEMISTRY [facility] [address] [place] [address], [place] [phone] from Last 3 Months or Most Recently Relevant to Health Maintenance Advance Directives Documents on File Type Date Recorded Patient Escrow Assistant Expl anation Healthcare Directive 05/09/2005 HEALTH CARE DIRECTIVE, [facility], 05/09/05 * Full Code (Latest Code Status on File) Date Activated Date Inactivated Comments 04/14/2012 6:39 PM 04/15/2012 2:11 PM * Full Code Date Activated Date Inactivated Comments 04/14/2012 12:15 PM 04/14/2012 6:39 PM Care Teams Diversified Crops Ii Farmworker Relationship Specialty Start Date End Date Allyson Musa MD [address] [place] [address] PCP - General Family Practice 09/27/22
--- OUTSIDE RECORDS SUMMARY | 2023-12-07 02:45 | XMS_ITS | Referral Summary ---
Author Organization [facility] Address [address] [place] [address] Care Team Providers Care Finance Consultant Name Role Phone Allyson Musa MD Primary [...] Take 1 capsule by mouth daily Active [place]-3 Fatty Acids (FISH OIL) 1200 MG capsule [...] Comments Blood Pressure 152/94 03/04/2019 10:46 AM BRICK KILN BURNER Pulse 53 03/04/2019 9:32 AM BRICK KILN BURNER Temperature 36.1 ??C (96.9 ??F) 03/04/2019 10:[address] Respiratory Rate 12 03/04/2019 10:46 AM BRICK KILN BURNER Oxygen Saturation 97% 03/04/2019 10:46 AM BRICK KILN BURNER Inhaled Oxygen Concentration - - Weight 85.7 kg (189 lb) 03/04/2019 6:16 AM BRICK KILN BURNER Height 163.2 cm (5' 4.25) 03/04/2019 6:16 AM CS T Body Mass Index 32.19 03/04/2019 6:16 AM BRICK KILN BURNER Plan of Treatment Not on file Medical Devices Implanted Type Area Bag Filler Device Identifier Shelf Expiration Date Model / Serial / Lot Mesh Sling Advantage Mid-Uretheral Blue [id number] Implanted:Qty : 1 on 03/04/2019 by Mariana Barbosa MD at [facility] Mesh N/A: Urethra [employer] [id number] 10/14/2021 [id number] 50 / / [id number] Advance Directives For more information, please contact: [phone] * Full Code (Latest Code Status on File) Date Activated Date Inactivated Comments 03/04/2019 8:31 AM Question Answer Comments Code status determined by: Other (please documen t) Care Teams Finance Consultant Relationship Specialty Start Date End Date Allyson Musa MD [facility] & [address] [address] PCP - General Family Practice 02/10/19
--- OUTSIDE RECORDS SUMMARY | 2023-12-07 02:45 | XMS_ITS | Patient Health Record ---
Author Organization [facility] Address [address] [place] [address] Support Name Relationship Address Phone KENAbena NEERAJ Guarantor Unknown [phone] Reason For Referral No Information Medications Medication SIG (Take, Route, Frequency, Duration) Notes [...] Once a day for 30 day(s) Active [place] 3 1200 MG 1 capsule Orally Once a day for 30 day(s) Active Probiotic - as directed Orally daily Active Omeprazole 20 MG 1 capsule Orally Once a day for 30 day(s) Active Social History Tobacco Use: Social History Observation Description Date Details (start date - stop date) Never Smoker NA - NA Tobacco Use/Smoking Question Answer Notes Are you a nonsmoker Problems Problem Type SNOMED Code ICD Code Onset Dates Problem Status W/U Status Risk Notes Problem 084770219 Overactive bladder (N32.81) Active confirmed Problem 236290183 Cystocele, midline (N81.11) Active confirmed Problem 335210028 Rectocele (N81.6) Active confirmed Problem 46817446 Stress incontinence (N39.3) Active confirmed Problem 943141402 Mixed stress and urge urinary incontinence (N39.46) Active confirmed Problem Mixed incontinence (497276020) Mixed urge and stress incontinence (N39.46) Active confirmed Plan Of Treatment No Information Insurance Providers Payer Name Payer Address Payer Phone Subscriber Number Group Number Insured Name Patient Relationship to Insured Coverage Start Date Coverage End Date Medica2 IFB (PayerI D [id number]) (Ins. Bill) [address] [place], [place] [id number] [id number] NEERAJ CHAVEZ Self - patient is the insured Medical (General) History Medical History History ICD Code HTN hx [...]
== END 2023-12-05 09:56 | disposition home or self-care (01) ==
LOC: NFLDREF 12-07 02:43
PROVIDERS: PCP Family Medicine; Referring Provider Family Medicine; Visit Provider Family Medicine
DX: E78.5 Hyperlipidemia, unspecified (principal); I10 Essential (primary) hypertension; R73.03 Prediabetes
CPT/HCPCS: 80053; 80061

== ENCOUNTER 2024-01-29 12:52 | Outpatient (CLI) | payer MEDICARE, BC, SELFPAY ==
--- OUTSIDE RECORDS SUMMARY | 2024-01-29 12:54 | XMS_ITS | Patient Health Record ---
Author Organization [facility] Address [address] [place] [address] Support Name Relationship Address Phone KENAbena NEERAJ Guarantor Unknown [phone] Reason For Referral No Information Medications Medication [...] Once a day for 30 day(s) Active [place] 3 1200 MG 1 capsule Orally Once [...] Problem Status W/U Status Risk Notes Problem 157948975 Overactive bladder (N32.81) Active confirmed Problem 919017188 Cystocele, midline (N81.11) Active confirmed Problem 538063359 Rectocele (N81.6) Active confirmed Problem 78002132 Stress incontinence (N39.3) Active confirmed Problem 240335988 Mixed stress and urge urinary incontinence (N39.46) Active confirmed Problem Mixed incontinence (035476160) Mixed urge and stress incontinence (N39.46) Active confirmed Plan Of Treatment No Information Insurance Providers Payer Name Payer Address Payer Phone Subscriber Number Group Number Insured Name Patient Relationship to Insured Coverage Start Date Coverage End Date Medica2 IFB (PayerI D [id number]) (Ins. Bill) [address] [place], [place] [id number] [id number] NEERAJ CHAVEZ Self - patient is [...]
--- OUTSIDE RECORDS SUMMARY | 2024-01-29 12:54 | XMS_ITS | Clinical Summary ---
Author Organization [facility] Address [address] [place] [address] Care Team Providers Care Tool And Die Designer Name Role Phone Allyson Musa MD Primary Care Provider + Allergies No known active allergies Medications hydrochlorothiazi de (HYDRODIURIL) 25 MG tablet Take 25 mg [...] Take 1 capsule by mouth daily Active Singer-3 Fatty Acids (FISH OIL) 1200 MG capsule Take 1,200 mg by mouth daily Active Plant Sterols and Stanols (CHOLESTOFF PLUS PO) Take by mouth daily Active psyllium (METAMUCIL/KONSYL ) 58.6 % powder Take by mouth daily Active acetaminophen (TYLENOL) 650 MG CR tabletIndications :Stress incontinence Take 1 tablet (650 mg) by mouth every 8 hours as needed for pain 30 tablet 9 Active ibuprofen (ADVIL/MOTRIN) 600 MG tabletIndications :Stress incontinence Take 1 tablet (600 mg) by mouth every 6 hours as needed for pain 30 tablet 9 Active Social History Tobacco Use Types Packs/Day Years Used Date Smoking Tobacco: Never Smokeless Tobacco: Never Alcohol Use Standard Drinks/Week Comments Yes 0 (1 standard drink = 0.6 oz pur e alcohol) occas Comments No Sex and Gender Information Value Date Recorded Sex Assigned at Not on file Legal Sex Female 10:52 AM CDT Gender Identity Not on file Sexual Orientation Not on file Last Filed Vital Signs Vital Sign Reading Time Taken Comments Blood Pressure 152/94 03/04/2019 10:46 AM LIFE ENRICHMENT MANAGER Pulse 53 03/04/2019 9:32 AM LIFE ENRICHMENT MANAGER Temperature 36.1 ??C (96.9 ??F) 03/04/2019 10:[address] Respiratory Rate 12 03/04/2019 10:46 AM LIFE ENRICHMENT MANAGER Oxygen Saturation 97% 03/04/2019 10:46 AM LIFE ENRICHMENT MANAGER Inhaled Oxygen Concentration - - Weight 85.7 kg (189 lb) 03/04/2019 6:16 AM LIFE ENRICHMENT MANAGER Height 163.2 cm (5' 4.25) 03/04/2019 6:16 AM CS T Body Mass Index 32.19 03/04/2019 6:16 AM LIFE ENRICHMENT MANAGER Plan of Treatment Not on file Medical Devices Implanted Type Area Clothes Marker Device Identifier Shelf Expiration Date Model / Serial / Lot Mesh Sling Advantage Mid-Uretheral Blue [id number] Implanted:Qty : 1 on 03/04/2019 by Mariana Barbosa MD at [facility] Mesh N/A: Urethra [employer] [id number] 10/14/2021 [id number] 50 / / [id number] Advance Directives For more information, please contact: [phone] * Full Code (Latest Code Status on File) Date Activated Date Inactivated Comments 03/04/2019 8:31 AM Question Answer Comments Code status determined by: Other (please documen t) Care Teams Tool And Die Designer Relationship Specialty Start Date End Date Allyson Musa MD [facility] & [address] [address] PCP - General Family Practice 02/10/19
--- OUTSIDE RECORDS SUMMARY | 2024-01-29 12:54 | XMS_ITS | Referral Summary ---
Author Organization [facility] Address [address] [place] [address] Care Team Providers Care Cotton Ball Machine Tender Name Role Phone Allyson Musa MD Primary [...] Take 1 capsule by mouth daily Active [place]-3 Fatty Acids (FISH OIL) 1200 MG capsule [...] Comments Blood Pressure 152/94 03/04/2019 10:46 AM AGRONOMY LOCATION MANAGER Pulse 53 03/04/2019 9:32 AM AGRONOMY LOCATION MANAGER Temperature 36.1 ??C (96.9 ??F) 03/04/2019 10:[address] Respiratory Rate 12 03/04/2019 10:46 AM AGRONOMY LOCATION MANAGER Oxygen Saturation 97% 03/04/2019 10:46 AM AGRONOMY LOCATION MANAGER Inhaled Oxygen Concentration - - Weight 85.7 kg (189 lb) 03/04/2019 6:16 AM AGRONOMY LOCATION MANAGER Height 163.2 cm (5' 4.25) 03/04/2019 6:16 AM CS T Body Mass Index 32.19 03/04/2019 6:16 AM AGRONOMY LOCATION MANAGER Plan of Treatment Not on file Medical Devices Implanted Type Area Sales Program Coordinator Device Identifier Shelf Expiration Date Model / Serial / Lot Mesh Sling Advantage Mid-Uretheral Blue [id number] Implanted:Qty : 1 on 03/04/2019 by Mariana Barbosa MD at [facility] Mesh N/A: Urethra [employer] [id number] 10/14/2021 [id number] 50 / / [id number] Advance Directives For more information, please contact: [phone] * Full Code (Latest Code Status on File) Date Activated Date Inactivated Comments 03/04/2019 8:31 AM Question Answer Comments Code status determined by: Other (please documen t) Care Teams Cotton Ball Machine Tender Relationship Specialty Start Date End Date Allyson Musa MD [facility] & [address] [address] PCP - General Family Practice 02/10/19
--- OUTSIDE RECORDS SUMMARY | 2024-01-29 12:54 | XMS_ITS | Clinical Summary ---
Author Organization [facility] Address [place], [place] [address] Care Team Providers Care Sanitation Worker Cleaning Machinery Name Role Phone Allyson Musa MD Primary [...] by mouth at bedtime. 0 10/21/2012 Active Riggins-3 Fatty Acids-Vitamin E 2,000-650-12 mg/2.5 gram elpk [...] 1 Heart Disease Father at 70 of [place] Heart Disease Mother at 70 of heart attack Heart Disease Sister 1 stent age late 50s Diabetes Sister 2 3 sibs with dm Cancer-breast Sister 3 63, doing well Cancer-colon No Family History Relation Name Status Comments Brother 1 (Age 67) massive RI Brother 2 (Age 52) of me ningitis Father (Age 70) RI Mother (Age 70) RI Sister 1 Sister 2 Sister 3 Social [...] T Respiratory Rate 16 04/15/2012 8:00 AM FENCE ERECTOR SUPERVISOR Oxygen Saturation 100% 08/05/2022 8:50 AM CDT [...] 1 - PCV) 2023 COVID-19 vaccine series (2023-25 season) 2023 12/18/2021, 09/26/2021, 02/14/2021, Additional history exists Influenza for age 65+ 11/16/2023 02/01/2016 , 12/30/2012, 12/17/2011, Additional history exists Colonoscopy through age 75 04/26/202404/26, 2014, 01/05/2009 Tdap Completed 10/15/2010 Procedures Procedure Name Priority Date/Time Associated Diagnosis Comments FISH AND WILDLIFE SCIENTIFIC AID THIN PREP PAP SCREEN IMAGED Routine 11/17/2019 11:15 AM CDT SCAN-MAMMOGRAPHY REPORT 04/09/2016 12:00 AM FENCE ERECTOR SUPERVISOR LIPID PANEL W REFLEX MEASURED LDL Routine 10/27/2015 9:52 AM CDT Essential hypertension with goal blood pressure less than 140/90 from Last 3 Months or Most Recently Relevant to Health Maintenance Results * FISH AND WILDLIFE SCIENTIFIC AID THIN PREP PAP SCREEN IMAGED (11/17/2019 11:15 AM CDT) Case Report Gynecologic Cytology Report ? Case: [id number] ? Authorizing Provider: ??Allyson Musa MD ??Collected: ? 11/17/2019 1115 ? Ordering Location: ? [facility] ?Received: ?11/18/2019 1125 ? First Screen: ?Tiffani Jain ? Specimen: ?FISH AND WILDLIFE SCIENTIFIC AID ThinPrep Vial Screening, Cervical/Vaginal ? 11/28/2019 11:34 AM [facility] INTERPRETATION/ RESULT NEGATIVE FOR INTRAEPITHELIAL LESION OR MALIGNANCY (NIL) (none) 11/28/2019 11:34 AM [facility] IMEN ADEQUACY Satisfactory for evaluation Endocervical cells cannot be evaluated due to severe atrophy 11/28/2019 11:34 AM [facility] HPV REQUEST HPV and PAP 11/28/2019 11:34 AM [facility] Additional Information 11/28/2019 11:34 AM [facility] Comment: Interpreted at [facility] - [address], [place] [address] Automated Review Successful 11/28/2019 11:34 AM [facility] Comment:Specimen processed s uccessfully by automated flatware maker device, ThinPrep Imaging System, [employer] ANCILLARY TESTING FISH AND WILDLIFE SCIENTIFIC AID HPV Ordered, Please see separate report 11/28/2019 11:34 AM [facility] Note The pap test is a [...] and malignant lesions. 11/28/2019 11:34 AM CDT [facility] Other (Cervical/Vagina l) 11/17/2019 11:15 AM CDT 11/18/2019 11:25 AM CDT Allyson Musa MD PATHOLOGY/CYTOLO GY [facility] [address] [place] [address], * SCAN-MAMMOGRAPHY REPORT (04/09/2016 12:00 AM FENCE ERECTOR SUPERVISOR) Anatomical Region Laterality Modality Other Scanner OTHER * (ABNORMAL) LIPID PANEL W REFLEX MEASURED LDL (10/27/2015 9:52 AM CDT) CHOLESTEROL,TOTAL 191 100 - 199 mg/dL 10/27/2015 10:21 AM CDT [facility] TRIGLYCERIDES 178(H) <150 mg/dL 10/27/2015 10:21 AM CDT [facility] HDL CHOLESTEROL 48 >40 mg/dL 10/27/2015 10:21 AM CDT [facility] NON-HDL CHOLESTEROL 143 <145 mg/dl 10/27/2015 10:21 AM CDT [facility] CHOL/HDL RATIO 3.98 <4.50 10/27/2015 10:21 AM CDT [facility] LDL CHOLESTEROL 107 <=130 mg/dL 10/27/2015 10:21 AM CDT [facility] PATIENT STATUS FASTING 10/27/2015 10:21 AM CDT [facility] Blood BLOOD SPECIMEN / Unknown Venipuncture / Unknown 10/27/2015 9:52 AM CDT 10/27/2015 9:52 AM CDT Nancy Merino MD CHEMISTRY [facility] [address] [place] [address], [place] [phone] from Last 3 Months or Most Recently Relevant to Health Maintenance Advance Directives Documents on File Type Date Recorded Patient Sales Service Executive Expl anation Healthcare Directive 05/09/2005 HEALTH CARE DIRECTIVE, [facility], 05/09/05 * Full Code (Latest Code Status on File) Date Activated Date Inactivated Comments 04/14/2012 6:39 PM 04/15/2012 2:11 PM * Full Code Date Activated Date Inactivated Comments 04/14/2012 12:15 PM 04/14/2012 6:39 PM Care Teams Sanitation Worker Cleaning Machinery Relationship Specialty Start Date End Date Allyson Musa MD [address] [place] [address] PCP - General Family Practice 09/27/22
--- NOTE | 2024-01-29 13:00 | CRLHL7_ITS ---
For Patients: As a result of the Century Cures Act, medical imaging exams and procedure reports are released immediately into your electronic medical record. You may view this report before your referring provider. If you have questions, please contact your health care provider. DXA BONE MINERAL DENSITY STUDY Current height (in): 64.5. Weight (lb): 197. Menopause age: 48. Ethnicity: White. 1. Have you had a previous hip or vertebral fracture? No. 2. Have you had any fractures during your adult life which did not result from significant trauma (e.g., auto accident)? Yes. 3. Did either of your parents have a hip fracture? No. 4. Do you smoke? No. 5. Have you ever taken Glucocorticoids? No. 6. Do you have rheumatoid arthritis? No. 7. Do you have secondary osteoporosis? No. 8. Do you drink 3 or more alcoholic drinks per day? No. 9. Are you being treated for osteoporosis? No. 10. Have you ever taken any of the following medications: Actonel, Evista, Fosamax, Miacalcin, Reclast, Boniva, Forteo, HRT (i.e. estrogen/hormone therapy), Protelos, Prolia, Vitamin D, Calcium, other ??? please specify. ANSWER: Yes, vitamin D, calcium. 11. Do you have any of the following medical conditions: Anorexia or bulimia, asthma or emphysema, end stage renal disease, hyperparathyroidism, any seizure disorders, cancer, inflammatory bowel diseases, hysterectomy, other ??? please specify. ANSWER: No. 12. What was your maximum height (inches)? 65. 13. Do you perform weight bearing exercise regularly? Yes. 14. Do you regularly consume dairy products? Yes. 15. Do you drink caffeinated beverages? Yes. 16. At what age did your period start? 8. 17. Are you premenopausal? No. 18. How many full term pregnancies have you had? 3. 19. Have you ever missed your period for more than 6 months in a row (not including or menopause)? No. TECHNIQUE: Bone mineral density study was performed using the Stem. FINDINGS: The results of the study expressed as bone mineral density (BMD) are as follows: Lumbar spine L3 to L4: BMD: 1.112 g/cm2. T-score: 0.1. Z-score: 2.0. Neck Left: BMD: 0.852 g/cm2. T-score: 0.0. Z-score: 1.6. Right: BMD: 0.839 g/cm2. T-score: -0.1. Z-score: 1.5. Total Left: BMD: 1.011 g/cm2. T-score: 0.6. Z-score: 1.8. Right: BMD: 0.963 g/cm2. T-score: 0.2. Z-score: 1.4. IMPRESSION: Normal bone density. *Comparison exams done prior to 08/2019 were performed on different unit, [employer]. Richard Ospina M.D. Diagnostic Radiologist [email or web address] MALLIKA/Dictated by: Richard Ospina MD @ 01/30/2024 1:20:00 PM (Electronically Signed)
== END 2024-01-29 12:53 | disposition home or self-care (01) ==
LOC: RAD 12:53
PROVIDERS: PCP Family Medicine; Visit Provider Family Medicine
DX: Z78.0 Asymptomatic menopausal state (principal)
CPT/HCPCS: 77080

== ENCOUNTER 2024-03-08 09:58 | Outpatient (CLI) | payer MEDICARE, BC, SELFPAY | END 2024-03-08 09:59 | disposition home or self-care (01) | LOC: NFLDREF 18:13 | PROVIDERS: PCP Family Medicine; Referring Provider Family Medicine; Visit Provider Family Medicine | DX: D64.9 Anemia, unspecified (principal); I10 Essential (primary) hypertension; R73.03 Prediabetes; E78.5 Hyperlipidemia, unspecified; R53.83 Other fatigue; F32.1 Major depressive disorder, single episode, moderate; Z13.29 Encounter for screening for other suspected endocrine disorder; E66.9 Obesity, unspecified | CPT/HCPCS: 80061; 82607; 82728; 84443 ==

== ENCOUNTER 2024-03-22 06:12 | Day surgery (SDC) | payer MEDICARE, BC, SELFPAY ==
[2024-03-22] VITALS (20 sets, daily range): BP systolic 89–180; BP diastolic 50–87; PULSE 48–66; RESP 16–20; TEMP 36.1–36.8; O2SAT 94–99; BMI 32.8
--- OUTSIDE RECORDS SUMMARY | 2024-03-22 06:16 | XMS_ITS | Continuity of Care Document ---
Author Name [facility]IN User JanaeleMN-a llowed Address Unknown Organization Unknown Address Unknown Procedures FILTER APPLIED:Only known Procedures with Onset Date within the last 5 years Procedure Date Procedure Provider Additiona l Information Status BREAST TOMOSYNTHESIS BI (58839) Completed SCR MAMMO BI INCL CAD (37393) Completed MRI NECK SPINE W/O DYE (66006) Completed NEUROMUSCULAR REEDUCATION (21233) Completed PT RE-EVAL EST PLAN CARE (72160) Completed METABOLIC PANEL TOTAL CA (68926) Completed ASSAY OF IRON (26882) Co mpleted THERAPEUTIC ACTIVITIES (25519) Completed OT EVAL LOW COMPLEX 30 MIN (77109) Completed PT EVAL LOW COMPLEX 20 MIN (12904) Completed GAIT TRAINING THERAPY (43052) Completed THERAPEUTIC EXERCISES (03926) Completed IRON BINDING TEST (61456) Completed BLOOD CULTURE FOR BACTERIA (60602) Completed CULTURE SCREEN ONLY (30260) Completed C DIFF AMPLIFIED PROBE (79261) Completed URINALYSIS AUTO W/SCOPE (10895) Completed C-REACTIVE PROTEIN (46928) Completed ASSAY OF LACTIC ACID (28355) Completed ASSAY OF MAGNESIUM (91717) Completed ROUTINE VENIPUNCTURE (94507) Completed X-RAY EXAM ABDOMEN 2 VIEWS (60652) Completed CT ABD PELV W/CONTRAST (60677) Completed METABOLIC PANEL TOTAL CA (19400) Completed COMPLETE CBC W/AUTO DIFF WBC (83355) Completed EMERGENCY DEPT VISIT HI MDM (60927) Completed THERAPEUTIC EXERCISES (67805) Completed ARTHRP KNE CONDYLEANDPLATU MEDIALANDLAT COMPARTMENTS (25662) Completed ANESTH KNEE ARTHROPLASTY (37782) Completed PT EVAL LOW COMPLEX 20 MIN (03191) Completed X-RAY EXAM OF KNEE 1 OR 2 (20983) Completed GAIT TRAINING THERAPY (42249) Completed ECHO GUIDE FOR BIOPSY (79435) Completed THERAPEUTIC EXERCISES (42975) Completed PT EVAL LOW COMPLEX 20 MIN (06583) Completed COMPREHEN METABOLIC PANEL (48080) Completed LIPID PANEL (33264) Comp leted Encounters FILTER APPLIED:Only known Encounters with Admission Date within the last 5 years Encounter Location Admission Discharge Billing Code Filing Machine Operator A ulysses Outpatient [facility] [id number] Abim[facility]
--- OUTSIDE RECORDS SUMMARY | 2024-03-22 06:16 | XMS_ITS | Patient Health Record ---
Author Organization [facility] Address [address] [place] [address] Support Name Relationship Address Phone KENAbena NEERAJ Guarantor Unknown [phone] Reason For Referral No Information Medications Medication [...] Once a day for 30 day(s) Active [place] 3 1200 MG 1 capsule Orally Once a day for 30 day(s) Active Probiotic - as directed Orally daily Active Omeprazole 20 MG 1 capsule Orally Once a day for 30 day(s) Active Social History Tobacco Use: Social History Observation Description Date Details (start date - stop date) Never Smoker NA - NA Tobacco Use/Smoking Question Answer Notes Are you a nonsmoker Section Notes: Exercise: walking 5-7 times per week for at least 30 minutes Exercise: walking 5-7 times per week for at least 30 minutes Exercise: walking 5-7 times per week for at least 30 minutes Exercise: walking 5-7 times per week for at least 30 minutes Problems Problem Type SNOMED Code ICD Code Onset Dates Problem Status W/U Status Risk Notes Problem 284405247 Overactive bladder (N32.81) Active confirmed Problem 950091730 Cystocele, midline (N81.11) Active confirmed Problem 381399934 Rectocele (N81.6) Active confirmed Problem 65977078 Stress incontinence (N39.3) Active confirmed Problem 769195409 Mixed stress and urge urinary incontinence (N39.46) Active confirmed Problem Mixed incontinence (430154448) Mixed urge and stress incontinence (N39.46) Active confirmed Plan Of Treatment No Information Insurance Providers Payer Name Payer Address Payer Phone Subscriber Number Group Number Insured Name Patient Relationship to Insured Coverage Start Date Coverage End Date Medica2 IFB (PayerI D [id number]) (Ins. Bill) [address] [place], [place] [phone] [id number] IFB NEERAJ CHAVEZ Self - patient is [...]
--- OUTSIDE RECORDS SUMMARY | 2024-03-22 06:16 | XMS_ITS | Clinical Summary ---
Author Organization [facility] Address [address] [place] [address] Care Team Providers Care Commercial Baker Helper Name Role Phone Allyson Musa MD Primary [...] Take 1 capsule by mouth daily Active [place]-3 Fatty Acids (FISH OIL) 1200 MG capsule [...] Comments Blood Pressure 152/94 03/04/2019 10:46 AM QUARTER SUPERVISOR Pulse 53 03/04/2019 9:32 AM QUARTER SUPERVISOR Temperature 36.1 C (96.9 F) 03/04/2019 10:46 AM QUARTER SUPERVISOR Respiratory Rate 12 03/04/2019 10:46 AM QUARTER SUPERVISOR Oxygen Saturation 97% 03/04/2019 10:46 AM QUARTER SUPERVISOR Inhaled Oxygen Concentration - - Weight 85.7 kg (189 lb) 03/04/2019 6:16 AM QUARTER SUPERVISOR Height 163.2 cm (5' 4.25) 03/04/2019 6:16 AM CS T Body Mass Index 32.19 03/04/2019 6:16 AM QUARTER SUPERVISOR Plan of Treatment Not on file Medical Devices Implanted Type Area Fish Pitcher Device Identifier Shelf Expiration Date Model / Serial / Lot Mesh Sling Advantage Mid-Uretheral Blue [id number] Implanted:Qty : 1 on 03/04/2019 by Mariana Barbosa MD at [facility] Mesh N/A: Urethra [employer] [id number] 10/14/2021 [id number] / / [id number] Advance Directives For more information, please contact: [phone] * Full Code (Latest Code Status on File) Date Activated Date Inactivated Comments 03/04/2019 8:31 AM Question Answer Comments Code status determined by: Other (please rosario t) Care Teams Commercial Baker Helper Relationship Specialty Start Date End Date Allyson Musa MD [facility] & [address] [address] PCP - General Family Practice 02/10/19
--- OUTSIDE RECORDS SUMMARY | 2024-03-22 06:16 | XMS_ITS | Referral Summary ---
Author Organization [facility] Address [address] [place] [address] Care Team Providers Care Combination Operator Name Role Phone Allyson Musa MD [...] Take 1 capsule by mouth daily Active Cornish Flat-3 Fatty Acids (FISH OIL) 1200 MG capsule [...] Comments Blood Pressure 152/94 03/04/2019 10:46 AM DEICER REPAIRER PNEUMATIC Pulse 53 03/04/2019 9:32 AM DEICER REPAIRER PNEUMATIC Temperature 36.1 C (96.9 F) 03/04/2019 10:46 AM DEICER REPAIRER PNEUMATIC Respiratory Rate 12 03/04/2019 10:46 AM DEICER REPAIRER PNEUMATIC Oxygen Saturation 97% 03/04/2019 10:46 AM DEICER REPAIRER PNEUMATIC Inhaled Oxygen Concentration - - Weight 85.7 kg (189 lb) 03/04/2019 6:16 AM DEICER REPAIRER PNEUMATIC Height 163.2 cm (5' 4.25) 03/04/2019 6:16 AM CS T Body Mass Index 32.19 03/04/2019 6:16 AM DEICER REPAIRER PNEUMATIC Plan of Treatment Not on file Medical Devices Implanted Type Area Billing Services Manager Device Identifier Shelf Expiration Date Model / Serial / Lot Mesh Sling Advantage Mid-Uretheral Blue [id number] Implanted:Qty : 1 on 03/04/2019 by Mariana Barbosa MD at [facility] Mesh N/A: Urethra [employer] [id number] 10/14/2021 [id number] / / [id number] Advance Directives For more information, please contact: [phone] * Full Code (Latest Code Status on File) Date Activated Date Inactivated Comments 03/04/2019 8:31 AM Question Answer Comments Code status determined by: Other (please rosario t) Care Teams Combination Operator Relationship Specialty Start Date End Date Allyson Musa MD [facility] & [address] [address] PCP - General Family Practice 02/10/19
--- OUTSIDE RECORDS SUMMARY | 2024-03-22 06:16 | XMS_ITS | Clinical Summary ---
Author Organization [employer] [employer] [facility] Address [place], [place] [address] Care Team Providers Care Floor Covering Layer Name Role Phone Allyson Musa MD Primary Care Provider + Allergies No known active allergies Medications PRILOSEC 20 MG CAP take 1 capsule (20 mg) by oral route once daily before a meal 0 7 Active MULTIVITAMIN TAB take 1 tablet by oral route once daily with food 0 7 Active ASPIRIN 81 MG TAB, DELAYED RELEASEIndicatio ns:Unspecified essential hypertension take 1 tablet (81 mg) by oral route once daily 0 7 Active Ferrous Sulfate (IRON) 27 mg (Iron) Tab Take by mouth. 1 daily 0 0 Active cholecalciferol (VITAMIN D) 1,000 unit tablet Take 1 tablet by mouth once daily. 0 1 Active calcium 600 mg capsule Take 1 capsule by mouth once daily. daily 0 1 Active glucosamine-isi droit-vit c-mn (GLUCOSAMINE CHONDROITIN MAXSTR) 500-400 mg cap 1 twice daily. 0 3 Active melatonin 1 mgIndications:Ro utine general medical examination at a health care facility Take 1 tablet by mouth at bedtime. 0 3 Active Hanna-3 Fatty Acids-Vitamin E 2,000-650-12 mg/2.5 gram elpk Take by mouth once daily. 0 6 Active atenolol (TENORMIN) 25 mg tabletIndication s:Essential hypertension with goal blood pressure less than 140/90 Take 1 tablet by mouth once daily. 90 tablet 4 6 Active diphenhydrAMINE- acetaminophen 25-500 mg (TYLENOL PM EXTRA STRENGTH) 25-500 mg tablet Take 1 tablet by mouth at bedtime if needed. Take tablet at bedtime 0 6 Active medication order composer Turmeric 720 mg takes 1 tablet daily 0 6 Active medication order composer Probiotic acidophilus takes 39.5 mg 1 tablet daily 0 6 Active hydrochlorothiaz darrin (HCTZ) 25 mg tabletIndication s:Essential hypertension, hypertension with unspecified goal TAKE 1 TABLET BY MOUTH ONCE DAILY 90 tablet 3 6 Active trospium 60 mg Extended-Release capsule Take 60 mg by mouth. 3 Active rosuvastatin (CRESTOR) 5 mg tablet TAKE 1 TABLET BY MOUTH EVERYDAY AT BEDTIME 3 Active Active Problems Problem Noted Date Diagnosed [...] 1 Heart Disease Father at 70 of MS Heart Disease Mother at 70 of heart attack Heart Disease Sister 1 stent age late 50s Diabetes Sister 2 3 sibs with dm Cancer-breast Sister 3 63, doing well Cancer-colon No Family History Relation Name Status Comments Brother 1 (Age 67) massive MS Brother 2 (Age 52) of me ningitis Father (Age 70) MS Mother (Age 70) MS Sister 1 Sister 2 Sister 3 Social History Tobacco Use Types Packs/Day Years Used Date Smoking Tobacco: Never Smokeless Tobacco: Never Tobacco Cessation:Counseling Given: No Alcohol Use Standard Drinks/Week Comments Yes 0 (1 standard drink = 0.6 oz pur e alcohol) Social Connections Answer Date Recorded Frequency of Communication with Friends and Fami ly Not on file 08/05/2022 Comments No Sex and Gender Information Value Date Recorded Sex Assigned at Not on file Legal Sex Female 5:25 AM NITROCELLULOSE OPERATOR Gender Identity Not on file Sexual Orientation Not on file 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 Not on file Not on file Not on file Obstetrics History Last Filed Vital Signs Vital Sign Reading Time Taken Comments Blood Pressure 143/88 08/05/2022 8:50 AM CDT Pulse 63 08/05/2022 8:50 AM CDT Temperature 36.6 C (97.8 F) 08/05/2022 8:50 AM CDT Respiratory Rate 16 04/15/2012 8:00 AM NITROCELLULOSE OPERATOR Oxygen Saturation 100% 08/05/2022 8:50 AM CDT [...] age 65+ 2023 Pneumococcal series for age 50+ (1 of 1 - PCV) 2023 COVID-19 vaccine series (2023- season) 2023 12/18/2021, 09/26/2021, 02/14/2021, Additional history exists Influenza for age 65+ 11/16/2023 02/01/2016 , 12/30/2012, 12/17/2011, Additional history exists Colonoscopy through age 75 04/26/202404/26, 2014, 01/05/2009 RSV vaccine for adults or (1 - 1-dose 75+ series) 2033 Tdap Completed 10/15/2010 Procedures Procedure Name Priority Date/Time Associated Diagnosis Comments VICE PRESIDENT CONSULTING SERVICES THIN PREP PAP SCREEN IMAGED Routine 11/17/2019 11:15 AM CDT SCAN-MAMMOGRAPHY REPORT 04/09/2016 12:00 AM NITROCELLULOSE OPERATOR LIPID PANEL W REFLEX MEASURED LDL Routine 10/27/2015 9:52 AM CDT Essential hypertension with goal blood pressure less than 140/90 from Last 3 Months or Most Recently Relevant to Health Maintenance Results * VICE PRESIDENT CONSULTING SERVICES THIN PREP PAP SCREEN IMAGED (11/17/2019 11:15 AM CDT) Case Report Gynecologic Cytology Report Case: [id number] Authorizing Provider: Allyson Musa MD Collected: 11/17/2019 1115 Ordering Location: [facility] Received: 11/18/2019 1125 First Screen: Tiffani Jain Specimen: VICE PRESIDENT CONSULTING SERVICES ThinPrep Vial Screening, Cervical/Vaginal 11/28/2019 11:34 AM CDT [facility] INTERPRETATION/ RESULT NEGATIVE FOR INTRAEPITHELIAL LESION OR MALIGNANCY (NIL) (none) 11/28/2019 11:34 AM CDT [facility] IMEN ADEQUACY Satisfactory for evaluation Endocervical cells cannot be evaluated due to severe atrophy 11/28/2019 11:34 AM CDT [facility] HPV REQUEST HPV and PAP 11/28/2019 11:34 AM CDT [facility] Additional Information 11/28/2019 11:34 AM CDT [facility] Comment: Interpreted at [facility] - [address], [place] [address] Automated Review Successful 11/28/2019 11:34 AM CDT [facility] Comment:Specimen processed s uccessfully by automated regional branch manager device, ThinPrep Imaging System, [employer] ANCILLARY TESTING VICE PRESIDENT CONSULTING SERVICES HPV Ordered, Please see separate report 11/28/2019 11:34 AM CDT [facility] Note The pap test is a [...] and malignant lesions. 11/28/2019 11:34 AM CDT [facility] Other (Cervical/Vagina l) 11/17/2019 11:15 AM CDT 11/18/2019 11:25 AM CDT Allyson Musa MD PATHOLOGY/CYTOLOGY Final Result [facility] [address] [place] [address], [place] * SCAN-MAMMOGRAPHY REPORT (04/09/2016 12:00 AM NITROCELLULOSE OPERATOR) Anatomical Region Laterality Modality Other us Scanner OTHER Final Result * (ABNORMAL) LIPID PANEL W REFLEX MEASURED LDL (10/27/2015 9:52 AM CDT) CHOLESTEROL,TOTAL 191 100 - 199 mg/dL 10/27/2015 10:21 AM CDT [facility] TRIGLYCERIDES 178(H) <150 mg/dL 10/27/2015 10:21 AM CDT [facility] HDL CHOLESTEROL 48 >40 mg/dL 10/27/2015 10:21 AM CDT [facility] NON-HDL CHOLESTEROL 143 <145 mg/dl 10/27/2015 10:21 AM CDT [facility] CHOL/HDL RATIO 3.98 <4.50 10/27/2015 10:21 AM CDT [facility] LDL CHOLESTEROL 107 <=130 mg/dL 10/27/2015 10:21 AM CDT [facility] PATIENT STATUS FASTING 10/27/2015 10:21 AM CDT [facility] Blood BLOOD SPECIMEN / Unknown Venipuncture / Unknown 10/27/2015 9:52 AM CDT 10/27/2015 9:52 AM CDT us Nancy Merino MD CHEMISTRY Nandini l Result [facility] [address] [place] [address], from Last 3 Months or Most Recently Relevant to Health Maintenance Insurance [address] [place] [address] [employer] [id number] Advance Directives Documents on File Type Date Recorded Patient Deck Cadet Expl anation Healthcare Directive 05/09/2005 HEALTH CARE DIRECTIVE, [facility], 05/09/05 * Full Code (Latest Code Status on File) Date Activated Date Inactivated Comments 04/14/2012 6:39 PM 04/15/2012 2:11 PM * Full Code Date Activated Date Inactivated Comments 04/14/2012 12:15 PM 04/14/2012 6:39 PM Care Teams Floor Covering Layer Relationship Specialty Start Date End Date Allyson Musa MD [address] [place] [address] PCP - General Family Practice 09/27/22
[2024-03-22] MEDS: LACTATED RINGERS 1000 ML 1,000 ML 100 ML IV (06:37)
[2024-03-22] MEDS: OXYCODONE (CR) 10 MG TAB.ER.12H PO (06:37)
[2024-03-22] MEDS: SODIUM CHLORIDE 0.9 % (FLUSH) 10 ML SYRINGE IVF (06:37)
[2024-03-22] MEDS: ACETAMINOPHEN 500 MG TABLET 1000 MG PO (06:37)
[2024-03-22] MEDS: MIDAZOLAM HCL 1 MG/ML inj IVP (07:03)
[2024-03-22] MEDS: fentaNYL 100 MCG/2 ML inj IVP (07:03)
--- NOTE | 2024-03-22 07:07 | W.PM.H&PU ---
History & Physical Update History & Physical Update H&P Reviewed and patient assessed: No changes noted
--- NOTE | 2024-03-22 07:09 | SUR.PREOP ---
TIME?OUT:?0703 PT/RN/MDA?VERIFICATION?OF?SURGICAL?SITE,?PROCEDURE,?AND?CONSENT OBTAINED?PRIOR?TO?INVASIVE?PROCEDURE.
[2024-03-22] MEDS: CEFAZOLIN 2 GM in 0.9 % SODIUM CHLORIDE Mini-bag 100 ML IVPB (07:35)
[2024-03-22] MEDS: TRANEXAMIC ACID 100 MG/ML INJ 1000 MG IV (07:36)
--- NOTE | 2024-03-22 08:36 | PM.ORPRC ---
Procedure Note Date of procedure: 03/22/24 Procedure: PREOPERATIVE DIAGNOSIS: 1. Right knee osteoarthritis, primary, severe POSTOPERATIVE DIAGNOSIS: 1. Right knee osteoarthritis, primary, severe PROCEDURE: 1. Right total knee arthroplasty SURGEON: Chi Hawley MD. INK MAKER: THAO Anne - Of note, a skilled human resources office assistant was critical for this case to aid in patient positioning, tissue retraction, limb manipulation/positioning, and closure. ANESTHESIA: Spinal anesthetic EBL: 50ml IMPLANTS: DePuy J&J uncemented TKA - Attune uncemented throughout PS femur size 5 standard Size 4 tibia 5mm poly spacer 32 mm Affixium patella TOURNIQUET: 80 min at 300 torr COMPLICATIONS: None evident INDICATIONS: The patient is a pleasant 63yo female who has experienced severe right knee pain and difficulty bearing weight. Workup included x-rays which revealed severe osteoarthrosis in the knee. Given the deformity, the dysfunction, and the pain, as well as the failure of nonoperative management, recommendation was made for surgery. FINDINGS: Full-thickness chondral loss diffusely throughout the medial as well as patellofemoral compartments. To lesser degree lateral compartment chondromalacia. Degenerative meniscus pathology, medial greater than lateral. Moderate effusion upon entering the joint. DESCRIPTION OF PROCEDURE: Following a thorough discussion of risks, benefits, and alternatives consent was obtained and the right knee was marked. The patient was brought to the operating room and placed supine on the operating table. Induction of anesthesia was undertaken. 2 g IV Ancef and 1 g tranexamic acid was administered within 1 hr of incision preoperatively. Proper time-out was performed identifying proper patient, site, procedure. The operative extremity was prepped and draped in the appropriate sterile fashion using ChloraPrep after the patient was positioned supine with all bony prominences well padded. A longitudinal, anterior, midline skin incision was made starting approximately 3cm proximal to the superior pole of the patella and advanced distal to the tibial tubercle. A sub vastus approach was utilized . After mobilizing the patella, retropatellar fatpad was resected and the synovium in the suprapatellar pouch excised to visualize the anterior femoral cortex. Femoral preparation was performed via an intramedullary guide. Step drill allowed access into the femoral canal. The distal cutting guide was placed with 5? of valgus and 11 mm cut on the distal femur due to a 5-7 degree flexion contracture. Femur was sized using a anterior referencing guide in 3? of external rotation. This found have a best fit with the sizing noted above. The 4 in 1 cutting block was then placed, and the distal femur shaped accordingly. The box cut was then created and the trial implant inserted to confirm appropriate fit. We turned our attention to the proximal tibia. Extramedullary guide was utilized for cutting with the goal of being 90 degree cut from the mechanical axis of the tibia in the varus/valgus plane utilizing tibial crest as the primary alignment. Initially a 2 mm resection was performed from the medial tibial plateau. Ultimately, balancing was achieved in both flexion and extension in both varus and valgus. The knee was able to achieve full extension comfortably. It was sized to be a best fit with as noted above. Patellar prep began with an initial measurement/thickness of 22.5 mm. It was resected back to approximately 14.5 mm. The patella prep was completed with drilling and a trial placed. At this stage, trial implants were removed, the tibia and femoral and patellar components were opened and inserted. The real poly spacer was opened and inserted. A 3 min Betadine soak performed. Finally, a final irrigation round with normal saline was performed. Closure performed with 0 PDS and #0 Stratafix for the quad tendon/retinaculum. 2-0 Vicryl/Stratafix for the subcutaneous and 4-0 Monocryl for subcuticular closure. Dressings were applied and the patient was awoken from anesthesia after the tourniquet deflated and transferred the PACU in stable condition. A skilled human resources office assistant was critical for this case to aid in patient positioning, tissue retraction, bone exposure, limb manipulation/positioning, patient safety, and closure. PLAN: 1. Weight bear as tolerated operative extremity. 2. 23 hr perioperative antibiotics. 3. Ice. 4. PT/OT consults for ambulation assistance/mobility education. 5. Social work consult for discharge planning. 6. DVT prophylaxis with at SCDs, and aspirin twice daily.
--- NOTE | 2024-03-22 08:50 | CRLHL7_ITS ---
For Patients: As a result of the Cures Act, medical imaging exams and procedure reports are released immediately into your electronic medical record. You may view this report before your referring provider. If you have questions, please contact your health care provider. Indication: Post op right TKA Technique: Two views right knee Findings/Impression: Hardware from a right total knee arthroplasty is in satisfactory position. Bone alignment is normal. No sign of acute fracture. Postop changes are within normal limits. Dictated by Richard Ospina MD @ 03/22/2024 11:42:13 AM (Electronically Signed)
--- NOTE | 2024-03-22 08:57 | W.PM.NB ---
Nerve Block Nerve Block Time Seen by Provider: 07:05 Date Seen: 03/22/24 Type of block requested by surgeon for post-operative analgesia: adductor canal Side: right Time out performed: Yes Verification of patient name: Yes Verification of date of : Yes Site marking: site marked Name of person performing procedure: Dennis Continuous monitoring Was continuous monitoring of O2 sat, B/P, registered nurse cardiac, recorded every 15 minutes?: Yes Procedure Checklist: sterile prep, needles and gloves Ultrasound guided. Images saved: Yes Medications given in 5ml increments after negative aspiration: Marcaine %: 0.25 mL: 15 Needle gauge: 20 Precedex (mcg): 25 Patient tolerated procedure well: Yes Block Charges Block Charge (with Pro Fee): Femoral Nerve Use of Ultrasound Machine for Block: Yes- US Guidance/pain block
--- NOTE | 2024-03-22 08:57 | W.PM.NB ---
Nerve Block Nerve Block Time Seen by Provider: 07:05 Date Seen: 03/22/24 Type of block requested by surgeon for post-operative analgesia: geniculars Side: right Time out performed: Yes Verification of patient name: Yes Verification of date of : Yes Site marking: site marked Name of person performing procedure: Dennis Continuous monitoring Was continuous monitoring of O2 sat, B/P, belt repairer, recorded every 15 minutes?: Yes Procedure Checklist: sterile prep, needles and gloves Ultrasound guided. Images saved: Yes Medications given in 5ml increments after negative aspiration: Marcaine %: 0.25 mL: 9 Needle gauge: 25 Patient tolerated procedure well: Yes Block Charges Block Charge (with Pro Fee): Genicular Nerve Block
--- NOTE | 2024-03-22 09:01 | W.ANESCHARGE ---
Anesthesia Charges Start Date/Time Anesthesia Start Date: 03/22/24 Anesthesia Start Time: 07:25 Stop Date/Time Anesthesia Stop Date: 03/22/24 Anesthesia Stop Time: 09:06
--- NOTE | 2024-03-22 09:07 | W.ANESCHARGE ---
Anesthesia Charges Start Date/Time Anesthesia Start Date: 03/22/24 Anesthesia Start Time: 07:25 Stop Date/Time Anesthesia Stop Date: 03/22/24 Anesthesia Stop Time: 09:06
--- NOTE | 2024-03-22 09:29 | SUR.PHASEI ---
xray here for ap/lat right knee
[2024-03-22] MEDS: ACETAMINOPHEN 325 MG TABLET PO (12:30)
== END 2024-03-22 13:40 | disposition home or self-care (01) ==
LOC: OR 06:14
PROVIDERS: PCP Family Medicine; Visit Provider Orthopaedic Surgery Sports Medicine
PROC: (CPT 27447; principal; 2024-03-22 07:30)
DX: M17.11 Unilateral primary osteoarthritis, right knee (principal); G89.18 Other acute postprocedural pain; I10 Essential (primary) hypertension; E66.9 Obesity, unspecified; R73.03 Prediabetes; D64.9 Anemia, unspecified; F32.1 Major depressive disorder, single episode, moderate; Z68.32 Body mass index [BMI] 32.0-32.9, adult
CPT/HCPCS: 27447; 01402; 64447; 64454; 73560; 76942; 97110; 97116; 97161; A9270; C1776; J0665; J0690; J1100; J2250; J2405; J2704; J3010; J7120

== ENCOUNTER 2024-05-21 13:00 | Outpatient (RCR) | payer MEDICARE, BC, SELFPAY ==
--- NOTE | 2024-03-24 17:19 | PT.OPEX ---
PT [facility] Outpatient Eval PT [facility] Outpatient Eval Start: 03/24/24 12:33 Freq: Status: Active Protocol: Document 03/24/24 12:33 ASHLEE (Rec: 03/24/24 17:15 [facility] [id number]) E-signed By Loli Hawkins PT Physical Therapy Outpatient Evaluation Insurance Information Recert Due Date 04/02/24 Insurance Name Medicare B Medical Diagnosis RIGHT KNEE OA Treating Diagnosis RIGHT KNEE PAIN WEAKNESS Referring MD HOOD Subjective Preferred Name NEERAJ Subjective PATIENT REPORTS LONG H/O KNEE ISSUES LEFT>RIGHT WITH H/O LEFT TKA. SHE REPORTS PREVIOUS DIFFICULTY WITH COMMUNITY AMB , STAIRS, AND PROLONGED STDG THAT WORSENED TO THE POINT OF DECIDING TO MOVE FWD WITH A REPLACEMENT. Pain Comments 10/24 Date of Last Physician Visit 12/30/23 Date of Next Physician Visit 04/01/24 Date of Surgery (If applicable) 03/22/24 Current Work Status Retired Precautions Weight Bearing Status Weight Bear as Tolerated Therapy Limitations/Systems Review Not Limited Objective Other/Pertinent Objective 03/24/23: SUPINE AROM 0-9-90; MODERATED EDEMA FROM MID THIGH TO CALF; INCISION COVERED AND ABSENT OF S/S OF INFECTION. MIN BRUISING. Assessment Assessment/Impression PATIENT IS A 63YO REFERR[address] BY DR. HOOD TO EVAL AND TREAT S/P RIGHT TKA. PATIENT DEMONSTRATES SIGNS AND SYMPTOMS CONSISTENT WITH DX CONTRIBUTING TO THEIR FUNCTIONAL IMPAIRMENTS OF DIFFICULTY WITH TRANSFERS, STAIRS, GT ON ALL SURFACES, AND ADL'S. PATIENT HAS NOTABLE OBJECTIVE FINDING INCLUDING PAIN, EDEMA, DECREASED ROM, AND WEAKNESS WHICH ALL ARE CONTRIBUTING TO THE CLINICAL IMPRESSION. PATIENT IS A GOOD CANDIDATE FOR SKILLED PHYSICAL THERAPY TO ADDRESS AFOREMENTIONED DEFICITS ABOVE IN ORDER TO RETURN TO UNASSISTED COMMUNITY AMB, DRIVING, AND FULL PARTICIPATION IN FAMILY AND PEER CENTERED ACTIVITIES. INTERVENTION IS NECESSARY BY WAY OF THERAPEUTIC EXERCISES, MANUAL THERAPY, NEUROMUSCULAR EDUCATION, AND STABILIZATION/ PROPRIOCEPTION. PLEASE REFER TO APPROPRIATE SECTION WITHIN THIS EVALUATION FOR COMPLETE LIST OF GOALS AND PLAN OF CARE . DISCHARGE PLAN AND CRITERIA IS FOR PATIENT TO ACHIEVE THE GOALS LISTED BELOW OR UNTIL MAX POTENTIAL MET. PATIENT VERBALIZED UNDERSTANDING AND AGREEABLE TO POC, FREQ, AND GOALS ESTABLISHED. Primary Functional Limitations GAIT STAIRS SQUATING KNEELING PROLONGED STDG TRANSFERS Plan of Care Rehabilitation Potential Good Physical Therapy Goals 1. DECREASE R/L KNEE PAIN TO < /3/10 WITH ADL'S AND PROGRESSION OF PHYSICAL THERAPY OVER THE NEXT 4-6 WEEKS 2. IMPROVE ROM OF R/L KNEE TO 0-0-120 IN SUPINE (OR GREATER) TO RETURN TO FUNCTIONAL ROM AND IMPROVE GAIT MECHANICS OVER THE NEXT 6-8 WEEKS 3. IMPROVE R/L KNEE/LE FUNCTIONAL MOBILITY AND FUNCTIONAL STRENGTH TO RETURN TO INDEPENDENT TRANSFERS WITH EASE, EXTENDED STANDING AND WALKING FOR ADL'S, HOUSEHOLD ACTIVITIES AND IMPROVED GAIT MECHANICS OVER THE NEXT 8-10 WEEKS. 4. PATIENT WILL DEMONSTRATE COMPLETE INDEPENDENCE AND THE ABILITY TO PROGRESS HIS HEP FOR MAINTENANCE AND CONTINUED IMPROVEMENT OF HIS CORE / BLE STRENGTH AND STABILITY. Coordination/Communication With Referral Source Treatment Plan/Direct Interventions Gait Training,Ice/Cold/ Vasopneumatic,Joint Mobilization,Manual Therapy, Neuromuscular Re-ed,Self-Care/ Home Management,Therapeutic Activities,Therapeutic Exercises Frequency/Duration 2X/WK Patient Will Be Discharged From Therapy Completion of LTG(s), Independent w/HEP Evaluation Billing Untimed Code Treatment Minutes 15 Complexity Low Certification Information Initial Certification Date 03/24/24 Ending Certification Date 06/21/24 Provider Signature Required Yes Provider Signature Shows Agreement With POC & Medical Necessity Physician NPI Number Write NPI# Here Physician Comment/Change : Physician Signature & Date Requested Please Sign/Date Here
== END 2024-06-17 10:00 | disposition home or self-care (01) ==
PROVIDERS: PCP Family Medicine; Visit Provider Orthopaedic Surgery Sports Medicine
DX: M17.11 Unilateral primary osteoarthritis, right knee (principal); Z96.651 Presence of right artificial knee joint; M25.561 Pain in right knee; R53.1 Weakness; Z51.89 Encounter for other specified aftercare
CPT/HCPCS: 97110; 97161

== ENCOUNTER 2024-07-16 09:28 | Outpatient (CLI) | payer MEDICARE, BC, SELFPAY ==
--- NOTE | 2024-07-16 09:45 | CRLHL7_ITS ---
For Patients: As a result of the Century Cures Act, medical imaging exams and procedure reports are released immediately into your electronic medical record. You may view this report before your referring provider. If you have questions, please contact your health care provider. INDICATION: BILATERAL SCREENING MAMMOGRAM, ASYMPTOMATIC 64 Y/O FEMALE COMPARISON: 06/16/23, 06/12/22, 06/08/21 TECHNIQUE: CC and MLO views were obtained. These mammographic images have been obtained using full-field digital technique. These mammographic images were interpreted with the benefit of computer aided detection and tomosynthesis. BREAST COMPOSITION: There are scattered areas of fibroglandular density. FINDINGS: No suspicious findings. ASSESSMENT: BI-RADS 2 Benign RECOMMENDATION: Annual screening mammogram. A lay language report of this examination will be provided to the patient. Dictated by: Richard Ospina MD @ 07/20/2024 12:10:07 (Electronically Signed)
== END 2024-07-16 09:29 | disposition home or self-care (01) ==
LOC: MAMMO 09:29
PROVIDERS: PCP Family Medicine; Visit Provider Family Medicine
DX: Z12.31 Encounter for screening mammogram for malignant neoplasm of breast (principal)
CPT/HCPCS: 77063; 77067

== ENCOUNTER 2024-08-16 15:19 | Outpatient (CLI) | payer MEDICARE, BC, SELFPAY ==
--- NOTE | 2024-08-16 15:45 | CRLHL7_ITS ---
For Patients: As a result of the Cures Act, medical imaging exams and procedure reports are released immediately into your electronic medical record. You may view this report before your referring provider. If you have questions, please contact your health care provider. BILATERAL CAROTID ULTRASOUND INDICATION: Retinal vein occlusion. TECHNIQUE: The carotid circulations and the vertebral arteries in the neck were examined with paez-scale ultrasound, color-flow and Doppler spectral analysis. Degrees of stenosis were determined using SRU 2002 Consensus Panel Criteria. COMPARISON: No comparisons. FINDINGS: Minor plaque formation is seen within the carotid bifurcations bilaterally. Antegrade flow within the vertebral arteries bilaterally. RIGHT: PEAK SYSTOLIC VELOCITY Subclavian Artery: 182.7 Distal CCA: 77.1 Mid CCA: 81.6 Proximal ICA: 51.3 Mid ICA: 62.6 Distal ICA: 91.7 ICA/CCA Ratio: 1.2 Vertebral Artery: 58.9, antegrade LEFT: PEAK SYSTOLIC VELOCITY Subclavian Artery: 169.7 Distal CCA: 92.9 Mid CCA: 94.7 Proximal ICA: 54.4 Mid ICA: 80.7 Distal ICA: 83.2 ICA/CCA Ratio: 0.9 Vertebral Artery: 67.7, antegrade IMPRESSION: Minimal, less than 50% narrowing of the cervical internal carotid arteries bilaterally based on SRU Consensus Criteria. PATSY MIXON D.O. Neuroradiologist [email or web address] Transcribed: 9:[address]/Dictated by: Angelo Mixon MD @ 08/17/2024 9:20:00 AM (Electronically Signed)
== END 2024-08-16 15:20 | disposition home or self-care (01) ==
LOC: US 15:20
PROVIDERS: PCP Family Medicine; Visit Provider Family Medicine
DX: H34.8312 Tributary (branch) retinal vein occlusion, right eye, stable (principal); I65.23 Occlusion and stenosis of bilateral carotid arteries
CPT/HCPCS: 93880

== ENCOUNTER 2024-08-19 10:49 | Outpatient (CLI) | payer MEDICARE, BC, SELFPAY | END 2024-08-19 10:50 | disposition home or self-care (01) | LOC: NFLDREF 08-21 07:44 | PROVIDERS: PCP Family Medicine; Referring Provider Family Medicine; Visit Provider Family Medicine | DX: E78.5 Hyperlipidemia, unspecified (principal); R73.03 Prediabetes; I10 Essential (primary) hypertension; H34.8312 Tributary (branch) retinal vein occlusion, right eye, stable | CPT/HCPCS: 80048; 80061 ==

== ENCOUNTER 2024-08-24 14:24 | Outpatient (CLI) | payer MEDICARE, BC, SELFPAY ==
[2024-08-26 16:26] LABS: HPV Source Cervical; HPV, High Risk by TMA Not Detected
== END 2024-08-24 14:25 | disposition home or self-care (01) ==
PROVIDERS: PCP Family Medicine; Visit Provider Obstetrics & Gynecology
DX: R39.15 Urgency of urination (principal); Z11.51 Encounter for screening for human papillomavirus (HPV); Z12.4 Encounter for screening for malignant neoplasm of cervix
CPT/HCPCS: 87086; 87624; 87625; 88141; 88142

== ENCOUNTER 2024-12-07 09:15 | Outpatient (CLI) | payer MEDICARE, BC, SELFPAY | END 2024-12-07 09:16 | disposition home or self-care (01) | LOC: NFLDREF 12-13 01:37 | PROVIDERS: PCP Family Medicine; Referring Provider Family Medicine; Visit Provider Family Medicine | DX: I10 Essential (primary) hypertension (principal); E78.5 Hyperlipidemia, unspecified | CPT/HCPCS: 80053; 80061 ==

== ENCOUNTER 2025-01-24 07:07 | Outpatient (CLI) | payer MEDICARE, BC, SELFPAY ==
--- NOTE | 2025-01-24 09:11 | P.ANES_ITS ---
Anesthesia Charges Start Date/Time Anesthesia Start Date: 01/24/25 Anesthesia Start Time: 08:23 Stop Date/Time Anesthesia Stop Date: 01/24/25 Anesthesia Stop Time: 09:10 Coding CPT Codes CPT Codes: ANES LWR INTST NDSC NOS - 34167 ([id number]) P3 - PATIENT W/SEVERE SYS DISEASE, QX - ROAD MECHANIC SVC W/ MD MED DIRECTION, QK - ASSISTANT TEACHER PRIMARY 2-4 CNCRNT ANES PROC
--- NOTE | 2025-01-24 09:11 | W.ANESCHARGE ---
Anesthesia Charges Start Date/Time Anesthesia Start Date: 01/24/25 Anesthesia Start Time: 08:23 Stop Date/Time Anesthesia Stop Date: 01/24/25 Anesthesia Stop Time: 09:10 Coding CPT Codes CPT Codes: ANES LWR INTST NDSC NOS - [id number] ([id number]) P3 - PATIENT W/SEVERE SYS DISEASE, QX - SATURATION EQUIPMENT OPERATOR SVC W/ MD MED DIRECTION, QK - FISCAL ANALYST 2-4 CNCRNT ANES PROC
--- NOTE | 2025-01-24 09:31 | P.ANES_ITS ---
Anesthesia Charges Start Date/Time Anesthesia Start Date: 01/24/25 Anesthesia Start Time: 08:23 Stop Date/Time Anesthesia Stop Date: 01/24/25 Anesthesia Stop Time: 09:10 Coding CPT Codes CPT Codes: ANES LWR INTST NDSC NOS - [id number] ([id number]) QK - DIESEL ENGINE ASSEMBLER 2-4 CNCRNT ANES PROC, QX - ELEMENTARY ELL TEACHER SVC W/ MED DIRECTION, P3 - PATIENT W/SEVERE SYS DISEASE
--- NOTE | 2025-01-24 09:31 | W.ANESCHARGE ---
Anesthesia Charges Start Date/Time Anesthesia Start Date: 01/24/25 Anesthesia Start Time: 08:23 Stop Date/Time Anesthesia Stop Date: 01/24/25 Anesthesia Stop Time: 09:10 Coding CPT Codes CPT Codes: ANES LWR INTST NDSC NOS - [id number] ([id number]) QK - SCREEN CLEANER 2-4 CNCRNT ANES PROC, QX - UTILITY MAINTENANCE WORKER SVC W/ MED DIRECTION, P3 - PATIENT W/SEVERE SYS DISEASE
== END 2025-01-24 07:08 | disposition home or self-care (01) ==
LOC: OP CLINIC 07:08
PROVIDERS: PCP Family Medicine; Visit Provider Surgery
DX: Z12.11 Encounter for screening for malignant neoplasm of colon (principal); D12.3 Benign neoplasm of transverse colon
CPT/HCPCS: 00811; 00812; 45385; J2704